=== PATIENT | female | born 1940 | race Caucasian/White ===

== ENCOUNTER 2017-10-25 12:09 | Emergency (ER) | payer MEDICARE, OTHER ==
[~2017-10-25] VITALS: Ht 142.2 cm; Wt 64.4 kg
[~2017-10-25 12:09] MED LIST: ASCO500 PO; ASPI81CH PO; ATOR20 PO; Augmentin 875-1 EACH PO; CALMAGZIN PO; CHOL10002 PO; Excedrin Extra1 EACH PO; FERSU300 PO; FLUC150A PO; GLUC500 PO; GLUCHON PO; HYDACE5 PO; HYDCHL12.5 PO; Hydrochloroth12.5 MG PO; Isosorbide Mono30 MG PO; KETO15TC TOP; LANS30EC PO; LISHYD1012 PO; METF500 PO; METF500C PO; METO25ER PO; MULVITMIND PO; Multiple Vitam1 EAC1 PO; NAPR220 PO; ONDA4 PO; QUININE SULFAT324 MG PO; SULTRIDS PO; Super B Comple150 MG PO; TURMERIC500 M1 PO
[2017-10-25] MEDS ORDERED: HYDACE25S PR (12:49)
== END 2017-10-25 13:05 | disposition home or self-care (01) ==
LOC: ER 12:09
DX: K59.00 Constipation, unspecified (principal); K64.4 Residual hemorrhoidal skin tags; Z88.8 Allergy status to other drugs, medicaments and biological substances; Z79.899 Other long term (current) drug therapy; Z79.84 Long term (current) use of oral hypoglycemic drugs; Z79.82 Long term (current) use of aspirin; Z79.2 Long term (current) use of antibiotics; E11.9 Type 2 diabetes mellitus without complications; I10 Essential (primary) hypertension
CPT/HCPCS: 99283

== ENCOUNTER 2017-11-05 13:56 | Emergency (ER) | payer MEDICARE, OTHER ==
[~2017-11-05] VITALS: Ht 142.2 cm; Wt 61.7 kg
[~2017-11-05 13:56] MED LIST changes: +HYDACE25S PR
[2017-11-05 14:32] LABS: BASOPHILS ABSOLUTE AUTO 0.04 K/mm3 (0.00-0.23); BASOPHILS PERCENT AUTO 1 % (0-2); EOSINOPHILS ABSOLUTE AUTO 0.08 K/mm3 (0.00-0.68); EOSINOPHILS PERCENT AUTO 1 % (0-6); Hematocrit 43.2 % (33.0-51.0); Hemoglobin 13.5 g/dL (11.5-16.0); IMMATURE GRAN ABSOLUTE AUTO 0.08 K/mm3 (0.00-0.10); IMMATURE GRAN PERCENT AUTO 1 % (0-1); LYMPHOCYTES PERCENT AUTO 15 % (21-46); MONOCYTES ABSOLUTE AUTO 0.63 K/mm3 (0.16-1.47); MONOCYTES PERCENT AUTO 8 % (4-13); Mean Corpuscular HGB 29.6 pg (26.0-34.0); Mean Corpuscular HGB Conc 31.3 g/dL (31.5-36.5); Mean Corpuscular Volume 95 fL (80-100); Mean Platelet Volume 9.4 fL (9.1-12.4); NEUTROPHILS ABSOLUTE AUTO 6.26 K/mm3 (1.96-9.15); NEUTROPHILS PERCENT AUTO 75 % (41-73); Platelet Count 304 K/mm3 (150-400); RDW Coefficient Variation 15.9 % (11.7-14.2); RDW Standard Deviation 56.4 fL (35.1-46.3); Red Blood Cell Count 4.56 M/mm3 (3.80-5.20); White Blood Cell Count 8.29 K/mm3 (4.00-11.30)
[2017-11-05 14:51] LABS: Alanine Aminotransfer (ALT/SGP 14 U/L (12-78); Albumin, Blood 2.7 g/dL (3.4-5.0); Albumin/Globulin Ratio 0.6 (0.8-1.8); Alk Phos 72 U/L (50-136); Anion Gap 10 mmol/L (6-16); Aspartate Aminotrans (AST/SGOT 13 U/L (12-37); Bilirubin, Total 0.2 mg/dL (0.1-1.0); Blood Urea Nitrogen 16 mg/dL (8-24); Bun/Creatinine Ratio 18.9 (12.0-20.0); CO2, Blood 24 mmol/L (21-32); Calcium, Blood 8.7 mg/dL (8.5-10.1); Chloride, Blood 110 mmol/L (98-108); Creatinine, Blood 0.85 mg/dL (0.40-1.00); Globulin, Blood 4.3 g/dL (2.2-4.0); Glomerular Filtration Rate >60 (60-); Glucose, Blood 123 mg/dL (70-99); Potassium, Blood 3.9 mmol/L (3.5-5.5); Sodium, Blood 144 mmol/L (136-145)
[2017-11-05] MEDS ORDERED: HYDCHL12.5 PO (14:52)
[2017-11-05] MEDS ORDERED: CHRO200 PO (14:53)
[2017-11-05] MEDS ORDERED: Super B Comple150 MG PO (14:53)
[2017-11-05] MEDS ORDERED: Ferrous Sulfat325 MG PO (14:54)
[2017-11-05] MEDS ORDERED: Flagyl500 MG PO (16:14)
== END 2017-11-05 16:57 | disposition home or self-care (01) ==
LOC: ER 13:56
PROVIDERS: Nurse Practitioner Family
DX: K52.9 Noninfective gastroenteritis and colitis, unspecified (principal); I10 Essential (primary) hypertension; E11.9 Type 2 diabetes mellitus without complications; K21.9 Gastro-esophageal reflux disease without esophagitis
CPT/HCPCS: 36415; 74176; 80053; 81000; 85025; 99284

== ENCOUNTER 2017-11-19 19:13 | Emergency (ER) | payer MEDICARE, OTHER ==
[~2017-11-19] VITALS: Ht 142.2 cm; Wt 64.9 kg
[~2017-11-19 19:13] MED LIST changes: +CHRO200 PO; +Ferrous Sulfat325 MG PO; +Flagyl500 MG PO
[2017-11-19] MEDS ORDERED: FURO20 PO (20:47)
[2017-11-19 20:49] LABS: BASOPHILS ABSOLUTE AUTO 0.03 K/mm3 (0.00-0.23); BASOPHILS PERCENT AUTO 0 % (0-2); EOSINOPHILS ABSOLUTE AUTO 0.18 K/mm3 (0.00-0.68); EOSINOPHILS PERCENT AUTO 2 % (0-6); Hematocrit 42.8 % (33.0-51.0); Hemoglobin 13.8 g/dL (11.5-16.0); IMMATURE GRAN ABSOLUTE AUTO 0.04 K/mm3 (0.00-0.10); IMMATURE GRAN PERCENT AUTO 1 % (0-1); LYMPHOCYTES ABSOLUTE AUTO 1.51 K/mm3 (0.84-5.20); LYMPHOCYTES PERCENT AUTO 20 % (21-46); MONOCYTES ABSOLUTE AUTO 0.62 K/mm3 (0.16-1.47); MONOCYTES PERCENT AUTO 8 % (4-13); Mean Corpuscular HGB 30.1 pg (26.0-34.0); Mean Corpuscular HGB Conc 32.2 g/dL (31.5-36.5); Mean Corpuscular Volume 93 fL (80-100); Mean Platelet Volume 9.6 fL (9.1-12.4); NEUTROPHILS ABSOLUTE AUTO 5.03 K/mm3 (1.96-9.15); NEUTROPHILS PERCENT AUTO 68 % (41-73); Platelet Count 269 K/mm3 (150-400); RDW Coefficient Variation 16.3 % (11.7-14.2); RDW Standard Deviation 55.7 fL (35.1-46.3); Red Blood Cell Count 4.59 M/mm3 (3.80-5.20); White Blood Cell Count 7.41 K/mm3 (4.00-11.30)
[2017-11-19 21:11] LABS: Alanine Aminotransfer (ALT/SGP 14 U/L (12-78); Albumin, Blood 2.9 g/dL (3.4-5.0); Albumin/Globulin Ratio 0.8 (0.8-1.8); Alk Phos 53 U/L (50-136); Anion Gap 9 mmol/L (6-16); Aspartate Aminotrans (AST/SGOT 21 U/L (12-37); Bilirubin, Total 0.3 mg/dL (0.1-1.0); Blood Urea Nitrogen 15 mg/dL (8-24); Bun/Creatinine Ratio 15.4 (12.0-20.0); CO2, Blood 24 mmol/L (21-32); Calcium, Blood 8.5 mg/dL (8.5-10.1); Chloride, Blood 106 mmol/L (98-108); Creatinine, Blood 0.97 mg/dL (0.40-1.00); Globulin, Blood 3.8 g/dL (2.2-4.0); Glomerular Filtration Rate 59 (60-); Glucose, Blood 152 mg/dL (70-99); Magnesium, Blood 1.3 mg/dL (1.6-2.4); Potassium, Blood 3.8 mmol/L (3.5-5.5); Sodium, Blood 139 mmol/L (136-145); Total Protein, Blood 6.7 g/dL (6.4-8.2); Troponin I <0.015 ng/mL (0.000-0.040)
== END 2017-11-19 22:10 | disposition home or self-care (01) ==
LOC: ER 19:13
PROVIDERS: Emergency Medicine
DX: E86.0 Dehydration (principal); R60.0 Localized edema; R53.1 Weakness; E11.9 Type 2 diabetes mellitus without complications; Z95.5 Presence of coronary angioplasty implant and graft; Z90.49 Acquired absence of other specified parts of digestive tract; Z88.1 Allergy status to other antibiotic agents; Z88.8 Allergy status to other drugs, medicaments and biological substances; Z88.7 Allergy status to serum and vaccine; Z79.84 Long term (current) use of oral hypoglycemic drugs; Z79.899 Other long term (current) drug therapy
CPT/HCPCS: 36415; 71046; 80053; 81000; 83735; 84443; 84484; 85025; 93005; 93010; 99284

== ENCOUNTER 2017-12-13 05:45 | Inpatient (IN) | payer MEDICARE, OTHER ==
[~2017-12-13] VITALS: Ht 142.2 cm; Wt 66.9 kg
[~2017-12-13 05:45] MED LIST changes: +FURO20 PO
[2017-12-13] MEDS ORDERED: Anucort-Hc25 MG PR (06:18)
[2017-12-13] MEDS ORDERED: DOCU100 PO (06:19)
[2017-12-13] MEDS ORDERED: ISOMON20 PO (06:20)
[2017-12-13] MEDS ORDERED: Nitrostat0.4 MG SL (06:22)
[2017-12-13] MEDS ORDERED: MAGOXI400 PO (06:23)
[2017-12-13 06:44] LABS: BASOPHILS ABSOLUTE AUTO 0.04 K/mm3 (0.00-0.23); BASOPHILS PERCENT AUTO 1 % (0-2); EOSINOPHILS ABSOLUTE AUTO 0.18 K/mm3 (0.00-0.68); EOSINOPHILS PERCENT AUTO 2 % (0-6); Hematocrit 35.4 % (33.0-51.0); Hemoglobin 11.1 g/dL (11.5-16.0); IMMATURE GRAN PERCENT AUTO 1 % (0-1); LYMPHOCYTES ABSOLUTE AUTO 1.03 K/mm3 (0.84-5.20); LYMPHOCYTES PERCENT AUTO 13 % (21-46); MONOCYTES ABSOLUTE AUTO 0.49 K/mm3 (0.16-1.47); MONOCYTES PERCENT AUTO 6 % (4-13); Mean Corpuscular HGB 30.3 pg (26.0-34.0); Mean Corpuscular HGB Conc 31.4 g/dL (31.5-36.5); Mean Corpuscular Volume 97 fL (80-100); Mean Platelet Volume 9.5 fL (9.1-12.4); NEUTROPHILS ABSOLUTE AUTO 6.15 K/mm3 (1.96-9.15); NEUTROPHILS PERCENT AUTO 77 % (41-73); Platelet Count 256 K/mm3 (150-400); RDW Coefficient Variation 15.5 % (11.7-14.2); Red Blood Cell Count 3.66 M/mm3 (3.80-5.20); White Blood Cell Count 7.99 K/mm3 (4.00-11.30)
[2017-12-13 07:03] LABS: Albumin, Blood 2.3 g/dL (3.4-5.0); Albumin/Globulin Ratio 0.7 (0.8-1.8); Bilirubin, Total 0.3 mg/dL (0.1-1.0); Bun/Creatinine Ratio 20.1 (12.0-20.0); Globulin, Blood 3.4 g/dL (2.2-4.0); Total Protein, Blood 5.7 g/dL (6.4-8.2)
[2017-12-13 07:16] LABS: International Normalized Ratio 1.09; Prothrombin Time Results 11.4 Sec (9.7-11.5)
[2017-12-13] MEDS ORDERED: METO25ER PO (13:15)
[2017-12-13] MEDS ORDERED: CHOL10002 PO (13:15)
[2017-12-14 04:57] LABS: BASOPHILS ABSOLUTE AUTO 0.05 K/mm3 (0.00-0.23); BASOPHILS PERCENT AUTO 1 % (0-2); EOSINOPHILS ABSOLUTE AUTO 0.24 K/mm3 (0.00-0.68); EOSINOPHILS PERCENT AUTO 4 % (0-6); Hemoglobin 8.6 g/dL (11.5-16.0); IMMATURE GRAN ABSOLUTE AUTO 0.06 K/mm3 (0.00-0.10); IMMATURE GRAN PERCENT AUTO 1 % (0-1); LYMPHOCYTES ABSOLUTE AUTO 1.24 K/mm3 (0.84-5.20); LYMPHOCYTES PERCENT AUTO 21 % (21-46); MONOCYTES ABSOLUTE AUTO 0.49 K/mm3 (0.16-1.47); MONOCYTES PERCENT AUTO 8 % (4-13); Mean Corpuscular HGB 30.6 pg (26.0-34.0); Mean Corpuscular HGB Conc 31.9 g/dL (31.5-36.5); Mean Corpuscular Volume 96 fL (80-100); NEUTROPHILS ABSOLUTE AUTO 3.76 K/mm3 (1.96-9.15); NEUTROPHILS PERCENT AUTO 64 % (41-73); Platelet Count 205 K/mm3 (150-400); RDW Coefficient Variation 15.5 % (11.7-14.2); RDW Standard Deviation 55.1 fL (35.1-46.3); Red Blood Cell Count 2.81 M/mm3 (3.80-5.20); White Blood Cell Count 5.84 K/mm3 (4.00-11.30)
[2017-12-14 05:18] LABS: Albumin, Blood 1.9 g/dL (3.4-5.0); Anion Gap 7 mmol/L (6-16); Blood Urea Nitrogen 12 mg/dL (8-24); Bun/Creatinine Ratio 16.2 (12.0-20.0); CO2, Blood 24 mmol/L (21-32); Calcium, Blood 7.4 mg/dL (8.5-10.1); Chloride, Blood 113 mmol/L (98-108); Creatinine, Blood 0.74 mg/dL (0.40-1.00); Glomerular Filtration Rate >60 (60-); Glucose, Blood 75 mg/dL (70-99); Phosphorus, Blood 2.7 mg/dL (2.5-4.9); Potassium, Blood 4.2 mmol/L (3.5-5.5); Sodium, Blood 144 mmol/L (136-145)
[2017-12-16 04:18] LABS: BASOPHILS ABSOLUTE AUTO 0.03 K/mm3 (0.00-0.23); BASOPHILS PERCENT AUTO 1 % (0-2); EOSINOPHILS ABSOLUTE AUTO 0.38 K/mm3 (0.00-0.68); EOSINOPHILS PERCENT AUTO 7 % (0-6); Hematocrit 27.5 % (33.0-51.0); Hemoglobin 8.8 g/dL (11.5-16.0); IMMATURE GRAN ABSOLUTE AUTO 0.06 K/mm3 (0.00-0.10); IMMATURE GRAN PERCENT AUTO 1 % (0-1); LYMPHOCYTES ABSOLUTE AUTO 1.31 K/mm3 (0.84-5.20); LYMPHOCYTES PERCENT AUTO 25 % (21-46); MONOCYTES ABSOLUTE AUTO 0.56 K/mm3 (0.16-1.47); MONOCYTES PERCENT AUTO 11 % (4-13); Mean Corpuscular HGB 30.6 pg (26.0-34.0); Mean Corpuscular Volume 96 fL (80-100); Mean Platelet Volume 9.8 fL (9.1-12.4); NEUTROPHILS ABSOLUTE AUTO 2.99 K/mm3 (1.96-9.15); NEUTROPHILS PERCENT AUTO 56 % (41-73); Platelet Count 224 K/mm3 (150-400); RDW Coefficient Variation 15.9 % (11.7-14.2); RDW Standard Deviation 54.5 fL (35.1-46.3); Red Blood Cell Count 2.88 M/mm3 (3.80-5.20); White Blood Cell Count 5.33 K/mm3 (4.00-11.30)
[2017-12-18] MEDS ORDERED: CEFD300 PO (16:43)
[2017-12-18] MEDS ORDERED: METR500 PO (16:44)
== END 2017-12-18 18:22 | disposition home or self-care (01) | DRG 378 ==
LOC: ER 05:45 → SURS 09:04
PROVIDERS: Emergency Medicine; Family Medicine; Internal Medicine
DX: K57.21 Diverticulitis of large intestine with perforation and abscess with bleeding (principal); D62 Acute posthemorrhagic anemia; E11.9 Type 2 diabetes mellitus without complications; I10 Essential (primary) hypertension; I25.10 Atherosclerotic heart disease of native coronary artery without angina pectoris; E78.5 Hyperlipidemia, unspecified; K21.9 Gastro-esophageal reflux disease without esophagitis; K22.70 Barrett's esophagus without dysplasia; I12.9 Hypertensive chronic kidney disease with stage 1 through stage 4 chronic kidney disease, or unspecified chronic kidney disease; E11.22 Type 2 diabetes mellitus with diabetic chronic kidney disease; N18.3 Chronic kidney disease, stage 3 (moderate); M47.892 Other spondylosis, cervical region
CPT/HCPCS: 36415; 74177; 80053; 80069; 82947; 83690; 85025; 85610; 96361; 96365; 96366; 99285; C9113; J0295; J0696; J3480; J7120; Q9967

== ENCOUNTER 2018-02-02 11:51 | Emergency (ER) | payer MEDICARE, OTHER ==
[~2018-02-02] VITALS: Ht 142.2 cm; Wt 56.2 kg
[~2018-02-02 11:51] MED LIST changes: +Anucort-Hc25 MG PR; +CEFD300 PO; +DOCU100 PO; +ISOMON20 PO; +MAGOXI400 PO; +METR500 PO; +Nitrostat0.4 MG SL
[2018-02-02 13:04] LABS: Alanine Aminotransfer (ALT/SGP 32 U/L (12-78); Albumin, Blood 2.9 g/dL (3.4-5.0); Albumin/Globulin Ratio 0.7 (0.8-1.8); Alk Phos 78 U/L (50-136); Anion Gap 9 mmol/L (6-16); Aspartate Aminotrans (AST/SGOT 19 U/L (12-37); Bilirubin, Total 0.4 mg/dL (0.1-1.0); Blood Urea Nitrogen 26 mg/dL (8-24); Bun/Creatinine Ratio 37.1 (12.0-20.0); CO2, Blood 24 mmol/L (21-32); Calcium, Blood 9.3 mg/dL (8.5-10.1); Chloride, Blood 102 mmol/L (98-108); Globulin, Blood 4.1 g/dL (2.2-4.0); Glomerular Filtration Rate >60 (60-); Glucose, Blood 124 mg/dL (70-99); Potassium, Blood 4.2 mmol/L (3.5-5.5); Sodium, Blood 135 mmol/L (136-145)
[2018-02-02 13:31] LABS: BASOPHILS ABSOLUTE AUTO 0.01 K/mm3 (0.00-0.23); BASOPHILS PERCENT AUTO 0 % (0-2); EOSINOPHILS ABSOLUTE AUTO 0.01 K/mm3 (0.00-0.68); EOSINOPHILS PERCENT AUTO 0 % (0-6); Hematocrit 33.2 % (33.0-51.0); Hemoglobin 10.4 g/dL (11.5-16.0); IMMATURE GRAN ABSOLUTE AUTO 0.15 K/mm3 (0.00-0.10); IMMATURE GRAN PERCENT AUTO 1 % (0-1); LYMPHOCYTES ABSOLUTE AUTO 0.87 K/mm3 (0.84-5.20); LYMPHOCYTES PERCENT AUTO 8 % (21-46); MONOCYTES ABSOLUTE AUTO 0.75 K/mm3 (0.16-1.47); MONOCYTES PERCENT AUTO 7 % (4-13); Mean Corpuscular HGB 26.9 pg (26.0-34.0); Mean Corpuscular HGB Conc 31.3 g/dL (31.5-36.5); Mean Corpuscular Volume 86 fL (80-100); Mean Platelet Volume 10.6 fL (9.1-12.4); NEUTROPHILS ABSOLUTE AUTO 9.32 K/mm3 (1.96-9.15); NEUTROPHILS PERCENT AUTO 84 % (41-73); Platelet Count 349 K/mm3 (150-400); RDW Coefficient Variation 14.6 % (11.7-14.2); RDW Standard Deviation 46.2 fL (35.1-46.3); Red Blood Cell Count 3.86 M/mm3 (3.80-5.20); White Blood Cell Count 11.11 K/mm3 (4.00-11.30)
== END 2018-02-02 17:01 | disposition home or self-care (01) ==
LOC: ER 11:51
PROVIDERS: Emergency Medicine
DX: K57.30 Diverticulosis of large intestine without perforation or abscess without bleeding (principal); I25.10 Atherosclerotic heart disease of native coronary artery without angina pectoris; I12.0 Hypertensive chronic kidney disease with stage 5 chronic kidney disease or end stage renal disease; N18.3 Chronic kidney disease, stage 3 (moderate); K21.9 Gastro-esophageal reflux disease without esophagitis; Z88.8 Allergy status to other drugs, medicaments and biological substances; Z88.7 Allergy status to serum and vaccine; Z79.899 Other long term (current) drug therapy; Z79.84 Long term (current) use of oral hypoglycemic drugs
CPT/HCPCS: 36415; 74177; 80053; 83690; 85025; 99284; J7120; Q9967

== ENCOUNTER 2018-02-04 19:46 | Emergency (ER) | payer MEDICARE, OTHER ==
[~2018-02-04] VITALS: Ht 142.2 cm; Wt 56.7 kg
[2018-02-04] MEDS ORDERED: Colace100 MG PO (23:04)
== END 2018-02-04 23:29 | disposition home or self-care (01) ==
LOC: ER 19:46
DX: K59.00 Constipation, unspecified (principal); Z88.8 Allergy status to other drugs, medicaments and biological substances; Z79.899 Other long term (current) drug therapy; Z79.84 Long term (current) use of oral hypoglycemic drugs; E11.9 Type 2 diabetes mellitus without complications
CPT/HCPCS: 74018; 99283

== ENCOUNTER 2018-02-18 15:50 | Emergency (ER) | payer MEDICARE, OTHER ==
[~2018-02-18] VITALS: Ht 142.2 cm; Wt 56.7 kg
[~2018-02-18 15:50] MED LIST changes: +Colace100 MG PO
[2018-02-18 16:34] LABS: BASOPHILS ABSOLUTE AUTO 0.02 K/mm3 (0.00-0.23); BASOPHILS PERCENT AUTO 0 % (0-2); EOSINOPHILS ABSOLUTE AUTO 0.09 K/mm3 (0.00-0.68); EOSINOPHILS PERCENT AUTO 1 % (0-6); Hemoglobin 10.5 g/dL (11.5-16.0); IMMATURE GRAN ABSOLUTE AUTO 0.04 K/mm3 (0.00-0.10); IMMATURE GRAN PERCENT AUTO 1 % (0-1); LYMPHOCYTES ABSOLUTE AUTO 1.47 K/mm3 (0.84-5.20); LYMPHOCYTES PERCENT AUTO 17 % (21-46); MONOCYTES PERCENT AUTO 8 % (4-13); Mean Corpuscular HGB 26.6 pg (26.0-34.0); Mean Corpuscular HGB Conc 30.9 g/dL (31.5-36.5); Mean Corpuscular Volume 86 fL (80-100); Mean Platelet Volume 9.4 fL (9.1-12.4); NEUTROPHILS ABSOLUTE AUTO 6.43 K/mm3 (1.96-9.15); NEUTROPHILS PERCENT AUTO 74 % (41-73); Platelet Count 402 K/mm3 (150-400); RDW Coefficient Variation 14.9 % (11.7-14.2); RDW Standard Deviation 46.8 fL (35.1-46.3); Red Blood Cell Count 3.95 M/mm3 (3.80-5.20); White Blood Cell Count 8.75 K/mm3 (4.00-11.30)
[2018-02-18 16:54] LABS: Alanine Aminotransfer (ALT/SGP 14 U/L (12-78); Albumin/Globulin Ratio 0.7 (0.8-1.8); Alk Phos 107 U/L (50-136); Anion Gap 10 mmol/L (6-16); Aspartate Aminotrans (AST/SGOT 13 U/L (12-37); Bilirubin, Total 0.2 mg/dL (0.1-1.0); Blood Urea Nitrogen 24 mg/dL (8-24); Bun/Creatinine Ratio 26.2 (12.0-20.0); CO2, Blood 26 mmol/L (21-32); Calcium, Blood 9.3 mg/dL (8.5-10.1); Chloride, Blood 99 mmol/L (98-108); Creatinine, Blood 0.92 mg/dL (0.40-1.00); Globulin, Blood 4.6 g/dL (2.2-4.0); Glomerular Filtration Rate >60 (60-); Glucose, Blood 204 mg/dL (70-99); Potassium, Blood 3.2 mmol/L (3.5-5.5); Sodium, Blood 135 mmol/L (136-145); Total Protein, Blood 7.6 g/dL (6.4-8.2)
== END 2018-02-18 22:52 | disposition home or self-care (01) ==
LOC: ER 15:50
PROVIDERS: Emergency Medicine
DX: I95.9 Hypotension, unspecified (principal); R10.10 Upper abdominal pain, unspecified; E11.9 Type 2 diabetes mellitus without complications; Z88.7 Allergy status to serum and vaccine; Z88.8 Allergy status to other drugs, medicaments and biological substances; Z79.899 Other long term (current) drug therapy; Z79.84 Long term (current) use of oral hypoglycemic drugs; Z87.19 Personal history of other diseases of the digestive system
CPT/HCPCS: 36415; 80053; 83690; 85025; 93005; 93010; 99283

== ENCOUNTER 2018-11-11 15:29 | Inpatient (IN) | payer MEDICARE, OTHER ==
[~2018-11-11] VITALS: Ht 139.7 cm; Wt 61.6 kg
[~2018-11-11 15:29] MED LIST changes: -BISA5EC PO; -CRANBERRY PLUS1 EACH PO; -GLIM2 PO; -GLUCOSAMINE CH1 EACH PO; -LO-DOSE ASPIRIN81 MG PO; -Magnesium Oxid500 MG PO
[2018-11-11 18:37] LABS: Percent Saturation 3.6 % (15.0-50.0)
[2018-11-11] MEDS ORDERED: GLIM2 PO (18:47)
--- NOTE | 2018-11-11 19:22 | NUR ---
Initial Visit: Palliative Care Consult for AD/POLST. Pt is A&O and denies pain at this time. She reports 2/7 anxiety due to anticipation of waiting for a room assignment. She denies dyspnea at rest but experiences significant SOB with ambulation. She reports walking approximately 15 feet and becoming dyspneic. Pt's daughter Sandie and Pt's Stanton at bedside. Sandie reports Pt experiences intermittent depression. Pt agrees and states this is due to her memory issues and inability to participate in many activities. Engaged in therapeutic conversation about goals of care. Pt reports that she lives at home with her . Daughter lives next door, and other family members live close by. Pt is of Mormonism johnnie. Offered Jump Iron Machine Presser visit and Pt is agreeable. 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 Discussed AD/POLST and Pt reports having an advanced directive at home. She reports that she will have a family member bring a copy in. Pt reports her wishes for life sustaining measures are CPR, limited treatment, and no artificial nutrition by tube. Pt and family report only concern at this time is the need for caregivers in the home. They would like to find out if Pt qualifies for assistance with caregivers. No other concerns reported at this time. Plan: Will place spiritual care consult for daily visits. Will place social service consult for assistance and education on obtaining caregivers. Will obtain copy of advanced directive when family brings in. Will remain available.
[2018-11-11 19:45] LABS: International Normalized Ratio 0.97; Prothrombin Time Results 10.3 Sec (9.7-11.5)
[2018-11-11 21:45] LABS: Source, Urine Clean Catch
[2018-11-11 22:01] LABS: Bilirubin, Urine Neg (Neg); Blood, Urine 4+ (Neg); Glucose Qualitative, Urine Neg (Neg); Ketones, Urine Neg (Neg); Leukocyte Esterase, Urine 3+ (Neg); Nitrite, Urine Neg (Neg); Protein, Urine 2+ (Neg); Urobilinogen, Urine NORM (Normal)
[2018-11-11 22:32] LABS: Appearance, Urine Hazy (Clear); Color, Urine Yellow (P-Yellow); White Blood Cells, Urine TNTC /hpf (0-5)
[2018-11-11 22:33] LABS: Bacteria Many /hpf; Squamous Epithelial Cells Few /hpf (Few)
[2018-11-11 23:20] LABS: Adenovirus Not Detected (NOT DETECT); Coronavirus 229E Not Detected (NOT DETECT); Coronavirus HKU1 Not Detected (NOT DETECT); Coronavirus NL63 Not Detected (NOT DETECT); Coronavirus OC43 Not Detected (NOT DETECT); Human Metapneumovirus Not Detected (NOT DETECT); Human Rhinovirus/Enterovirus Not Detected (NOT DETECT); Influenza A Not Detected (NOT DETECT); Influenza A/2009-H1 Not Detected (NOT DETECT); Influenza A/H1 Not Detected (NOT DETECT); Influenza A/H3 Not Detected (NOT DETECT)
[2018-11-11 23:21] LABS: Bordetella pertussis Not Detected (NOT DETECT); Chlamydophila pneumoniae Not Detected (NOT DETECT); Influenza B Not Detected (NOT DETECT); Mycoplasma pneumoniae Not Detected (NOT DETECT); Parainfluenza Virus 1 Not Detected (NOT DETECT); Parainfluenza Virus 2 Not Detected (NOT DETECT); Parainfluenza Virus 3 Not Detected (NOT DETECT); Parainfluenza Virus 4 Not Detected (NOT DETECT); Respiratory Syncytial Virus Not Detected (NOT DETECT)
[2018-11-12 02:33] LABS: BASOPHILS ABSOLUTE AUTO 0.02 K/mm3 (0.00-0.23); BASOPHILS PERCENT AUTO 0 % (0-2); EOSINOPHILS PERCENT AUTO 0 % (0-6); Hematocrit 26.4 % (33.0-51.0); Hemoglobin 7.6 g/dL (11.5-16.0); IMMATURE GRAN ABSOLUTE AUTO 0.08 K/mm3 (0.00-0.10); IMMATURE GRAN PERCENT AUTO 1 % (0-1); LYMPHOCYTES ABSOLUTE AUTO 1.71 K/mm3 (0.84-5.20); LYMPHOCYTES PERCENT AUTO 14 % (21-46); MONOCYTES ABSOLUTE AUTO 0.77 K/mm3 (0.16-1.47); MONOCYTES PERCENT AUTO 6 % (4-13); Mean Corpuscular HGB 21.8 pg (26.0-34.0); Mean Corpuscular HGB Conc 28.8 g/dL (31.5-36.5); Mean Corpuscular Volume 76 fL (80-100); Mean Platelet Volume 9.7 fL (9.1-12.4); NEUTROPHILS ABSOLUTE AUTO 9.85 K/mm3 (1.96-9.15); NEUTROPHILS PERCENT AUTO 79 % (41-73); Platelet Count 319 K/mm3 (150-400); RDW Coefficient Variation 16.7 % (11.7-14.2); RDW Standard Deviation 45.2 fL (35.1-46.3); Red Blood Cell Count 3.49 M/mm3 (3.80-5.20); White Blood Cell Count 12.43 K/mm3 (4.00-11.30)
[2018-11-12 02:49] LABS: Anion Gap 9 mmol/L (6-16); Blood Urea Nitrogen 25 mg/dL (8-24); Bun/Creatinine Ratio 26.7 (12.0-20.0); CO2, Blood 22 mmol/L (21-32); Calcium, Blood 8.4 mg/dL (8.5-10.1); Chloride, Blood 110 mmol/L (98-108); Creatinine, Blood 0.94 mg/dL (0.40-1.00); Glomerular Filtration Rate >60 (60-); Glucose, Blood 96 mg/dL (70-99); Potassium, Blood 4.8 mmol/L (3.5-5.5); Sodium, Blood 141 mmol/L (136-145)
--- NOTE | 2018-11-12 04:12 | NUR ---
SHIFT SUMMARY RECEIVED REPORT FROM NAT SCHMIDT IN ED. ARRIVED TO MEDICAL FLOOR VIA WHEELCHAIR. MINIMAL ASSIST INTO BED. DAUGHTER ACCOMPAINED TO ROOM. ORIENTED TO ROOM AND CALL LIGHT. A/O, ABLE TO MAKE NEEDS KNOWN. COOPERATIVE WITH CARE. CALLS AND ANSWERS QUESTIONS APPROPRIATELY. DENIES ANY PAIN/DISCOMFORT INCLUDING CHEST PAIN. RESULTS NEGATIVE FOR RESPIRATORY PANEL. UA OBTAINED AND SENT FOR ANALYSIS. TELEMETRY PLACED RUNNING NSR WITH 1ST DEGREE IN 80'S PER PCU PAD TUFTER. SBA TO BATHROOM. URINE APPEARS CLOUDY YELLOW WITH SEDIMENTATION. DID NOT APPEAR TO REST MUCH THIS SHIFT; STATES THAT SHE HAS BEEN KNOWN TO HAVE SLEEPLESS NIGHTS, NEW PLACE AND DIFFERENT BED. APPEARS HYPERTENSIVE; HOWEVER, ON TREND WITH PREVIOUS PRESSURES. PULSE SLIGHTLY ELEVATED. ALL OTHER VS WNL. NO ACUTE CHANGES OVERNIGHT. BED IN LOWEST POSITION. CALL LIGHT AND BELONGINGS WITHIN REACH. WCTM. REPORT TO GEORGIE JOHNS.
--- NOTE | 2018-11-12 10:46 | NUR ---
Patient was lying in bed and alert when I entered patient's room. I introduced myself and patient stated that she was hoping I would stop by. Patient openly shared about her love for God, love for family and love for animals. Patient talked about her current medical issues and her desire to "be around" long enough to get her things in order for her family but is ready to go home to be with the Lord. Patient is very kind and engaging. I provided companionship, pastoral vocational guidance counselor and prayer. Patient responded well and displayed evidence of restored johnnie. Patient expressed gratitude for the visit.
[2018-11-12] MEDS ORDERED: CRANBERRY PLUS1 EACH PO (14:21)
[2018-11-12] MEDS ORDERED: GLUCOSAMINE CH1 EACH PO (14:22)
[2018-11-12] MEDS ORDERED: BISA5EC PO (14:22)
[2018-11-12] MEDS ORDERED: Magnesium Oxid500 MG PO (14:22)
[2018-11-12] MEDS ORDERED: LO-DOSE ASPIRIN81 MG PO (14:23)
--- NOTE | 2018-11-12 15:25 | NUR ---
ECHOCARDIOGRAM COMPLETE
--- NOTE | 2018-11-12 18:02 | NUR ---
SHIFT SUMMARY PATIENT PLEASANT. INDEPENDENT IN THE ROOM. HAD A DOSE OF LASIX TODAY. PATIENT HAS ONE UNIT OF PRBCS TRANSFUSING. NO ACUTE SIGNS OF REACTION. PATIENTS LUNGS WERE CLEAR AND DIM. SHE DID NOT LIKE THE DOSE OF LASIX DUE TO THE CONCERN FOR THE INCREASED NEED TO URINATE.
--- NOTE | 2018-11-13 06:30 | NUR ---
SHIFT SUMMARY PT SLEPT WELL T/O NIGHT. VSS. AOX4. DENIES PAIN, N/V, OR SOB. PER TELE MANAGER BEVERAGE PT IS NSR W/1ST DEGREE HEART BLOCK & HR 81. UNIT OF BLOOD FINISHED LAST NIGHT AROUND 2029, NO SOB OR CHANGES W/VITALS AFTER RECIEVING BLOOD. PT UP INDEPENDANTLY TO RESTROOM. CALL LIGHT IN REACH & I WILL CONT. TO MONITOR PT.
[2018-11-13 12:39] LABS: BASOPHILS ABSOLUTE AUTO 0.02 K/mm3 (0.00-0.23); BASOPHILS PERCENT AUTO 0 % (0-2); EOSINOPHILS ABSOLUTE AUTO 0.05 K/mm3 (0.00-0.68); EOSINOPHILS PERCENT AUTO 1 % (0-6); Hematocrit 32.1 % (33.0-51.0); Hemoglobin 9.5 g/dL (11.5-16.0); IMMATURE GRAN ABSOLUTE AUTO 0.07 K/mm3 (0.00-0.10); IMMATURE GRAN PERCENT AUTO 1 % (0-1); LYMPHOCYTES ABSOLUTE AUTO 1.73 K/mm3 (0.84-5.20); LYMPHOCYTES PERCENT AUTO 18 % (21-46); MONOCYTES ABSOLUTE AUTO 1.06 K/mm3 (0.16-1.47); MONOCYTES PERCENT AUTO 11 % (4-13); Mean Corpuscular HGB 23.1 pg (26.0-34.0); Mean Corpuscular HGB Conc 29.6 g/dL (31.5-36.5); Mean Corpuscular Volume 78 fL (80-100); Mean Platelet Volume 9.9 fL (9.1-12.4); NEUTROPHILS ABSOLUTE AUTO 6.71 K/mm3 (1.96-9.15); NEUTROPHILS PERCENT AUTO 70 % (41-73); NRBC ABSOLUTE 0.03 K/mm3 (0.00-0.02); NRBC Auto 0.3 /100 WBC (0.0-0.2); Platelet Count 336 K/mm3 (150-400); RDW Coefficient Variation 17.1 % (11.7-14.2); RDW Standard Deviation 47.8 fL (35.1-46.3); Red Blood Cell Count 4.12 M/mm3 (3.80-5.20); White Blood Cell Count 9.64 K/mm3 (4.00-11.30)
[2018-11-13] MEDS ORDERED: Isosorbide Mono30 MG PO (14:15)
[2018-11-13] MEDS ORDERED: CEPH500 PO (14:15)
--- NOTE | 2018-11-13 14:49 | NUR ---
DISCHARGE SUMMARY PATIENT INSTRUCTIONS GIVEN TO THE PATIENT INCLUDING PATIENT EDUCATION. PATIENT EDUCATED ON ALL NEW MEDICATIONS. INSTRUCTED TO FOLLOW UP WITH PRIMARY CARE. NO ACUTE CONCERNS. PATIENT IV REMOVED. WHEELED OUT BY SKYDIVING INSTRUCTOR.
== END 2018-11-13 14:58 | disposition home or self-care (01) | DRG 689 ==
LOC: ER 15:29 → MEDS 17:59 → ER 19:42 → MEDS 20:09 → ENPENDDIS 11-13 14:51 → MEDS 11-13 14:58
PROVIDERS: Internal Medicine; Nurse Practitioner Acute Care; ADMIT Internal Medicine
PROC: 30233N1 Transfusion of Nonautologous Red Blood Cells into Peripheral Vein, Percutaneous Approach (ICD-10-PCS; principal; 2018-11-11)
DX: N39.0 Urinary tract infection, site not specified (principal); I50.31 Acute diastolic (congestive) heart failure; I13.0 Hypertensive heart and chronic kidney disease with heart failure and stage 1 through stage 4 chronic kidney disease, or unspecified chronic kidney disease; R65.10 Systemic inflammatory response syndrome (SIRS) of non-infectious origin without acute organ dysfunction; I24.8 Other forms of acute ischemic heart disease; N17.9 Acute kidney failure, unspecified; D62 Acute posthemorrhagic anemia; B96.20 Unspecified Escherichia coli [E. coli] as the cause of diseases classified elsewhere; N18.3 Chronic kidney disease, stage 3 (moderate); E11.22 Type 2 diabetes mellitus with diabetic chronic kidney disease; D63.1 Anemia in chronic kidney disease; K57.90 Diverticulosis of intestine, part unspecified, without perforation or abscess without bleeding; E78.5 Hyperlipidemia, unspecified; K21.9 Gastro-esophageal reflux disease without esophagitis; K22.70 Barrett's esophagus without dysplasia; I25.10 Atherosclerotic heart disease of native coronary artery without angina pectoris; Z95.5 Presence of coronary angioplasty implant and graft; I44.0 Atrioventricular block, first degree
CPT/HCPCS: 36415; 36430; 80048; 81001; 82728; 82947; 83540; 83550; 83735; 84145; 84484; 85025; 85610; 85730; 86850; 86900; 86901; 86923; 87077; 87086; 87186; 87486; 87581; 87633; 87798; 93005; 93010; 93306; 99285-25; J0696; J1650; J1940; J7050; P9016

== ENCOUNTER → 2018-11-11 | Outpatient (CLI) | payer MEDICARE, OTHER ==
[~2018-11-11] MED LIST changes: +BISA5EC PO; +CRANBERRY PLUS1 EACH PO; +GLIM2 PO; +GLUCOSAMINE CH1 EACH PO; -ISOMON20 PO; +LO-DOSE ASPIRIN81 MG PO; -METF500C PO; +Magnesium Oxid500 MG PO; +Metformin HCl500 MG PO; +Super B-50 Com1 EACH PO
[2018-11-11 14:26] LABS: BASOPHILS ABSOLUTE AUTO 0.02 K/mm3 (0.00-0.23); BASOPHILS PERCENT AUTO 0 % (0-2); EOSINOPHILS PERCENT AUTO 0 % (0-6); Hematocrit 29.4 % (33.0-51.0); Hemoglobin 8.5 g/dL (11.5-16.0); IMMATURE GRAN ABSOLUTE AUTO 0.13 K/mm3 (0.00-0.10); IMMATURE GRAN PERCENT AUTO 1 % (0-1); LYMPHOCYTES PERCENT AUTO 11 % (21-46); MONOCYTES PERCENT AUTO 7 % (4-13); Mean Corpuscular HGB 21.8 pg (26.0-34.0); Mean Corpuscular HGB Conc 28.9 g/dL (31.5-36.5); Mean Corpuscular Volume 75 fL (80-100); Mean Platelet Volume 9.8 fL (9.1-12.4); NEUTROPHILS ABSOLUTE AUTO 13.75 K/mm3 (1.96-9.15); NEUTROPHILS PERCENT AUTO 81 % (41-73); Platelet Count 393 K/mm3 (150-400); RDW Standard Deviation 45.9 fL (35.1-46.3)
[2018-11-11 14:43] LABS: Bun/Creatinine Ratio 26.4 (12.0-20.0); Calcium, Blood 8.6 mg/dL (8.5-10.1); Creatinine, Blood 1.25 mg/dL (0.40-1.00); Thyroid Stimulating Hormone 3.021 uIU/mL (0.360-4.800); Troponin I 0.287 ng/mL (0.000-0.040)
== END | disposition home or self-care (01) ==
LOC: LAB SHORT 14:19 → LAB EV 14:19
PROVIDERS: Family Medicine
DX: R06.09 Other forms of dyspnea (principal)
CPT/HCPCS: 80048; 83880; 84443; 84484; 85025

== ENCOUNTER → 2018-11-25 | Outpatient (CLI) | payer MEDICARE, OTHER ==
[~2018-11-25] MED LIST changes: +BISA5EC PO; +CEPH500 PO; +CRANBERRY PLUS1 EACH PO; +GLIM2 PO; +GLUCOSAMINE CH1 EACH PO; +LO-DOSE ASPIRIN81 MG PO; +Magnesium Oxid500 MG PO; +SACC250C PO
[2018-11-25 18:52] LABS: Appearance, Urine Turbid (Clear); Bilirubin, Urine Neg (Neg); Blood, Urine 4+ (Neg); Color, Urine Yellow (P-Yellow); Glucose Qualitative, Urine Neg (Neg); Ketones, Urine 1+ (Neg); Leukocyte Esterase, Urine 3+ (Neg); Nitrite, Urine Neg (Neg); Protein, Urine 3+ (Neg); Urobilinogen, Urine NORM (Normal); pH, Urine 6.5 (5.0-8.0)
[2018-11-25 19:21] LABS: Bacteria Many /hpf; Red Blood Cells, Urine 0-2 /hpf (0-2); Squamous Epithelial Cells Not Seen /hpf (Few); White Blood Cells, Urine TNTC /hpf (0-5)
== END | disposition home or self-care (01) ==
LOC: LAB SHORT 17:49 → LAB 17:49
PROVIDERS: Nurse Practitioner Family
DX: N39.0 Urinary tract infection, site not specified (principal)
CPT/HCPCS: 81001; 87077; 87086; 87186

== ENCOUNTER → 2018-11-25 | Outpatient (CLI) | payer MEDICARE, OTHER ==
[2018-11-25 20:15] LABS: Adenovirus F 40/41 Not Detected (NOT DETECT); Astrovirus Not Detected (NOT DETECT); Campylobacter Sp Not Detected (NOT DETECT); Cryptosporidium Not Detected (NOT DETECT); Cyclospora Cayetanensis Not Detected (NOT DETECT); E. Coli O157 Not Detected (NOT DETECT); Entamoeba Histolytica Not Detected (NOT DETECT); Enteroaggregative E. coli-EAEC Not Detected (NOT DETECT); Enteropathogenic E. coli-EPEC Not Detected (NOT DETECT); Enterotoxigenic E. coli-ETEC Not Detected (NOT DETECT); Giardia Lamblia Not Detected (NOT DETECT); Norovirus GI/GII Not Detected (NOT DETECT); Plesiomonas Shigelloides Not Detected (NOT DETECT); Rotavirus A Not Detected (NOT DETECT); Salmonella Sp Not Detected (NOT DETECT); Sapovirus Not Detected (NOT DETECT); Shiga Toxin-prod E. coli-STEC Not Detected (NOT DETECT); Shigella/Enteroin E. coli-EIEC Not Detected (NOT DETECT); Vibrio Cholerae Not Detected (NOT DETECT); Vibrio Sp Not Detected (NOT DETECT); Yersinia Enterocolitica Not Detected (NOT DETECT)
== END | disposition home or self-care (01) ==
LOC: LAB SHORT 11:08 → LAB 11:08
PROVIDERS: Nurse Practitioner Family
DX: A41.9 Sepsis, unspecified organism (principal); N39.0 Urinary tract infection, site not specified; A07.8 Other specified protozoal intestinal diseases; R10.817 Generalized abdominal tenderness; R68.81 Early satiety
CPT/HCPCS: 87507

== ENCOUNTER 2018-11-28 13:12 | Inpatient (IN) | payer MEDICARE, OTHER ==
[~2018-11-28] VITALS: Ht 139.7 cm; Wt 64.2 kg
[~2018-11-28 13:12] MED LIST changes: -SACC250C PO
[2018-11-28 13:58] LABS: Source, Urine Clean Catch
[2018-11-28 14:06] LABS: Appearance, Urine Turbid (Clear); Bilirubin, Urine Neg (Neg); Blood, Urine 4+ (Neg); Color, Urine Yellow (P-Yellow); Glucose Qualitative, Urine Neg (Neg); Ketones, Urine Neg (Neg); Leukocyte Esterase, Urine 3+ (Neg); Nitrite, Urine Neg (Neg); Protein, Urine 3+ (Neg); Specific Gravity, Urine 1.025 (1.003-1.022); Urobilinogen, Urine NORM (Normal)
[2018-11-28 14:10] LABS: BASOPHILS ABSOLUTE AUTO 0.06 K/mm3 (0.00-0.23); BASOPHILS PERCENT AUTO 1 % (0-2); EOSINOPHILS ABSOLUTE AUTO 0.39 K/mm3 (0.00-0.68); EOSINOPHILS PERCENT AUTO 6 % (0-6); Hematocrit 32.6 % (33.0-51.0); Hemoglobin 9.3 g/dL (11.5-16.0); IMMATURE GRAN ABSOLUTE AUTO 0.03 K/mm3 (0.00-0.10); IMMATURE GRAN PERCENT AUTO 1 % (0-1); LYMPHOCYTES ABSOLUTE AUTO 1.39 K/mm3 (0.84-5.20); LYMPHOCYTES PERCENT AUTO 21 % (21-46); MONOCYTES ABSOLUTE AUTO 0.53 K/mm3 (0.16-1.47); MONOCYTES PERCENT AUTO 8 % (4-13); Mean Corpuscular HGB 23.2 pg (26.0-34.0); Mean Corpuscular HGB Conc 28.5 g/dL (31.5-36.5); Mean Corpuscular Volume 81 fL (80-100); Mean Platelet Volume 9.3 fL (9.1-12.4); NEUTROPHILS ABSOLUTE AUTO 4.15 K/mm3 (1.96-9.15); NEUTROPHILS PERCENT AUTO 63 % (41-73); Platelet Count 386 K/mm3 (150-400); RDW Coefficient Variation 19.1 % (11.7-14.2); RDW Standard Deviation 56.2 fL (35.1-46.3); Red Blood Cell Count 4.01 M/mm3 (3.80-5.20); White Blood Cell Count 6.55 K/mm3 (4.00-11.30)
[2018-11-28 14:16] LABS: White Blood Cells, Urine 50-100 /hpf (0-5)
[2018-11-28 14:17] LABS: Bacteria Few /hpf; Squamous Epithelial Cells Few /hpf (Few)
[2018-11-28 14:18] LABS: Alanine Aminotransfer (ALT/SGP 17 U/L (12-78); Albumin/Globulin Ratio 0.8 (0.8-1.8); Alk Phos 89 U/L (50-136); Anion Gap 6 mmol/L (6-16); Aspartate Aminotrans (AST/SGOT 14 U/L (12-37); Bilirubin, Total 0.3 mg/dL (0.1-1.0); Blood Urea Nitrogen 26 mg/dL (8-24); Bun/Creatinine Ratio 28.3 (12.0-20.0); CO2, Blood 26 mmol/L (21-32); Calcium, Blood 10.4 mg/dL (8.5-10.1); Chloride, Blood 109 mmol/L (98-108); Creatinine, Blood 0.92 mg/dL (0.40-1.00); Globulin, Blood 3.8 g/dL (2.2-4.0); Glomerular Filtration Rate >60 (60-); Glucose, Blood 88 mg/dL (70-99); Sodium, Blood 141 mmol/L (136-145); Total Protein, Blood 6.8 g/dL (6.4-8.2)
[2018-11-28] MEDS ORDERED: GLIM2 PO (18:50)
--- NOTE | 2018-11-28 19:19 | NUR ---
SHIFT SUMMARY PT A&OX4, VSS, DENIES PAIN, DENIES N&V AT THIS TIME. AMB INDEPENDENT TO BRP. FAMILY AT BEDSIDE. WCTM & TX PER EMAR UNTIL REPORT GIVEN TO ONCOMING NOC RN.
[2018-11-29 06:08] LABS: BASOPHILS ABSOLUTE AUTO 0.06 K/mm3 (0.00-0.23); BASOPHILS PERCENT AUTO 1 % (0-2); EOSINOPHILS ABSOLUTE AUTO 0.63 K/mm3 (0.00-0.68); EOSINOPHILS PERCENT AUTO 11 % (0-6); Hemoglobin 8.3 g/dL (11.5-16.0); IMMATURE GRAN ABSOLUTE AUTO 0.03 K/mm3 (0.00-0.10); IMMATURE GRAN PERCENT AUTO 1 % (0-1); LYMPHOCYTES ABSOLUTE AUTO 1.33 K/mm3 (0.84-5.20); LYMPHOCYTES PERCENT AUTO 23 % (21-46); MONOCYTES ABSOLUTE AUTO 0.64 K/mm3 (0.16-1.47); MONOCYTES PERCENT AUTO 11 % (4-13); Mean Corpuscular HGB 23.4 pg (26.0-34.0); Mean Corpuscular HGB Conc 28.6 g/dL (31.5-36.5); Mean Corpuscular Volume 82 fL (80-100); Mean Platelet Volume 9.4 fL (9.1-12.4); NEUTROPHILS ABSOLUTE AUTO 3.17 K/mm3 (1.96-9.15); NEUTROPHILS PERCENT AUTO 54 % (41-73); Platelet Count 328 K/mm3 (150-400); RDW Coefficient Variation 19.2 % (11.7-14.2); RDW Standard Deviation 57.1 fL (35.1-46.3); Red Blood Cell Count 3.54 M/mm3 (3.80-5.20); White Blood Cell Count 5.86 K/mm3 (4.00-11.30)
[2018-11-29 06:35] LABS: Magnesium, Blood 1.6 mg/dL (1.6-2.4)
[2018-11-29 06:41] LABS: Alanine Aminotransfer (ALT/SGP 9 U/L (12-78); Albumin, Blood 2.5 g/dL (3.4-5.0); Albumin/Globulin Ratio 0.8 (0.8-1.8); Alk Phos 67 U/L (50-136); Anion Gap 8 mmol/L (6-16); Aspartate Aminotrans (AST/SGOT 14 U/L (12-37); Bilirubin, Total 0.2 mg/dL (0.1-1.0); Blood Urea Nitrogen 20 mg/dL (8-24); Bun/Creatinine Ratio 21.3 (12.0-20.0); CO2, Blood 25 mmol/L (21-32); Calcium, Blood 8.5 mg/dL (8.5-10.1); Chloride, Blood 107 mmol/L (98-108); Creatinine, Blood 0.94 mg/dL (0.40-1.00); Globulin, Blood 3.3 g/dL (2.2-4.0); Glomerular Filtration Rate >60 (60-); Glucose, Blood 94 mg/dL (70-99); Sodium, Blood 140 mmol/L (136-145); Total Protein, Blood 5.8 g/dL (6.4-8.2)
--- NOTE | 2018-11-29 07:26 | NUR ---
SHIFT SUMMARY PT A&O X4 T/O SHIFT. PT DENIED NAUSESA T/O SHIFT. PT DECLINED PAIN MEDICATION T/O SHIFT. EDUCATION ON DVT RISKS AND SCD'S; PT STS UNDERSTANDING AND DECLINED SCD'S FOR LATER PART OF SHIFT. SBA TO TOILET. IV GTT PER EMAR. VSS; NO ACUTE CHANGES. ABD SOFT; FEW BT. SIDE RAILS X3 FOR SAFETY. CALL LIGHT IN REACH;PT DEMONSTRATES USE. REPORT GIVEN TO DAY SHIFT RN.
--- NOTE | 2018-11-29 13:28 | NUR ---
Spiritual care visit conducted. Patient was sitting up in bed and alert when I entered the room. , Ralph and friend, Marlys are bedside. Patient shared about her frustration of a quick readmittance to the hospital. Patient emphasized that she is struggling with not having enough patience. I explored areas of gratitude, resources and coping skills, the things that inspire, sources of meaning and dignity. I highlighted those places where patient can draw strength and peace and corrine. I provided pastoral student financial services counselor and prayer, Patient showed signs of an elevated mood.
--- NOTE | 2018-11-29 17:49 | NUR ---
SUMMARY NO ACUTE CHANGES T/O SHIFT. MEDICATED PT ONCE DURING SHIFT PER ORDERS FOR BACK PAIN. TOLERATED CLEAR LIQUID DIET. ADVANCING TO FULL LIQUIDS FOR DINNER. REPORTS ABDOMINAL PAIN ONLY W/ABDOMINAL PALPATION. AMBULATED IN HALLS W CANE AND SBA. DR LYN IN THIS AFTERNOON TO SEE PT. FAMILY AT BEDSIDE.
[2018-11-30 05:12] LABS: BASOPHILS ABSOLUTE AUTO 0.03 K/mm3 (0.00-0.23); BASOPHILS PERCENT AUTO 1 % (0-2); EOSINOPHILS ABSOLUTE AUTO 0.84 K/mm3 (0.00-0.68); EOSINOPHILS PERCENT AUTO 15 % (0-6); Hematocrit 28.5 % (33.0-51.0); Hemoglobin 8.2 g/dL (11.5-16.0); IMMATURE GRAN ABSOLUTE AUTO 0.04 K/mm3 (0.00-0.10); IMMATURE GRAN PERCENT AUTO 1 % (0-1); LYMPHOCYTES PERCENT AUTO 25 % (21-46); MONOCYTES ABSOLUTE AUTO 0.65 K/mm3 (0.16-1.47); MONOCYTES PERCENT AUTO 12 % (4-13); Mean Corpuscular HGB 23.3 pg (26.0-34.0); Mean Corpuscular HGB Conc 28.8 g/dL (31.5-36.5); Mean Corpuscular Volume 81 fL (80-100); Mean Platelet Volume 9.4 fL (9.1-12.4); NEUTROPHILS ABSOLUTE AUTO 2.71 K/mm3 (1.96-9.15); NEUTROPHILS PERCENT AUTO 48 % (41-73); Platelet Count 334 K/mm3 (150-400); RDW Coefficient Variation 19.3 % (11.7-14.2); RDW Standard Deviation 56.3 fL (35.1-46.3); Red Blood Cell Count 3.52 M/mm3 (3.80-5.20); White Blood Cell Count 5.67 K/mm3 (4.00-11.30)
--- NOTE | 2018-11-30 05:56 | NUR ---
SUMMARY PT CONT TO TOLERATE FULL LIQ DIET.URINARY INCONTINENCE/URGENCY WAKING PT TONIGHT.
[2018-11-30 06:04] LABS: Anion Gap 9 mmol/L (6-16); Blood Urea Nitrogen 20 mg/dL (8-24); Bun/Creatinine Ratio 24.4 (12.0-20.0); CO2, Blood 23 mmol/L (21-32); Calcium, Blood 8.2 mg/dL (8.5-10.1); Chloride, Blood 111 mmol/L (98-108); Creatinine, Blood 0.82 mg/dL (0.40-1.00); Glomerular Filtration Rate >60 (60-); Glucose, Blood 137 mg/dL (70-99); Potassium, Blood 3.6 mmol/L (3.5-5.5); Sodium, Blood 143 mmol/L (136-145)
--- NOTE | 2018-11-30 09:37 | NUR ---
PT REPORTED NOT FEELING WELL STATED NOT HAVING PAIN, NAUSEA OR SOB BUT FELT LIKE IF SHE STOOD UP SHE "WOULD FALL OVER." RESTING W/EYES CLOSED AT THIS TIME. BREATHING E/U.
--- NOTE | 2018-11-30 09:51 | NUR ---
PT REPORTS FEELING BETTER NOW AFTER RESTING. AMBULATED TO RESTROOM AND BACK W/O DIFFICULTY.
[2018-11-30] MEDS ORDERED: SACC250C PO (13:22)
[2018-11-30] MEDS ORDERED: CEFD300 PO (13:23)
[2018-11-30] MEDS ORDERED: METR500 PO (13:23)
--- NOTE | 2018-11-30 13:31 | NUR ---
CALLED PRESCRIPTIONS TO [facility] PER ORDERS.
--- NOTE | 2018-11-30 13:44 | NUR ---
discharged REVIEWED DC PAPERWORK W/PT. VERBALIZED UNDERSTANDING. DC'D IV, CATHETER INTACT. CALLED PRESCRIPTIONS INTO [facility]. CALLED FOR ESCORT. SPOUSE AT BEDSIDE.
== END 2018-11-30 13:47 | disposition home or self-care (01) | DRG 378 ==
LOC: ER 13:12 → SURS 16:59
PROVIDERS: Family Medicine; Physician Assistant; ADMIT Hospitalist
DX: K57.01 Diverticulitis of small intestine with perforation and abscess with bleeding (principal); I50.32 Chronic diastolic (congestive) heart failure; N39.0 Urinary tract infection, site not specified; I11.0 Hypertensive heart disease with heart failure; K21.9 Gastro-esophageal reflux disease without esophagitis; E78.5 Hyperlipidemia, unspecified; K22.70 Barrett's esophagus without dysplasia; I25.10 Atherosclerotic heart disease of native coronary artery without angina pectoris; E11.59 Type 2 diabetes mellitus with other circulatory complications
CPT/HCPCS: 36415; 74177; 80048; 80053; 81001; 82947; 83735; 85025; 87077; 87086; 87186; 96365-59; 96375; 97161; 97530; 99285-25; J0696; J1650; J3010; J7131; Q9967

== ENCOUNTER → 2019-01-15 | Outpatient (CLI) | payer MEDICARE, OTHER ==
[~2019-01-15] MED LIST changes: +Norco 5-325 Ta1 EACH PO; +SACC250C PO
[2019-01-15 13:03] LABS: BASOPHILS ABSOLUTE AUTO 0.04 K/mm3 (0.00-0.23); BASOPHILS PERCENT AUTO 1 % (0-2); EOSINOPHILS ABSOLUTE AUTO 0.36 K/mm3 (0.00-0.68); EOSINOPHILS PERCENT AUTO 4 % (0-6); Hematocrit 29.6 % (33.0-51.0); Hemoglobin 8.4 g/dL (11.5-16.0); IMMATURE GRAN ABSOLUTE AUTO 0.02 K/mm3 (0.00-0.10); IMMATURE GRAN PERCENT AUTO 0 % (0-1); LYMPHOCYTES ABSOLUTE AUTO 1.68 K/mm3 (0.84-5.20); LYMPHOCYTES PERCENT AUTO 21 % (21-46); MONOCYTES ABSOLUTE AUTO 0.79 K/mm3 (0.16-1.47); MONOCYTES PERCENT AUTO 10 % (4-13); Mean Corpuscular HGB 21.8 pg (26.0-34.0); Mean Corpuscular HGB Conc 28.4 g/dL (31.5-36.5); Mean Corpuscular Volume 77 fL (80-100); Mean Platelet Volume 10.2 fL (9.1-12.4); NEUTROPHILS ABSOLUTE AUTO 5.31 K/mm3 (1.96-9.15); NEUTROPHILS PERCENT AUTO 65 % (41-73); Platelet Count 408 K/mm3 (150-400); RDW Coefficient Variation 19.9 % (11.7-14.2); Red Blood Cell Count 3.86 M/mm3 (3.80-5.20)
[2019-01-15 13:18] LABS: Alanine Aminotransfer (ALT/SGP 18 U/L (12-78); Albumin, Blood 3.5 g/dL (3.4-5.0); Albumin/Globulin Ratio 0.9 (0.8-1.8); Alk Phos 91 U/L (40-126); Anion Gap 12 mmol/L (6-16); Aspartate Aminotrans (AST/SGOT 21 U/L (12-37); Bilirubin, Total 0.2 mg/dL (0.1-1.0); Blood Urea Nitrogen 23 mg/dL (8-24); Bun/Creatinine Ratio 20.7 (12.0-20.0); CO2, Blood 23 mmol/L (21-32); CPK Creatine Kinase 52 U/L (26-192); Calcium, Blood 9.2 mg/dL (8.5-10.1); Chloride, Blood 104 mmol/L (98-108); Creatinine, Blood 1.11 mg/dL (0.40-1.00); Globulin, Blood 4.1 g/dL (2.2-4.0); Glomerular Filtration Rate 47 (60-); Glucose, Blood 90 mg/dL (70-99); Potassium, Blood 3.8 mmol/L (3.5-5.5); Sodium, Blood 139 mmol/L (136-145); Total Protein, Blood 7.6 g/dL (6.4-8.2); Troponin I <0.017 ng/mL (0.000-0.040)
[2019-01-15 16:02] LABS: Percent Saturation 4.4 % (15.0-50.0)
== END | disposition home or self-care (01) ==
LOC: LAB EV 12:57 → LAB SHORT 12:57
PROVIDERS: General Practice
DX: I20.8 Other forms of angina pectoris (principal); D64.9 Anemia, unspecified
CPT/HCPCS: 80053; 82550; 82728; 83540; 83550; 84484; 85025

== ENCOUNTER 2019-01-16 11:45 | Emergency (ER) | payer MEDICARE, OTHER ==
[~2019-01-16] VITALS: Ht 170.2 cm; Wt 60.3 kg
[~2019-01-16 11:45] MED LIST changes: -Norco 5-325 Ta1 EACH PO
[2019-01-16] MEDS ORDERED: Norco 5-325 Ta1 EACH PO (13:12)
== END 2019-01-16 13:49 | disposition home or self-care (01) ==
LOC: ER 11:45
DX: M75.32 Calcific tendinitis of left shoulder (principal); Z88.8 Allergy status to other drugs, medicaments and biological substances; Z79.899 Other long term (current) drug therapy
CPT/HCPCS: 99283; A9270-GY

== ENCOUNTER 2019-01-19 23:51 | Observation (INO) | payer MEDICARE, OTHER ==
[~2019-01-19] VITALS: Ht 137.2 cm; Wt 62.0 kg
[~2019-01-19 23:51] MED LIST changes: +Norco 5-325 Ta1 EACH PO
[2019-01-20 00:37] LABS: BASOPHILS ABSOLUTE AUTO 0.04 K/mm3 (0.00-0.23); BASOPHILS PERCENT AUTO 0 % (0-2); EOSINOPHILS ABSOLUTE AUTO 0.09 K/mm3 (0.00-0.68); EOSINOPHILS PERCENT AUTO 1 % (0-6); Hematocrit 27.9 % (33.0-51.0); Hemoglobin 7.9 g/dL (11.5-16.0); IMMATURE GRAN ABSOLUTE AUTO 0.05 K/mm3 (0.00-0.10); IMMATURE GRAN PERCENT AUTO 0 % (0-1); LYMPHOCYTES ABSOLUTE AUTO 0.93 K/mm3 (0.84-5.20); LYMPHOCYTES PERCENT AUTO 8 % (21-46); MONOCYTES ABSOLUTE AUTO 0.99 K/mm3 (0.16-1.47); MONOCYTES PERCENT AUTO 9 % (4-13); Mean Corpuscular HGB 22.1 pg (26.0-34.0); Mean Corpuscular HGB Conc 28.3 g/dL (31.5-36.5); Mean Corpuscular Volume 78 fL (80-100); Mean Platelet Volume 9.7 fL (9.1-12.4); NEUTROPHILS ABSOLUTE AUTO 9.12 K/mm3 (1.96-9.15); NEUTROPHILS PERCENT AUTO 81 % (41-73); Platelet Count 336 K/mm3 (150-400); RDW Coefficient Variation 19.2 % (11.7-14.2); RDW Standard Deviation 54.7 fL (35.1-46.3); Red Blood Cell Count 3.57 M/mm3 (3.80-5.20); White Blood Cell Count 11.22 K/mm3 (4.00-11.30)
[2019-01-20 00:57] LABS: Alanine Aminotransfer (ALT/SGP 16 U/L (12-78); Albumin, Blood 3.4 g/dL (3.4-5.0); Albumin/Globulin Ratio 0.9 (0.8-1.8); Alk Phos 99 U/L (50-136); Anion Gap 7 mmol/L (6-16); Aspartate Aminotrans (AST/SGOT 12 U/L (12-37); Bilirubin, Total 0.2 mg/dL (0.1-1.0); Blood Urea Nitrogen 25 mg/dL (8-24); Bun/Creatinine Ratio 29.2 (12.0-20.0); CO2, Blood 24 mmol/L (21-32); Calcium, Blood 8.5 mg/dL (8.5-10.1); Chloride, Blood 107 mmol/L (98-108); Creatinine, Blood 0.86 mg/dL (0.40-1.00); Globulin, Blood 3.9 g/dL (2.2-4.0); Glomerular Filtration Rate >60 (60-); Glucose, Blood 123 mg/dL (70-99); Potassium, Blood 4.5 mmol/L (3.5-5.5); Sodium, Blood 138 mmol/L (136-145); Total Protein, Blood 7.3 g/dL (6.4-8.2); Troponin I <0.015 ng/mL (0.000-0.040)
--- NOTE | 2019-01-20 05:59 | NUR ---
TRANSFER REPORT FROM Annalise JOHNS in ER on 78 year old PT with CAD and cardiac stent being admitted with chest pain and anemia. Chest pain was tx by PT at home with 2 nitro that resolved. PT has hx anemia and has transfuse 2 units PRBC order, 1st unit finishing up and PT tolearating per RN report. 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 Reported SOB on room ait. Await admission
--- NOTE | 2019-01-20 07:45 | NUR ---
pt co severe lt upper extremity pain sharp shooting. denies chest pain. nedicated with 2 norco 5/325 mg with helpful effect. finished 1st unit prbc and 2nd unit transfusing,. Spouse at bedside supportive. continue with admission ,..
[2019-01-20 11:31] LABS: Hematocrit 35.9 % (33.0-51.0)
[2019-01-20] MEDS ORDERED: OMEPRAZOLE20 MG PO (16:09)
[2019-01-20] MEDS ORDERED: NUTRISOURCE FI1 EACH PO (16:10)
[2019-01-20] MEDS ORDERED: Ferrous Sulfat325 M2 PO (16:10)
[2019-01-20] MEDS ORDERED: GAVILAX17 GM PO (16:10)
[2019-01-20] MEDS ORDERED: Norco 5-325 Ta1 EACH PO (16:12)
--- NOTE | 2019-01-20 16:31 | NUR ---
1630 PATIENT TO DISCHARGE. NURSE WENT OVER DISCHARGE PAPERS WITH PATIENT, NEW MEDS DISCUSSED. ALL MEDS FAXED INTO PHARMACY OF CHOICE. PATIENT AND FAMILY PACKED UP BELONGINGS. PATIENT ENCOURAGED TO FOLLOW UP WITH PCP. PATIENT TAKEN DOWN TO CAR IN BY AIDE.
== END 2019-01-20 16:32 | disposition home or self-care (01) ==
LOC: ER 23:51 → MEDS 23:52
PROVIDERS: Emergency Medicine; Hospitalist; ADMIT Hospitalist
DX: R07.89 Other chest pain (principal); R06.02 Shortness of breath; M25.512 Pain in left shoulder; I11.0 Hypertensive heart disease with heart failure; I50.32 Chronic diastolic (congestive) heart failure; E11.9 Type 2 diabetes mellitus without complications; I25.10 Atherosclerotic heart disease of native coronary artery without angina pectoris; D50.9 Iron deficiency anemia, unspecified; K21.9 Gastro-esophageal reflux disease without esophagitis; E78.5 Hyperlipidemia, unspecified; Z86.73 Personal history of transient ischemic attack (TIA), and cerebral infarction without residual deficits; Z88.8 Allergy status to other drugs, medicaments and biological substances; Z79.899 Other long term (current) drug therapy; Z79.84 Long term (current) use of oral hypoglycemic drugs
CPT/HCPCS: 36415; 36430; 71046; 80053; 84484; 85014; 85018; 85025; 86850; 86900; 86901; 86923; 93005; 93010; 96374; 99285-25; A9270-GY; J1650; J3010; J7050; P9016

== ENCOUNTER 2019-02-27 15:09 | Emergency (ER) | payer MEDICARE, OTHER ==
[~2019-02-27] VITALS: Ht 137.2 cm; Wt 59.0 kg
[~2019-02-27 15:09] MED LIST changes: +Ferrous Sulfat325 M2 PO; +GAVILAX17 GM PO; +NUTRISOURCE FI1 EACH PO; +OMEPRAZOLE20 MG PO
[2019-02-27 15:54] LABS: BASOPHILS ABSOLUTE AUTO 0.02 K/mm3 (0.00-0.23); BASOPHILS PERCENT AUTO 0 % (0-2); EOSINOPHILS ABSOLUTE AUTO 0.12 K/mm3 (0.00-0.68); EOSINOPHILS PERCENT AUTO 2 % (0-6); Hematocrit 41.5 % (33.0-51.0); Hemoglobin 12.5 g/dL (11.5-16.0); IMMATURE GRAN ABSOLUTE AUTO 0.03 K/mm3 (0.00-0.10); IMMATURE GRAN PERCENT AUTO 0 % (0-1); LYMPHOCYTES ABSOLUTE AUTO 1.35 K/mm3 (0.84-5.20); LYMPHOCYTES PERCENT AUTO 17 % (21-46); MONOCYTES ABSOLUTE AUTO 0.74 K/mm3 (0.16-1.47); MONOCYTES PERCENT AUTO 10 % (4-13); Mean Corpuscular HGB 26.3 pg (26.0-34.0); Mean Corpuscular HGB Conc 30.1 g/dL (31.5-36.5); Mean Corpuscular Volume 87 fL (80-100); Mean Platelet Volume 9.8 fL (9.1-12.4); NEUTROPHILS ABSOLUTE AUTO 5.54 K/mm3 (1.96-9.15); NEUTROPHILS PERCENT AUTO 71 % (41-73); Platelet Count 279 K/mm3 (150-400); RDW Coefficient Variation 24.1 % (11.7-14.2); RDW Standard Deviation 76.2 fL (35.1-46.3); Red Blood Cell Count 4.76 M/mm3 (3.80-5.20)
[2019-02-27 16:01] LABS: Source, Urine Clean Catch
[2019-02-27 16:04] LABS: Bilirubin, Urine Neg (Neg); Blood, Urine 4+ (Neg); Glucose Qualitative, Urine Neg (Neg); Ketones, Urine Neg (Neg); Leukocyte Esterase, Urine 3+ (Neg); Nitrite, Urine Neg (Neg); Protein, Urine 2+ (Neg); Urobilinogen, Urine NORM (Normal)
[2019-02-27] MEDS ORDERED: ELIQUIS2.5 MG PO (16:12)
[2019-02-27 16:13] LABS: Appearance, Urine Cloudy (Clear); Color, Urine Yellow (P-Yellow)
[2019-02-27 16:15] LABS: Bacteria Many /hpf; Squamous Epithelial Cells Few /hpf (Few); White Blood Cells, Urine TNTC /hpf (0-5)
[2019-02-27 16:16] LABS: Yeast/Fungi Urine Few /hpf
[2019-02-27 16:27] LABS: Alanine Aminotransfer (ALT/SGP 27 U/L (12-78); Albumin, Blood 3.2 g/dL (3.4-5.0); Albumin/Globulin Ratio 0.7 (0.8-1.8); Alk Phos 97 U/L (50-136); Anion Gap 5 mmol/L (6-16); Aspartate Aminotrans (AST/SGOT 33 U/L (12-37); Bilirubin, Total 0.3 mg/dL (0.1-1.0); Blood Urea Nitrogen 28 mg/dL (8-24); Bun/Creatinine Ratio 33.4 (12.0-20.0); CO2, Blood 28 mmol/L (21-32); Calcium, Blood 9.5 mg/dL (8.5-10.1); Chloride, Blood 105 mmol/L (98-108); Creatinine, Blood 0.84 mg/dL (0.40-1.00); Globulin, Blood 4.5 g/dL (2.2-4.0); Glomerular Filtration Rate >60 (60-); Glucose, Blood 127 mg/dL (70-99); Potassium, Blood 4.4 mmol/L (3.5-5.5); Sodium, Blood 138 mmol/L (136-145); Total Protein, Blood 7.7 g/dL (6.4-8.2)
[2019-02-27] MEDS ORDERED: CEPH500 PO (17:24)
== END 2019-02-27 18:35 | disposition home or self-care (01) ==
LOC: ER 15:09
PROVIDERS: Physician Assistant
DX: N39.0 Urinary tract infection, site not specified (principal); E86.0 Dehydration; Z88.8 Allergy status to other drugs, medicaments and biological substances; Z79.899 Other long term (current) drug therapy; E11.9 Type 2 diabetes mellitus without complications
CPT/HCPCS: 36415; 80053; 81001; 85025; 87077; 87086; 87186; 93005; 93010; 96365; 99284-25; J0696; J7030

== ENCOUNTER 2019-03-23 21:20 | Inpatient (IN) | payer MEDICARE, OTHER ==
[~2019-03-23] VITALS: Ht 137.2 cm; Wt 59.0 kg
[~2019-03-23 21:20] MED LIST changes: +ELIQUIS2.5 MG PO
[2019-03-23 21:59] LABS: BASOPHILS ABSOLUTE AUTO 0.04 K/mm3 (0.00-0.23); BASOPHILS PERCENT AUTO 1 % (0-2); EOSINOPHILS ABSOLUTE AUTO 0.08 K/mm3 (0.00-0.68); EOSINOPHILS PERCENT AUTO 1 % (0-6); Hematocrit 40.5 % (33.0-51.0); Hemoglobin 12.5 g/dL (11.5-16.0); IMMATURE GRAN ABSOLUTE AUTO 0.05 K/mm3 (0.00-0.10); IMMATURE GRAN PERCENT AUTO 1 % (0-1); LYMPHOCYTES ABSOLUTE AUTO 1.45 K/mm3 (0.84-5.20); LYMPHOCYTES PERCENT AUTO 18 % (21-46); MONOCYTES ABSOLUTE AUTO 0.65 K/mm3 (0.16-1.47); MONOCYTES PERCENT AUTO 8 % (4-13); Mean Corpuscular HGB 26.9 pg (26.0-34.0); Mean Corpuscular HGB Conc 30.9 g/dL (31.5-36.5); Mean Corpuscular Volume 87 fL (80-100); Mean Platelet Volume 9.3 fL (9.1-12.4); NEUTROPHILS ABSOLUTE AUTO 5.96 K/mm3 (1.96-9.15); NEUTROPHILS PERCENT AUTO 72 % (41-73); Platelet Count 349 K/mm3 (150-400); RDW Coefficient Variation 23.4 % (11.7-14.2); RDW Standard Deviation 72.4 fL (35.1-46.3); Red Blood Cell Count 4.64 M/mm3 (3.80-5.20); White Blood Cell Count 8.23 K/mm3 (4.00-11.30)
[2019-03-23 22:18] LABS: Alanine Aminotransfer (ALT/SGP 16 U/L (12-78); Albumin, Blood 3.1 g/dL (3.4-5.0); Albumin/Globulin Ratio 0.6 (0.8-1.8); Alk Phos 92 U/L (50-136); Anion Gap 7 mmol/L (6-16); Aspartate Aminotrans (AST/SGOT 19 U/L (12-37); Bilirubin, Total 0.3 mg/dL (0.1-1.0); Blood Urea Nitrogen 28 mg/dL (8-24); Bun/Creatinine Ratio 33.3 (12.0-20.0); CO2, Blood 30 mmol/L (21-32); Calcium, Blood 9.4 mg/dL (8.5-10.1); Chloride, Blood 102 mmol/L (98-108); Creatinine, Blood 0.84 mg/dL (0.40-1.00); Globulin, Blood 4.8 g/dL (2.2-4.0); Glomerular Filtration Rate >60 (60-); Glucose, Blood 120 mg/dL (70-99); Potassium, Blood 4.2 mmol/L (3.5-5.5); Sodium, Blood 139 mmol/L (136-145); Total Protein, Blood 7.9 g/dL (6.4-8.2)
[2019-03-23 23:58] LABS: Source, Urine Clean Catch
[2019-03-24 00:04] LABS: Appearance, Urine Cloudy (Clear); Bilirubin, Urine Neg (Neg); Blood, Urine 5+ (Neg); Glucose Qualitative, Urine Neg (Neg); Ketones, Urine 2+ (Neg); Leukocyte Esterase, Urine 3+ (Neg); Nitrite, Urine Neg (Neg); Protein, Urine 1+ (Neg); Urobilinogen, Urine NORM (Normal)
[2019-03-24 00:13] LABS: Color, Urine Yellow (P-Yellow)
[2019-03-24 00:20] LABS: Bacteria Many /hpf; Red Blood Cells, Urine 0-2 /hpf (0-2); Squamous Epithelial Cells Not Seen /hpf (Few)
[2019-03-24 05:43] LABS: Hematocrit 35.6 % (33.0-51.0); Mean Corpuscular HGB 27.1 pg (26.0-34.0); Mean Corpuscular HGB Conc 30.9 g/dL (31.5-36.5); Mean Corpuscular Volume 88 fL (80-100); Mean Platelet Volume 9.5 fL (9.1-12.4); Platelet Count 287 K/mm3 (150-400); RDW Coefficient Variation 23.7 % (11.7-14.2); RDW Standard Deviation 74.4 fL (35.1-46.3); Red Blood Cell Count 4.06 M/mm3 (3.80-5.20); White Blood Cell Count 15.97 K/mm3 (4.00-11.30)
[2019-03-24 06:04] LABS: Albumin, Blood 2.5 g/dL (3.4-5.0); Albumin/Globulin Ratio 0.6 (0.8-1.8); Bilirubin, Total 0.7 mg/dL (0.1-1.0); Bun/Creatinine Ratio 24.3 (12.0-20.0); Calcium, Blood 8.5 mg/dL (8.5-10.1); Creatinine, Blood 0.99 mg/dL (0.40-1.00); Globulin, Blood 4.2 g/dL (2.2-4.0); Potassium, Blood 3.9 mmol/L (3.5-5.5); Total Protein, Blood 6.7 g/dL (6.4-8.2)
--- NOTE | 2019-03-24 07:15 | NUR ---
SHIFT SUMMARY PT WAS A NEW ADMIT DURING THE NIGHT, ARRIVING ON THE FLOOR AT 0505. SHE WAS ADMITTED FOR DIVERTICULITIS. PT IS A&O X 3, AND A 1-2PA IN THE ROOM. PT DENIED ANY COMPLAINTS OF PAIN, NAUSEA OR SOB SINCE ADMISSION. BP WAS LOW IN THE 90S SYSTOLICALLY, THOUGH PER THE PT THAT IS IN HER NORMAL RANGE. HER HEART RATE WAS ALSO ELEVATED IN THE 100-110S. ALL OTHER VITALS STABLE. NO OTHER ACUTE CHANGES NOTED. REPORT GIVEN TO ONCOMING RN.
--- NOTE | 2019-03-24 13:25 | NUR ---
THE SETUP TECHNICIAN SAYS PAT'S STOOL IS LESS LOOSE NOW BUT STILL BLACK AND FOUL SMELLING. HAS ROUNDED. IVF'S CONTINUE. CL DIET HAS STARTED. NO NAUSEA. AT BEDSIDE AND NOW ANOTHER COUPLE HAS ARRIVED.
[2019-03-24] MEDS ORDERED: CEPH500 PO (15:15)
[2019-03-24] MEDS ORDERED: GLIM2 PO (15:15)
[2019-03-24] MEDS ORDERED: ASCO500 PO (15:16)
[2019-03-24] MEDS ORDERED: Nitroglycerin0.4 MG SL (15:18)
[2019-03-24] MEDS ORDERED: Vitamin D2000 UNIT PO (15:19)
--- NOTE | 2019-03-24 18:26 | NUR ---
TELE NSR WITH A FIRST DEGREE BLOCK. SHE HAS HAD PAIN TODAY IN HER L HIP AND R SHOULDER. THE DISCOMFORT SHE HAS IN HER LUQ IS INSIGNIFICANT IN COMPARISON. KPAD TO L HIP. NORCO GIVEN X1. CL DIET STARTED. NO C/O ABD CRAMPS OR NAUSEA. SHE HAS HAD LOOSE TO SLIGHTLY FORMED BLACK FOUL STOOLS. SHE SAYS IT LOOKS THE SAME AT HOME BECAUSE OF HER DAILY IRON PILLS. HER IVF'S CONTINUE. NO SIGNIFICANT FEVER TODAY. SHE NEEDS 1 [place] [facility] [place] MOST OF THE DAY BUT MISSED THE DOCTOR. HE HAS GONE HOME FOR THE NIGHT.
[2019-03-25 05:27] LABS: BASOPHILS ABSOLUTE AUTO 0.05 K/mm3 (0.00-0.23); BASOPHILS PERCENT AUTO 1 % (0-2); EOSINOPHILS ABSOLUTE AUTO 0.05 K/mm3 (0.00-0.68); EOSINOPHILS PERCENT AUTO 1 % (0-6); Hematocrit 33.8 % (33.0-51.0); Hemoglobin 10.3 g/dL (11.5-16.0); IMMATURE GRAN ABSOLUTE AUTO 0.02 K/mm3 (0.00-0.10); IMMATURE GRAN PERCENT AUTO 0 % (0-1); LYMPHOCYTES ABSOLUTE AUTO 1.04 K/mm3 (0.84-5.20); LYMPHOCYTES PERCENT AUTO 13 % (21-46); MONOCYTES ABSOLUTE AUTO 0.64 K/mm3 (0.16-1.47); MONOCYTES PERCENT AUTO 8 % (4-13); Mean Corpuscular HGB 27.1 pg (26.0-34.0); Mean Corpuscular HGB Conc 30.5 g/dL (31.5-36.5); Mean Corpuscular Volume 89 fL (80-100); Mean Platelet Volume 9.6 fL (9.1-12.4); NEUTROPHILS ABSOLUTE AUTO 5.96 K/mm3 (1.96-9.15); NEUTROPHILS PERCENT AUTO 77 % (41-73); Platelet Count 239 K/mm3 (150-400); RDW Coefficient Variation 24.3 % (11.7-14.2); RDW Standard Deviation 76.3 fL (35.1-46.3); White Blood Cell Count 7.76 K/mm3 (4.00-11.30)
[2019-03-25 05:52] LABS: Albumin, Blood 2.2 g/dL (3.4-5.0); Albumin/Globulin Ratio 0.6 (0.8-1.8); Bilirubin, Total 0.4 mg/dL (0.1-1.0); Bun/Creatinine Ratio 23.3 (12.0-20.0); Calcium, Blood 7.9 mg/dL (8.5-10.1); Creatinine, Blood 1.03 mg/dL (0.40-1.00); Total Protein, Blood 6.2 g/dL (6.4-8.2)
--- NOTE | 2019-03-25 06:36 | NUR ---
SHIFT SUMMARY PT IS AN 79 Y/O FEMALE, ADMITTED FOR ACUTE DIVERTICULITIS. SHE IS A&O X 3, THOUGH SLIGHTLY MCGRATH, AND A 1PA UP TO THE [facility] [place]. SHE WAS MEDICATED FOR HIP AND SHOULDER PAIN, THOUGH SHE DENIED ANY ABD PAIN OR NAUSEA. PT WAS ON CONTINUOUS FLUIDS, NS @ 75 ML/HR. PT'S AM BP WAS LOW AT 96/61, ALL OTHER VITALS STABLE. NO OTHER ACUTE CHANGES IN PT CONDITION NOTED. WILL CONTINUE TO MONITOR AND TREAT PER EMAR UNTIL HAND OFF TO DAY SHIFT.
--- NOTE | 2019-03-25 11:27 | NUR ---
PT STATES SHE FEELS CONSTIPATED COLACE AVAILABLE PRN-CONSTIPATION IN EMAR. ADMINISTERED COLACE AT THIS TIME. MIRALAX GIVEN THIS MORNING, BUT PT STATES MIRALAX HAS NEVER REALLY BEEN EFFECTIVE FOR HER. WILL CONTINUE TO MONITOR.
--- NOTE | 2019-03-25 16:17 | NUR ---
Patient is lying in bed and alert with , Ralph, bedside. Patient immediately tells me that she is frustrated by having to return to the hospital for the same issue and hopes that the doctors will do something different this visit. I conduct a life review, provide companionship, pastoral general counselor and prayer. Patient and Ralph respond well and show signs of reduced frustration. They both voice appreciation for the visit and the prayer.
--- NOTE | 2019-03-25 17:20 | NUR ---
SHIFT SUMMARY 79 YR OLD FEMALE ADMITTED FOR ACUTE DIVERTICULITIS. PT STATES INCREASED ABDOMINAL PRESSURE. DR INFORMED AND ARRIVED TO ASSESS. DR SAMPSON CALLED TODAY FOR CONSULT. PT HAS NOT REQUIRED INSULIN COVERAGE TODAY. PT IS ON A CLEAR LIQUID DIET BUT HAS CONSUMED VERY LITTLE DUE TO HER DISCOMFORT.
--- NOTE | 2019-03-26 05:03 | NUR ---
NOC SHIFT SUMMARY 79 YEAR OLD FEMALE ADMITTED FOR ACUTE DIVERTICULITIS. PLEASANT AND COOPERATIVE WITH CARE. TREATED ONCE THIS SHIFT FOR SHOULDER AND BACK PAIN SHE ATTRIBUTES TO HAVING "LAYED IN BED TOO LONG". NO OTHER COMPLAINTS. VSS. APPEARS TO BE SLEEPING AND IN NO ACUTE DISTRESS AT THIS TIME. TELE IS SR WITH 1ST DEGREE BLOCK IN THE 80'S ON LAST TELE CHECK. WILL CONTINUE TO MONITOR.
[2019-03-26 05:14] LABS: BASOPHILS ABSOLUTE AUTO 0.03 K/mm3 (0.00-0.23); BASOPHILS PERCENT AUTO 1 % (0-2); EOSINOPHILS ABSOLUTE AUTO 0.08 K/mm3 (0.00-0.68); EOSINOPHILS PERCENT AUTO 2 % (0-6); Hematocrit 30.6 % (33.0-51.0); Hemoglobin 9.4 g/dL (11.5-16.0); IMMATURE GRAN ABSOLUTE AUTO 0.04 K/mm3 (0.00-0.10); IMMATURE GRAN PERCENT AUTO 1 % (0-1); LYMPHOCYTES ABSOLUTE AUTO 1.11 K/mm3 (0.84-5.20); LYMPHOCYTES PERCENT AUTO 20 % (21-46); MONOCYTES ABSOLUTE AUTO 0.69 K/mm3 (0.16-1.47); MONOCYTES PERCENT AUTO 13 % (4-13); Mean Corpuscular HGB 26.7 pg (26.0-34.0); Mean Corpuscular HGB Conc 30.7 g/dL (31.5-36.5); Mean Corpuscular Volume 87 fL (80-100); Mean Platelet Volume 10.3 fL (9.1-12.4); NEUTROPHILS ABSOLUTE AUTO 3.56 K/mm3 (1.96-9.15); NEUTROPHILS PERCENT AUTO 65 % (41-73); Platelet Count 216 K/mm3 (150-400); RDW Standard Deviation 73.7 fL (35.1-46.3); Red Blood Cell Count 3.52 M/mm3 (3.80-5.20); White Blood Cell Count 5.51 K/mm3 (4.00-11.30)
[2019-03-26 05:47] LABS: Alanine Aminotransfer (ALT/SGP 19 U/L (12-78); Albumin/Globulin Ratio 0.6 (0.8-1.8); Alk Phos 77 U/L (50-136); Anion Gap 7 mmol/L (6-16); Aspartate Aminotrans (AST/SGOT 49 U/L (12-37); Bilirubin, Total 0.6 mg/dL (0.1-1.0); Blood Urea Nitrogen 19 mg/dL (8-24); Bun/Creatinine Ratio 20.3 (12.0-20.0); CO2, Blood 23 mmol/L (21-32); Calcium, Blood 7.9 mg/dL (8.5-10.1); Chloride, Blood 108 mmol/L (98-108); Creatinine, Blood 0.94 mg/dL (0.40-1.00); Globulin, Blood 3.6 g/dL (2.2-4.0); Glomerular Filtration Rate >60 (60-); Glucose, Blood 109 mg/dL (70-99); Potassium, Blood 3.4 mmol/L (3.5-5.5); Sodium, Blood 138 mmol/L (136-145); Total Protein, Blood 5.6 g/dL (6.4-8.2)
--- NOTE | 2019-03-26 15:48 | NUR ---
SHIFT SUMMARY PT TOLERATING FULL LIQUID DIET WELL. NO COMPLAINTS OF DISCOMFORT. PT DID HAVE A LOOSE BOWEL MOVEMENT TODAY. CONTINUING TO PROVIDE IV ANTIBIOTICS ORDERED. PT ENCOURAGED TO AMBULATE. SHE DOES HAVE CHRONIC PAIN IN LEFT HIP AND RT SHOULDER.
[2019-03-27 06:06] LABS: BASOPHILS ABSOLUTE AUTO 0.02 K/mm3 (0.00-0.23); BASOPHILS PERCENT AUTO 0 % (0-2); EOSINOPHILS ABSOLUTE AUTO 0.12 K/mm3 (0.00-0.68); EOSINOPHILS PERCENT AUTO 3 % (0-6); Hematocrit 32.6 % (33.0-51.0); IMMATURE GRAN ABSOLUTE AUTO 0.04 K/mm3 (0.00-0.10); IMMATURE GRAN PERCENT AUTO 1 % (0-1); LYMPHOCYTES ABSOLUTE AUTO 1.23 K/mm3 (0.84-5.20); LYMPHOCYTES PERCENT AUTO 26 % (21-46); MONOCYTES ABSOLUTE AUTO 0.52 K/mm3 (0.16-1.47); MONOCYTES PERCENT AUTO 11 % (4-13); Mean Corpuscular HGB 27.4 pg (26.0-34.0); Mean Corpuscular HGB Conc 30.7 g/dL (31.5-36.5); Mean Corpuscular Volume 89 fL (80-100); Mean Platelet Volume 10.4 fL (9.1-12.4); NEUTROPHILS ABSOLUTE AUTO 2.89 K/mm3 (1.96-9.15); NEUTROPHILS PERCENT AUTO 60 % (41-73); Platelet Count 236 K/mm3 (150-400); RDW Coefficient Variation 23.8 % (11.7-14.2); RDW Standard Deviation 75.2 fL (35.1-46.3); Red Blood Cell Count 3.65 M/mm3 (3.80-5.20); White Blood Cell Count 4.82 K/mm3 (4.00-11.30)
[2019-03-27 06:36] LABS: Alanine Aminotransfer (ALT/SGP 16 U/L (12-78); Albumin, Blood 2.2 g/dL (3.4-5.0); Albumin/Globulin Ratio 0.6 (0.8-1.8); Alk Phos 83 U/L (50-136); Anion Gap 9 mmol/L (6-16); Aspartate Aminotrans (AST/SGOT 25 U/L (12-37); Bilirubin, Total 0.4 mg/dL (0.1-1.0); Blood Urea Nitrogen 15 mg/dL (8-24); Bun/Creatinine Ratio 17.6 (12.0-20.0); CO2, Blood 23 mmol/L (21-32); Calcium, Blood 8.3 mg/dL (8.5-10.1); Chloride, Blood 108 mmol/L (98-108); Creatinine, Blood 0.85 mg/dL (0.40-1.00); Globulin, Blood 3.9 g/dL (2.2-4.0); Glomerular Filtration Rate >60 (60-); Glucose, Blood 100 mg/dL (70-99); Phosphorus, Blood 2.6 mg/dL (2.5-4.9); Potassium, Blood 3.7 mmol/L (3.5-5.5); Sodium, Blood 140 mmol/L (136-145); Total Protein, Blood 6.1 g/dL (6.4-8.2)
--- NOTE | 2019-03-27 17:59 | NUR ---
SHIFT SUMMARY NO ACUTE CONCERNS WITH THE PATIENT. SHE HAS MOVED AROUND INDEPENDENTLY WITH THE WALKER AND ONE FAMILY MEMBER. SHE IS ALERT AND ORIENTED. DENIES PAIN OR DISCOMFORT TODAY. SHE DOES HAVE A LACK OF AN APPETITE RELATED TO HER DIET BUT SHE UNDERSTANDS THE REASONING BEHIND THIS DIET CURRENTLY.
[2019-03-28 05:26] LABS: BASOPHILS ABSOLUTE AUTO 0.04 K/mm3 (0.00-0.23); BASOPHILS PERCENT AUTO 1 % (0-2); EOSINOPHILS ABSOLUTE AUTO 0.16 K/mm3 (0.00-0.68); EOSINOPHILS PERCENT AUTO 3 % (0-6); Hemoglobin 9.6 g/dL (11.5-16.0); IMMATURE GRAN ABSOLUTE AUTO 0.05 K/mm3 (0.00-0.10); IMMATURE GRAN PERCENT AUTO 1 % (0-1); LYMPHOCYTES ABSOLUTE AUTO 1.27 K/mm3 (0.84-5.20); LYMPHOCYTES PERCENT AUTO 27 % (21-46); MONOCYTES ABSOLUTE AUTO 0.54 K/mm3 (0.16-1.47); MONOCYTES PERCENT AUTO 12 % (4-13); Mean Corpuscular HGB 27.1 pg (26.0-34.0); Mean Corpuscular Volume 90 fL (80-100); Mean Platelet Volume 10.2 fL (9.1-12.4); NEUTROPHILS ABSOLUTE AUTO 2.63 K/mm3 (1.96-9.15); NEUTROPHILS PERCENT AUTO 56 % (41-73); Platelet Count 269 K/mm3 (150-400); RDW Coefficient Variation 23.8 % (11.7-14.2); RDW Standard Deviation 75.7 fL (35.1-46.3); Red Blood Cell Count 3.54 M/mm3 (3.80-5.20); White Blood Cell Count 4.69 K/mm3 (4.00-11.30)
[2019-03-28 05:44] LABS: Albumin, Blood 2.1 g/dL (3.4-5.0); Anion Gap 9 mmol/L (6-16); Blood Urea Nitrogen 10 mg/dL (8-24); Bun/Creatinine Ratio 10.5 (12.0-20.0); CO2, Blood 24 mmol/L (21-32); Calcium, Blood 8.6 mg/dL (8.5-10.1); Chloride, Blood 109 mmol/L (98-108); Creatinine, Blood 0.95 mg/dL (0.40-1.00); Glomerular Filtration Rate 60 (60-); Glucose, Blood 104 mg/dL (70-99); Phosphorus, Blood 3.1 mg/dL (2.5-4.9); Potassium, Blood 3.6 mmol/L (3.5-5.5); Sodium, Blood 142 mmol/L (136-145)
--- NOTE | 2019-03-28 07:42 | NUR ---
NOC SHIFT SUMMARY PT IS PLEASANT AND COOPERATIVE WITH CARE. VSS. PAIN TREATED PER EMAR. SHE DID SLEEP MOST OF NIGHT. NO ACUTE CHANGES NOTED THIS SHIFT. REPORT TO ONCOMING RN.
--- NOTE | 2019-03-28 16:38 | NUR ---
SUMMARY PT IS A/O X4, PLEASANT AFFECT. UP TO CAHIR & AMBULATE IN CARRILLO SBA. GAIT STEADY. DX DIVERTICULITIS w PERF. SHE WAS ON [place] DIET THIS AM, DR FERGUSON IN TO [place], PT STATE SHE WOULD LIKE TO ADV DIET, NOABD PAIN. SOFT FOOD ORDERED FOR LUNCH SHE TOOK CAUTIOUSLY, SM AMTS. ENSURE PROVIDED/REQUEST. THIS AFTERNOON SHE STATE ABDOMINAL PAIN INCREASE SOMEWHAT, PRN NORCO GIVEN FOR CONTROL/RELIEF. VSS. IV ANTIBX CONTINUE.
--- NOTE | 2019-03-28 20:18 | NUR ---
Assumed care of patient. Pataient sitting up in chair. Ejtient AO4, reports minimal abd pain at this time. #20 LW SL c/d/i; Patient calls appropriatly and can make her needs known. call hdz within reach.
[2019-03-29 05:31] LABS: BASOPHILS ABSOLUTE AUTO 0.05 K/mm3 (0.00-0.23); BASOPHILS PERCENT AUTO 1 % (0-2); EOSINOPHILS ABSOLUTE AUTO 0.18 K/mm3 (0.00-0.68); EOSINOPHILS PERCENT AUTO 4 % (0-6); Hematocrit 31.3 % (33.0-51.0); Hemoglobin 9.6 g/dL (11.5-16.0); IMMATURE GRAN ABSOLUTE AUTO 0.09 K/mm3 (0.00-0.10); IMMATURE GRAN PERCENT AUTO 2 % (0-1); LYMPHOCYTES ABSOLUTE AUTO 1.49 K/mm3 (0.84-5.20); LYMPHOCYTES PERCENT AUTO 31 % (21-46); MONOCYTES ABSOLUTE AUTO 0.58 K/mm3 (0.16-1.47); MONOCYTES PERCENT AUTO 12 % (4-13); Mean Corpuscular HGB 27.1 pg (26.0-34.0); Mean Corpuscular HGB Conc 30.7 g/dL (31.5-36.5); Mean Corpuscular Volume 88 fL (80-100); NEUTROPHILS ABSOLUTE AUTO 2.48 K/mm3 (1.96-9.15); NEUTROPHILS PERCENT AUTO 51 % (41-73); Platelet Count 261 K/mm3 (150-400); RDW Standard Deviation 75.6 fL (35.1-46.3); Red Blood Cell Count 3.54 M/mm3 (3.80-5.20); White Blood Cell Count 4.87 K/mm3 (4.00-11.30)
--- NOTE | 2019-03-29 11:45 | NUR ---
Patient is lying in bed and alert with Ralph, bedside. Patient immediately shares about her frustrations about not knowing her plan of care, the constant retation of doctors and not know the results of her bloodwork in a timely manner. I listen empathically, normalize patient's experience and tell patient that I will follow up with her nurse to maybe get some answers. I then speak with patient's RN, Sg who tells me that patient has been given the information about her concerns, the prior day, but says that he will gladly speak with patient again and explain plan of care, the doctors scheduling situation and give current blood work numbers. RN Sg went into patient's room before I left the hallway. I will continue to remain available to patient and family.
--- NOTE | 2019-03-29 19:46 | NUR ---
SUMMARY PT IS A/O X4, GENERALLY PLEASANT HOWEVER THIS AM WHILE PASTORAL CARE IN ROOM SHE STATE DISATISFACTION R/T NOT HAVING THE SAME DR EACH DAY & UNCERTAINTY OF PLAN. DR WORTHINGTON NOTIFIED, PROMPTLYLY WENT TO SEE PT/ TO ADDRESS CONCERNS, REASSURE & REVIEW PLAN FOR IV ANTIBX & OUTPT SURG. AFTER PT/ STATE SATISFACTION/APPRECIATION. IV ANTIBX CONTINUE FOR NOW. SHE HAS BEEN TOLERATING DIET CAUTIOUSLY. STATE "GASY", DR PETER BENAVIDES THIS AFTERNOON. SHE HAS BEEN HAVING SOFT BM'S. R SHOULDER & L HIP CAUSE HER PAIN/DISCOMFORT, SHE STATE ADEQUATE RELIEF FROM HYDROCODONE, STATE HER DAUGHTER WILL COME IN TONITE TO MASSAGE HER SHOULDER. SHE IS UP SBA. VSS, AFEBRILE.
--- NOTE | 2019-03-30 04:30 | NUR ---
SHIFT SUMMARY PT HAD A BM THIS SHIFT, BUT REPORTS BLOATING DESPITE THIS. SHE DENIES ABD PAIN THIS SHIFT. CHRONIC PAIN IN RIGHT SHOULDER AND LEFT HIP RELIVED WITH HYDROCODONE. SHE AMBULATES WELL WIH 1 PA USING THE FWW. IV ABX PER ORDERS. PT A/OX4, PLESANT WITH CARE. ASSESSMENT UNCHANGED. VITALS STABLE. WILL CONTINUE TO MONITOR AND REPORT TO ONCOMING RN.
[2019-03-30 04:59] LABS: BASOPHILS ABSOLUTE AUTO 0.03 K/mm3 (0.00-0.23); BASOPHILS PERCENT AUTO 1 % (0-2); EOSINOPHILS ABSOLUTE AUTO 0.13 K/mm3 (0.00-0.68); EOSINOPHILS PERCENT AUTO 2 % (0-6); Hematocrit 32.3 % (33.0-51.0); Hemoglobin 9.7 g/dL (11.5-16.0); IMMATURE GRAN ABSOLUTE AUTO 0.16 K/mm3 (0.00-0.10); IMMATURE GRAN PERCENT AUTO 3 % (0-1); LYMPHOCYTES ABSOLUTE AUTO 1.36 K/mm3 (0.84-5.20); LYMPHOCYTES PERCENT AUTO 22 % (21-46); MONOCYTES ABSOLUTE AUTO 0.57 K/mm3 (0.16-1.47); MONOCYTES PERCENT AUTO 9 % (4-13); Mean Corpuscular HGB 27.6 pg (26.0-34.0); NEUTROPHILS ABSOLUTE AUTO 3.97 K/mm3 (1.96-9.15); NEUTROPHILS PERCENT AUTO 64 % (41-73); Platelet Count 281 K/mm3 (150-400); RDW Coefficient Variation 24.1 % (11.7-14.2); RDW Standard Deviation 78.2 fL (35.1-46.3); Red Blood Cell Count 3.52 M/mm3 (3.80-5.20); White Blood Cell Count 6.22 K/mm3 (4.00-11.30)
[2019-03-30 05:07] LABS: Mean Corpuscular Volume 92 fL (80-100)
[2019-03-30 05:17] LABS: Albumin, Blood 2.1 g/dL (3.4-5.0); Anion Gap 6 mmol/L (6-16); Blood Urea Nitrogen 10 mg/dL (8-24); Bun/Creatinine Ratio 9.8 (12.0-20.0); CO2, Blood 25 mmol/L (21-32); Calcium, Blood 8.2 mg/dL (8.5-10.1); Chloride, Blood 111 mmol/L (98-108); Creatinine, Blood 1.02 mg/dL (0.40-1.00); Glomerular Filtration Rate 55 (60-); Glucose, Blood 102 mg/dL (70-99); Phosphorus, Blood 3.6 mg/dL (2.5-4.9); Potassium, Blood 3.8 mmol/L (3.5-5.5); Sodium, Blood 142 mmol/L (136-145)
--- NOTE | 2019-03-30 18:19 | NUR ---
SHIFT SUMMARY OX3. STANDBY ASSIST TO BATHROOM. EATING AND DRINKING WELL. MEDICATED FOR "UPSET STOMACH" AND ABDOMINAL PAIN PER MAR. PLEASANT, CALM. TO FOLLOW UP WITH GI OUTPATIENT FOR COMPLICATIONS OF DIVERTICULITIS.
--- NOTE | 2019-03-31 06:25 | NUR ---
SHIFT SUMMARY PT A/O SBA TO BA. C/O PAIN X1 AND MEDICATED PER EMAR. SHE WAS ABLE TO SLEEP T/O NIGHT. CALL LIGHT IN REACH.
[2019-03-31] MEDS ORDERED: METR500 PO (10:21)
--- NOTE | 2019-03-31 11:50 | NUR ---
DISCHARGE NOTE PT DISCHARGED VIA W/C POV WITH SPOUSE TO HOME. INES FRAZIER SPOKE WITH PT AT LENGTH AT TIME OF DISCHARGE. PT AND SPOUSE VERBALIZED UNDERSTANDING OF ALL DISCHARGE INSTRUCTIONS AND IMPORTANCE OF TAKING ALL MEDIATIONS PRESCRIBED. MEDICATIONS FAXED TO PT'S PHARMACY OF CHOICE. ALL BELONGINGS SENT HOME WITH PATIENT.
== END 2019-03-31 11:50 | disposition home or self-care (01) | DRG 872 ==
LOC: ER 21:20 → MEDS 03-24 04:57 → ENPENDDIS 03-31 08:48 → MEDS 03-31 11:50
PROVIDERS: Emergency Medicine; Family Medicine; Internal Medicine Gastroenterology; Student in an Organized Health Care Education/Training Program; ADMIT Internal Medicine
DX: A41.9 Sepsis, unspecified organism (principal); K57.20 Diverticulitis of large intestine with perforation and abscess without bleeding; N32.1 Vesicointestinal fistula; I82.509 Chronic embolism and thrombosis of unspecified deep veins of unspecified lower extremity; K21.9 Gastro-esophageal reflux disease without esophagitis; K22.70 Barrett's esophagus without dysplasia; E78.5 Hyperlipidemia, unspecified; E11.9 Type 2 diabetes mellitus without complications; I48.0 Paroxysmal atrial fibrillation; D64.9 Anemia, unspecified; E86.0 Dehydration; I95.9 Hypotension, unspecified
CPT/HCPCS: 36415; 74177; 80053; 80069; 81001; 82947; 83605; 83690; 83880; 84100; 84145; 85025; 85027; 87077; 87086; 87186; 93005; 93010; 96361-59; 96365-59; 96375-59; 99285-25; A9270; A9270-GY; J0696; J1650; J2543; J2765; J7030; P9612; Q9967

== ENCOUNTER 2019-05-14 09:00 | Emergency (ER) | payer MEDICARE ==
[~2019-05-14] VITALS: Ht 149.9 cm; Wt 55.8 kg
[~2019-05-14 09:00] MED LIST changes: +Nitroglycerin0.4 MG SL; +Vitamin D2000 UNIT PO
[2019-05-14 10:38] LABS: BASOPHILS ABSOLUTE AUTO 0.02 K/mm3 (0.00-0.23); BASOPHILS PERCENT AUTO 0 % (0-2); EOSINOPHILS ABSOLUTE AUTO 0.08 K/mm3 (0.00-0.68); EOSINOPHILS PERCENT AUTO 1 % (0-6); Hematocrit 42.4 % (33.0-51.0); Hemoglobin 13.3 g/dL (11.5-16.0); IMMATURE GRAN ABSOLUTE AUTO 0.01 K/mm3 (0.00-0.10); IMMATURE GRAN PERCENT AUTO 0 % (0-1); LYMPHOCYTES ABSOLUTE AUTO 0.94 K/mm3 (0.84-5.20); LYMPHOCYTES PERCENT AUTO 13 % (21-46); MONOCYTES ABSOLUTE AUTO 1.08 K/mm3 (0.16-1.47); MONOCYTES PERCENT AUTO 15 % (4-13); Mean Corpuscular HGB 29.9 pg (26.0-34.0); Mean Corpuscular HGB Conc 31.4 g/dL (31.5-36.5); Mean Corpuscular Volume 95 fL (80-100); Mean Platelet Volume 9.5 fL (9.1-12.4); NEUTROPHILS ABSOLUTE AUTO 5.16 K/mm3 (1.96-9.15); NEUTROPHILS PERCENT AUTO 71 % (41-73); Platelet Count 361 K/mm3 (150-400); RDW Standard Deviation 56.7 fL (35.1-46.3); Red Blood Cell Count 4.45 M/mm3 (3.80-5.20); White Blood Cell Count 7.29 K/mm3 (4.00-11.30)
[2019-05-14 10:50] LABS: Alanine Aminotransfer (ALT/SGP 14 U/L (12-78); Albumin, Blood 2.4 g/dL (3.4-5.0); Albumin/Globulin Ratio 0.5 (0.8-1.8); Alk Phos 98 U/L (50-136); Anion Gap 6 mmol/L (6-16); Aspartate Aminotrans (AST/SGOT 19 U/L (12-37); Bilirubin, Total 0.5 mg/dL (0.1-1.0); Blood Urea Nitrogen 23 mg/dL (8-24); Bun/Creatinine Ratio 27.7 (12.0-20.0); CO2, Blood 25 mmol/L (21-32); Chloride, Blood 107 mmol/L (98-108); Creatinine, Blood 0.83 mg/dL (0.40-1.00); Globulin, Blood 4.8 g/dL (2.2-4.0); Glomerular Filtration Rate >60 (60-); Glucose, Blood 111 mg/dL (70-99); Potassium, Blood 3.8 mmol/L (3.5-5.5); Sodium, Blood 138 mmol/L (136-145); Total Protein, Blood 7.2 g/dL (6.4-8.2)
[2019-05-14 12:10] LABS: Source, Urine Clean Catch
[2019-05-14 12:15] LABS: Appearance, Urine Hazy (Clear); Bilirubin, Urine Neg (Neg); Blood, Urine 5+ (Neg); Color, Urine Yellow (P-Yellow); Glucose Qualitative, Urine Neg (Neg); Ketones, Urine 1+ (Neg); Leukocyte Esterase, Urine 3+ (Neg); Nitrite, Urine Neg (Neg); Protein, Urine Neg (Neg); Urobilinogen, Urine NORM (Normal); pH, Urine 6.5 (5.0-8.0)
[2019-05-14 12:26] LABS: Bacteria Mod /hpf; Squamous Epithelial Cells Mod /hpf (Few)
[2019-05-14] MEDS ORDERED: Keflex500 MG PO (12:39)
[2019-05-15] MEDS ORDERED: Excedrin Extra1 EACH PO (02:40)
[2019-05-15] MEDS ORDERED: METF500 (02:52)
== END 2019-05-14 13:07 | disposition home or self-care (01) ==
LOC: ER 09:00
PROVIDERS: Emergency Medicine
DX: N32.1 Vesicointestinal fistula (principal); N39.0 Urinary tract infection, site not specified; E11.9 Type 2 diabetes mellitus without complications; K57.32 Diverticulitis of large intestine without perforation or abscess without bleeding; Z88.8 Allergy status to other drugs, medicaments and biological substances; Z88.7 Allergy status to serum and vaccine; Z79.899 Other long term (current) drug therapy; Z79.01 Long term (current) use of anticoagulants
CPT/HCPCS: 74176; 80053; 81001; 83690; 85025; 87077; 87086; 87186; 93005; 93010; 99284-25

== ENCOUNTER 2019-05-14 20:08 | Inpatient (IN) | payer MEDICARE ==
[~2019-05-14] VITALS: Ht 157.5 cm; Wt 55.5 kg
[~2019-05-14 20:08] MED LIST changes: +Keflex500 MG PO
[2019-05-14 22:52] LABS: Hematocrit 38.4 % (33.0-51.0); Hemoglobin 12.1 g/dL (11.5-16.0); Mean Corpuscular HGB 30.1 pg (26.0-34.0); Mean Corpuscular HGB Conc 31.5 g/dL (31.5-36.5); Mean Corpuscular Volume 96 fL (80-100); Mean Platelet Volume 9.3 fL (9.1-12.4); Platelet Count 301 K/mm3 (150-400); RDW Coefficient Variation 15.8 % (11.7-14.2); RDW Standard Deviation 55.4 fL (35.1-46.3); Red Blood Cell Count 4.02 M/mm3 (3.80-5.20); White Blood Cell Count 9.25 K/mm3 (4.00-11.30)
[2019-05-14 23:11] LABS: BAND PERCENT MAN 30 % (0-8); BASOPHILS PERCENT MAN 0 % (0-2); EOSINOPHILS PERCENT MAN 0 % (0-6); LYMPHOCYTES ABSOLUTE MAN 0.18 K/mm3 (0.84-5.20); LYMPHOCYTES PERCENT MAN 2 % (21-46); MONOCYTES ABSOLUTE MAN 0.27 K/mm3 (0.16-1.47); MONOCYTES PERCENT MAN 3 % (4-13); NEUTROPHILS ABSOLUTE MAN 8.78 K/mm3 (1.96-9.15); SEG NEUTROPHILS PERCENT MAN 65 % (41-73); TOTAL CELLS COUNTED 100
[2019-05-14 23:12] LABS: Albumin, Blood 2.2 g/dL (3.4-5.0); Albumin/Globulin Ratio 0.5 (0.8-1.8); Bilirubin, Total 0.4 mg/dL (0.1-1.0); Bun/Creatinine Ratio 29.3 (12.0-20.0); Calcium, Blood 8.7 mg/dL (8.5-10.1); Creatinine, Blood 0.99 mg/dL (0.40-1.00); Globulin, Blood 4.1 g/dL (2.2-4.0); Magnesium, Blood 2.1 mg/dL (1.6-2.4); Potassium, Blood 3.6 mmol/L (3.5-5.5); Total Protein, Blood 6.3 g/dL (6.4-8.2)
[2019-05-14 23:13] LABS: Troponin I 0.675 ng/mL (0.000-0.040)
--- NOTE | 2019-05-15 02:22 | NUR ---
0215 PT ARRIVED TO ROOM VIA STRETCHER WITH ALL PERSONAL BELONGINGS.
[2019-05-15] MEDS ORDERED: Excedrin Extra1 EACH PO (02:40)
[2019-05-15 02:45] LABS: Hematocrit 34.1 % (33.0-51.0); Hemoglobin 10.6 g/dL (11.5-16.0); Mean Corpuscular HGB 30.1 pg (26.0-34.0); Mean Corpuscular HGB Conc 31.1 g/dL (31.5-36.5); Mean Corpuscular Volume 97 fL (80-100); Mean Platelet Volume 9.5 fL (9.1-12.4); Platelet Count 266 K/mm3 (150-400); RDW Coefficient Variation 15.9 % (11.7-14.2); RDW Standard Deviation 56.1 fL (35.1-46.3); Red Blood Cell Count 3.52 M/mm3 (3.80-5.20); White Blood Cell Count 7.57 K/mm3 (4.00-11.30)
[2019-05-15] MEDS ORDERED: METF500 (02:52)
[2019-05-15 03:00] LABS: Anion Gap 7 mmol/L (6-16); Blood Urea Nitrogen 25 mg/dL (8-24); CO2, Blood 23 mmol/L (21-32); Calcium, Blood 7.8 mg/dL (8.5-10.1); Chloride, Blood 115 mmol/L (98-108); Creatinine, Blood 0.93 mg/dL (0.40-1.00); Glomerular Filtration Rate >60 (60-); Glucose, Blood 83 mg/dL (70-99); Potassium, Blood 3.5 mmol/L (3.5-5.5); Sodium, Blood 145 mmol/L (136-145)
[2019-05-15 03:11] LABS: BAND PERCENT MAN 34 % (0-8); BASOPHILS PERCENT MAN 0 % (0-2); EOSINOPHILS PERCENT MAN 0 % (0-6); LYMPHOCYTES ABSOLUTE MAN 0.07 K/mm3 (0.84-5.20); LYMPHOCYTES PERCENT MAN 1 % (21-46); MONOCYTES ABSOLUTE MAN 0.22 K/mm3 (0.16-1.47); MONOCYTES PERCENT MAN 3 % (4-13); NEUTROPHILS ABSOLUTE MAN 7.26 K/mm3 (1.96-9.15); SEG NEUTROPHILS PERCENT MAN 62 % (41-73); TOTAL CELLS COUNTED 100
--- NOTE | 2019-05-15 03:29 | NUR ---
0330 PT TROPONIN 1.1, DENIES CHEST PAIN, NAUSEA OR SOB, DR LANG NOTIFIED WITH MD TO INPUT ORDERS TO START HEPARIN GTT AND LABS.
--- NOTE | 2019-05-15 03:48 | NUR ---
THIS NURSE CALLED INSEMINATOR AND SURGICAL ANSWERING SERVICES AND SPOKE WITH GLENYS FOR AM CONSULTATIONS TODAY.
--- NOTE | 2019-05-15 04:17 | NUR ---
THIS NURSE STARTED IV LEFT WRIST, 20 GUAGE X 1 ATTEMPT AND LABS WERE DRAWN FROM IV SITE BY THIS NURSE FOR FLORAL DEPARTMENT SPECIALIST--EDWARD.
[2019-05-15 04:56] LABS: International Normalized Ratio 1.14; Prothrombin Time Results 11.9 Sec (9.7-11.5)
--- NOTE | 2019-05-15 06:26 | NUR ---
SHIFT SUMMARY: 79 Y/O FEMALE RESTED COMFORTABLY, PTS TROPONIN 1.1 THIS AM WITH PATIENT STARTED ON HEPARIN GTT AT 14.3ML/HR VIA LEFT WRIST, NO S/S BLEEDING NOTED, NEXT PTT LAB DRAW SCHEDULED FOR 1100 (PTT THIS AM WAS 31.5), TELEMETRY REFLECTS NSR WITH HEART RATE 76, PT NPO, SCHEDULED FOR ECHO THIS AM; MEDS ARE CURRENTLY INCOMPLETE AND WILL PASSED ONTO DAY SHIFT RN TO COMPLETE PT SLIGHTLY FORGETFUL AND POOR HISTORIAN, VOIDING PER BEDPAN, BED ALARM APPLIED, BED LOW POSITION, CALL LIGHT AT SIDE.
[2019-05-15 12:50] LABS: Anion Gap 7 mmol/L (6-16); Blood Urea Nitrogen 24 mg/dL (8-24); Bun/Creatinine Ratio 26.1 (12.0-20.0); CO2, Blood 25 mmol/L (21-32); Chloride, Blood 112 mmol/L (98-108); Creatinine, Blood 0.92 mg/dL (0.40-1.00); Glomerular Filtration Rate >60 (60-); Glucose, Blood 54 mg/dL (70-99); Potassium, Blood 3.7 mmol/L (3.5-5.5); Sodium, Blood 144 mmol/L (136-145)
--- NOTE | 2019-05-15 12:50 | NUR ---
PT HAD A CRITICAL LOW BG LEVEL AT 46. DR. DOZIER INFORMED OF LEVEL, HE ADVISED TO CONTINUE WITH D5 1/2 NS 20K, AND TO ORDER A BASIC METABOLIC PANEL TO COMPARE RESULTS. PT ALSO HAD A CRITICAL HIGH APTT >139. PHARMACY INFORMED AND ADVISED D/C OF HEPRIN DRIP FOR 1 HOUR AND RESTARTING AT 10 UNITS/ HR. CRITICAL HIGH TROPONIN LEVEL OF 1.51. CALLED DR. SHER ABOUT THESE RESULTS. HE DISCONTINUED THE HEPRIN DRIP AND SWITCHED TO LEVONOX. HE ALSO INQUIRED ABOUT THE SURGICAL CONSULT HE BELIEVES THAT THE GI ISSUES ARE THE ROOT CAUSE OF HER PROBLEMS. I CALLED DR. RUTLEDGE TO MAKE SURE THAT HE HAD RECIEVED THE CONSULT AND TO FIND OUT IF HE WAS GOING TO BE AVALIABLE TO COME TODAY AND LEFT A MESSAGE WITH HIS ANSWERING SERVICE.
[2019-05-15 14:18] LABS: Free Thyroxine 1.17 ng/dL (0.70-1.60)
[2019-05-15 14:20] LABS: Glucose, Blood 51 mg/dL (70-99)
--- NOTE | 2019-05-15 17:47 | NUR ---
PT WAS ON NPO STATUS THIS MORNING AND STATED SHE WANTED TO EAT. PT'S GLUCOSE LEVELS WERE VERY LOW THIS SHIFT AND DR. DOZIER PRECRIBED D5 FLUIDS. PT HAD CONSULT WITH AD TAKER DR. SHER, AND CONSULT WITH SURGEON DR. RUTLEDGE, PT WAS TAKEN OFF NPO STATUS AND TOLERATED MEALS WELL. PT WILL GO BACK ON NPO STATUS AFTER MIDNIGHT FOR POSSIBLE SX TOMORROW DEPENDING ON LAB RESULTS. PT'S TRIPONIN REMAINED ELEVATED DURING THIS SHIFT. PT MADE FREQUENT TRIPS TO THE RESTROOM AND EXPRESSED FEELING LIKE SHE NEEDED TO HAVE A BM BUT COULDNT.
--- NOTE | 2019-05-16 04:24 | NUR ---
Shift summary. Blood sugars started out in the fourties and we couldnt seem to get it higher even with food. MD notified. Order for 1/2 amp d50 recieved and iv fluids uped to 150. Blood sugars were taken q 2 hours during the night. The last three werein the 80's. Pt up to BR x 3 during the night with one assist . pt did well. Pt on telemetry. - SR 1st degree block. No ST elevation noted. No chest pain reported. Pt c/o constipation- given a brown cow. No results yet.
--- NOTE | 2019-05-16 09:20 | NUR ---
TALKED TO DR.M. PEARCE. NO SURGERY TILL TROPONIN NORMAL. OK TO GIVE LOVENOX IF HOSPITALIST ORDERS.
--- NOTE | 2019-05-16 09:29 | NUR ---
TALKED TO NO TROPONIN ORDERED. LAST TROP YESTERDAY AT 11AM AND TRENDING UP. NEEDS LOVENOX. HEPARIN D'C YESTERDAY UNSURE WHY. WILL CHECK CHART AND GET BACK TO ME.
--- NOTE | 2019-05-16 13:07 | NUR ---
CALLED CELL PHONE AND LEFT MESSAGE TO CALL BACK AT [phone] ABOUT RM [phone]. WILL ASK ABOUT LOVENOX TROPONIN IS TRENDING DOWN.
--- NOTE | 2019-05-16 17:53 | NUR ---
ALERT. ORIENTED. INDEPENDENT IN ROOM. PER SURGERY POSSIBLY ON THURSDAY IF TROP BACK TO NORMAL RANGE. PER HE IS FOLLOWING TROP LEVELS AND WILL ORDER DRAW FOR TOMORROW. IV PATENT W/D5 1/2NS RUNNING AT 150ML/HR. BLOOD SUGARS HAVE NORMALIZED SO BACK TO AC/HS. TELE ON SR W/FIRST DEGREE AT 83. DENIES PAIN. UNLABORED RESPIRATIONS. BED IN LOW POSITION. ABLE TO MAKE NEEDS KNOWN. WCTM.
--- NOTE | 2019-05-16 18:19 | NUR ---
Spiritual Care inital note: Per admit trigger, I met with Rosita to offer prayer and spiritual support. She tells me she is mostly irritated to be going through "all this." She is anxious for surgery and tells me she is tired of pain/illness. Spouse was at bedside and said little but was pleasant. Rosita appears weak and states she is very tired. Visit kept short. I provided prayer and assurance of God's love and attention. She thanked me for visit. I will remain available.
--- NOTE | 2019-05-17 05:35 | NUR ---
SHIFT SUMMARY: 79 Y/O FEMALE RESTED COMFORTABLY ALL SHIFT, DENIES PAIN OR NAUSEA, UP FREQUENTLY TO VOID CLEAR YELLOW FLUID, GAIT SLOW AND SLIGHTLY UNSTEADY VIA WALKER WITH ONE STANDBY ASSIST (HOLDS ONTO OBJECTS AND PELLETIER AND REQUIRED REMINDER TO UTILIZE WALKER, BED ALARM APPLIED), ALERT AND ORIENTED X 2, TELEMETRY REFLECTS NSR, FIRST DEGREE BLOCK WITH HEART RATE 80, BED LOW POSITION, CALL LIGHT AT SIDE.
[2019-05-17 08:08] LABS: C-PEPTIDE, SERUM 5.2 ng/mL (1.1-4.4)
--- NOTE | 2019-05-17 18:54 | NUR ---
ALERT. ORIENTED. ONE PERSON STANDBY ASSIST TO BATHROOM. AWARE WILL HAVE SURGERY ON THURSDAY. MEDICATED FOR HEADACHE W/GOOD RESULTS. DENIES ANY OTHER PAIN. PLEASANT. COOPERATIVE. UNLABORED RESPIRATIONS. BED IN LOW PASITION. ABLE TO MAKE NEEDS KNOWN. WCTM.
--- NOTE | 2019-05-18 04:58 | NUR ---
SHIFT SUMMARY: 79 Y/O FEMALE RESTED COMFORTABLY ALL SHIFT, DENIES PAIN OR NAUSEA, IV PATENT LEFT UPPER ARM POWER GLIDE, ABLE PIVOT, STAND, TRANSFER AND AMBULATE TO BATHROOM X 1 STANDBY ASSIST WITH GAIT SLOW AND SLIGHTLY UNSTEADY, HAPPY AND COOPERATIVE, BED LOW POSITION, CALL LIGHT AT SIDE.
--- NOTE | 2019-05-18 21:09 | NUR ---
OOB WITH STAND BY ASSIST TO BSC DURING BOWEL PREP. VERY HESITANT TO USE FWW. DOES CALL APPROPRIATELY FOR ASSISTANCE.
--- NOTE | 2019-05-19 04:37 | NUR ---
TOLERATED 2ND HALF OF BOWEL PREP WITHOUT DIFFICULTY. BY 0100, PATIENTS LAST STOOL WAS PACHECO TO CLEAR WITH SMALL BITS OF SOLID MATERIAL AND MIXED WITH URINE. MEDICATED ONCE WITH TYLENOL FOR HEADACHE PAIN WITH COMPLETE RELIEF AFTER ONE HALF HOUR. ABDOMEN TENDER TO GENTLE PALPATION IN CENTER SURROUNDING UMBILICUS. CALMOZINE CREAM TO RECTAL AREA FOR COMPLAINT OF HEMMOROID PAIN WITH CONSTANT WIPING. PATIENT IS ACCEPTING OF NEED FOR PROCEDURE AND HAS BEEN NPO SINCE MIDNIGHT.
[2019-05-19 05:10] LABS: BASOPHILS ABSOLUTE AUTO 0.03 K/mm3 (0.00-0.23); BASOPHILS PERCENT AUTO 1 % (0-2); EOSINOPHILS ABSOLUTE AUTO 0.16 K/mm3 (0.00-0.68); EOSINOPHILS PERCENT AUTO 5 % (0-6); Hematocrit 34.5 % (33.0-51.0); Hemoglobin 10.9 g/dL (11.5-16.0); IMMATURE GRAN ABSOLUTE AUTO 0.07 K/mm3 (0.00-0.10); IMMATURE GRAN PERCENT AUTO 2 % (0-1); LYMPHOCYTES ABSOLUTE AUTO 1.42 K/mm3 (0.84-5.20); LYMPHOCYTES PERCENT AUTO 41 % (21-46); MONOCYTES ABSOLUTE AUTO 0.49 K/mm3 (0.16-1.47); MONOCYTES PERCENT AUTO 14 % (4-13); Mean Corpuscular HGB 29.2 pg (26.0-34.0); Mean Corpuscular HGB Conc 31.6 g/dL (31.5-36.5); Mean Platelet Volume 9.1 fL (9.1-12.4); NEUTROPHILS ABSOLUTE AUTO 1.28 K/mm3 (1.96-9.15); NEUTROPHILS PERCENT AUTO 37 % (41-73); Platelet Count 266 K/mm3 (150-400); RDW Coefficient Variation 15.6 % (11.7-14.2); RDW Standard Deviation 52.7 fL (35.1-46.3); Red Blood Cell Count 3.73 M/mm3 (3.80-5.20); White Blood Cell Count 3.45 K/mm3 (4.00-11.30)
[2019-05-19 05:14] LABS: Mean Corpuscular Volume 93 fL (80-100)
[2019-05-19 05:35] LABS: Anion Gap 6 mmol/L (6-16); Blood Urea Nitrogen 3 mg/dL (8-24); Bun/Creatinine Ratio 3.7 (12.0-20.0); CO2, Blood 23 mmol/L (21-32); Calcium, Blood 8.1 mg/dL (8.5-10.1); Chloride, Blood 113 mmol/L (98-108); Glomerular Filtration Rate >60 (60-); Glucose, Blood 137 mg/dL (70-99); Potassium, Blood 4.2 mmol/L (3.5-5.5); Sodium, Blood 142 mmol/L (136-145)
[2019-05-19 11:21] LABS: Source, Urine Clean Catch
[2019-05-19 11:50] LABS: Bilirubin, Urine Neg (Neg); Blood, Urine 5+ (Neg); Glucose Qualitative, Urine Neg (Neg); Ketones, Urine Neg (Neg); Leukocyte Esterase, Urine 3+ (Neg); Nitrite, Urine Neg (Neg); Protein, Urine Neg (Neg); Urobilinogen, Urine NORM (Normal)
--- NOTE | 2019-05-19 12:15 | NUR ---
History, Chart, Medications and Allergies reviewed before start of procedure. Patient confirms NPO status and agrees with scheduled surgery. Pre-Op teaching done. Pt verbalizes understanding. Lungs clear T/O to Auscultation.
--- NOTE | 2019-05-19 12:16 | NUR ---
SHE DENIED PAIN OR NAUSEA ALL MORNING. SHE FEELS TIRED AND WEAK. SHE HAS VERY POOR SHORT TERM MEMORY. SHE HAS VOIDED AND PASSED SMALL AMT OF YELLOW SEDIMENT PROBABLY FROM RECTUM. SHE WALKS WITH SBA AND A WALKER IN THE ROOM. HER FAMILY WAS WITH HER. SHE TOLD SHE HASN'Y HAD A GOOD BM AND IS NOT CLEARED OUT. IT WAS REPORTED TO ME THAT SHE HAD BEEN UP TO THE COMMODE SEVERAL TIMES DURING THE NIGHT AND TOLERATED THE BOWEL PREP WELL. THE CHARTING SHOWS 13 BM'S. THE PATIENT DOESN'T REMEMBER THAT. SHE IS VERY PLEASANT BUT AN UNRELIABLE HISTORIAN. IVF'S INFUSED ALL MORNING, DISCONNECTED SO SHE COULD GO DOWNSTAIRS. SHE HAS A [place] POWERGLIDE. TELE NSR.CBG STABLE. ONE NOT DONE BEFORE SHE LEFT. TO O.R. VIA TARIQ AT [address] FOR [address] BY [address] SAMPSON.
[2019-05-19 12:20] LABS: Appearance, Urine Cloudy (Clear); Color, Urine Yellow (P-Yellow)
[2019-05-19 12:25] LABS: Red Blood Cells, Urine TNTC /hpf (0-2); Squamous Epithelial Cells Few /hpf (Few); White Blood Cells, Urine TNTC /hpf (0-5)
[2019-05-19 12:26] LABS: Bacteria Mod /hpf; Yeast/Fungi Urine Many /hpf
--- NOTE | 2019-05-19 12:36 | NUR ---
REPORT GIVEN TO TREE JOHNS.
--- NOTE | 2019-05-19 12:36 | NUR ---
THIS RN RECIEVED REPORT FROM MEDICAL FLOOR RN ALEKSANDRA PT OUT OF ROOM FOR PROCEDURE.
--- NOTE | 2019-05-19 13:02 | NUR ---
DISCUSSED IV ACCES WITH DR. PERRY IBRAHIM REPORTS WILL START ADDITIONAL IV IN OR IF NEEDED.
--- NOTE | 2019-05-19 13:52 | NUR ---
05/19/19 1352 Venus Oconnor PT ON SCHEDULED ANTIBIOTICS
--- NOTE | 2019-05-19 16:00 | NUR ---
PT HERE FROM PACU. PT MOVED TO BED WITH MULT ASSIST. PT DENIES PAIN AT THIS TIME. PT LS CLEAR. PT HAS STERI-STRIPS TO ABD. OSTOMY IN PLACE. PT SPEECH CLEAR. SLEEPY BUT AWAKENS EASILY. FAMILY PRESENT. NO SORES NOTED TO BOTTOM.
--- NOTE | 2019-05-20 05:00 | NUR ---
SHIFT SUMMARY: PT POD #1 FOR LAP COLECTOMY. OSTOMY DRAINING YELLOW/GREEN LIQ. SANGUINOUS DRG NOTED AROUND STOMA. BOWEL TONES PRESENT IN ALL QUADRANTS. JOHNATHON CLEAR LIQ DIET. OOB TO BATHROOM WITH ONE ASSIST. INCONTINENT ONCE WITH ATTENDS ON. PAIN BEING MANAGED WITH NORCO PER EMAR.
--- NOTE | 2019-05-20 08:42 | NUR ---
PT UP TO CHAIR WITH MULT ASSIST. PT VSS. DENIES DIZZINESS.
--- NOTE | 2019-05-20 11:03 | NUR ---
DR FULLER RECENTLY HERE TO SEE PT.
--- NOTE | 2019-05-20 11:46 | NUR ---
DR SAMPSON RECENTLY HERE TO SEE PT, FAMILY PRESENT.
--- NOTE | 2019-05-20 16:16 | NUR ---
DR MARADIAGA REPORTED TO PLACE TELE BACK IN PLACE. TELE WAS NOTIFIED.
--- NOTE | 2019-05-20 16:17 | NUR ---
SHIFT SUMMARY PT WAS SLIGHTLY NAUSEOUS EARLIER THIS AM. PT REPORTS DOING BETTER NOW AND WOULD LIKE TO ADVANCE HER DIET. PT BEEN UP IN CHAIR. PT VOIDING. JUDITH PEDERSON TO SEE PT TODAY. PT WISHING TO HAVE TOMATO SOUP FOR DINNER. FAMILY IN ROOM MOST OF DAY. PT BEEN ASSISTED WITH ADL'S PRN.
--- NOTE | 2019-05-20 16:35 | NUR ---
REPORT GIVEN TO OTHER RN Kayla WHO IS PLACING TELE IN PLACE AND WILL BE ASSUMING CARE OF PT AT THIS TIME.
--- NOTE | 2019-05-20 17:05 | NUR ---
tele replaced per andriy sr 70 pt visiting with spouse
--- NOTE | 2019-05-20 17:50 | NUR ---
pt eating dinner spouse is going home for the night
--- NOTE | 2019-05-21 06:31 | NUR ---
Patient alert and oriented. Vital signs stable. Up to bedside commode with one assist. Ostomy producing brown liquid and gas. patient voiding. IVF infusing. Complaints of pain to abdomen, medicated as ordered.
--- NOTE | 2019-05-21 10:56 | NUR ---
DR. MCCALL IN TO SEE PT AT 1050, PLAN TO ADVANCE DIET TO FULL LIQUIDS.
--- NOTE | 2019-05-21 17:02 | NUR ---
SHIFT SUMMARY A&O, VSS, SPO2 99% RA. TELE IN PLACE, SR 1ST DEGREE BLOCK WITH CLEARANCE CUTTER @ 68 BPM- PER OFFICE WORKER. 1 ASSIST W/AMBULATION IN HALLWAY AND BATHROOM. UP IN CHAIR FOR DINNER. OSTOMY PRODUCING BROWN LIQUID WITH MEATY COLORED STOMA. PAIN CONTROLLED WITH REPOSITIONING AND 1 PAIN PILL. TOLERATING REGULAR, SOFT DIET. SPOUSE AT BEDSIDE T/O SHIFT.
[2019-05-22 04:33] LABS: Alanine Aminotransfer (ALT/SGP 9 U/L (12-78); Albumin, Blood 1.6 g/dL (3.4-5.0); Albumin/Globulin Ratio 0.5 (0.8-1.8); Alk Phos 58 U/L (50-136); Anion Gap 5 mmol/L (6-16); Aspartate Aminotrans (AST/SGOT 17 U/L (12-37); Bilirubin, Total 0.2 mg/dL (0.1-1.0); Blood Urea Nitrogen 7 mg/dL (8-24); Bun/Creatinine Ratio 7.5 (12.0-20.0); CO2, Blood 26 mmol/L (21-32); Chloride, Blood 113 mmol/L (98-108); Creatinine, Blood 0.94 mg/dL (0.40-1.00); Globulin, Blood 3.2 g/dL (2.2-4.0); Glomerular Filtration Rate >60 (60-); Glucose, Blood 87 mg/dL (70-99); Potassium, Blood 3.7 mmol/L (3.5-5.5); Sodium, Blood 144 mmol/L (136-145); Total Protein, Blood 4.8 g/dL (6.4-8.2)
--- NOTE | 2019-05-22 06:29 | NUR ---
SUMMARY PT WITH KEENA VIVEROS VIA OSTOMY. SMALL AMNTS. DENIES NAUSEA. TOLERATING PO. REPORTS THIS AM PAIN LEVEL 4. MED PO FOR PAIN.
--- NOTE | 2019-05-22 10:10 | NUR ---
SPOKE WITH DR. FULLER TO CLARIFY ORDERS. FLUIDS DC'D, TELE DC'D AND AC CBG CHECKS DC'D. WILL CONTINUE TO MONITOR. PATIENT STATES SHE DOES NOT CHECK CBG'S AT HOME. PATIENT TOLERATING PO WELL, DRINKING FLUIDS.
[2019-05-22] MEDS ORDERED: METO50ER PO (16:01)
[2019-05-22] MEDS ORDERED: AMLO10 PO (16:04)
--- NOTE | 2019-05-22 17:38 | NUR ---
DISCHARGE PATIENT DISCHARGED TO HOME VIA WHEELCHAIR. LEFT WITH IN VEHICLE. DISCHARGE INSTRUCTIONS AND OSTOMY CARE GONE OVER WITH PATIENT AND . PERSCRIPTIONS SENT WITH PATIENT. ASKED QUESTIONS AND WERE ABLE TO DO DEMONSTRATIONS BACK, ASKED MANY QUESTIONS. EXPRESSED AN INTEREST IN LEARNING. PATIENT LEFT WITH OSTOMY SUPPLIES. AND OSTOMY SUPPLIES ORDERED, HOME HEALTH CALLED FOR PATIENT. PATIENT SHOWED INTEREST IN LEARNING AND ACTIVELY PARTICIPATED IN LEARNING. OSTOMY WAS PINK AND BEEFY, PATIENT HAD BROWN OUTPUT AND ACTIVE BOWEL SOUNDS. PATIENT ONLY COMPLAINED OF PAIN WHEN GETTING OUT OF BED. MANAGED WITH TWO TYLENOL. PATIENT AMBULATED WELL WITH FRONT WHEEL WALKER.
[2019-05-23 12:07] LABS: FREE INSULIN 3.1 uU/mL (.); TOTAL INSULIN 3.4 uU/mL (.)
== END 2019-05-22 17:06 | disposition home or self-care (01) | DRG 853 ==
LOC: ER 20:08 → MEDS 23:45 → ER 05-15 02:13 → MEDS 05-15 02:15 → SURS 05-19 12:00
PROVIDERS: Emergency Medicine; Internal Medicine; Internal Medicine Endocrinology, Diabetes & Metabolism; Surgery; ADMIT Hospitalist
PROC: 0D1M4Z4 Bypass Descending Colon to Cutaneous, Percutaneous Endoscopic Approach (ICD-10-PCS; principal; 2019-05-19 11:45)
DX: A41.9 Sepsis, unspecified organism (principal); I21.A1 Myocardial infarction type 2; I50.32 Chronic diastolic (congestive) heart failure; N32.1 Vesicointestinal fistula; K57.32 Diverticulitis of large intestine without perforation or abscess without bleeding; K21.9 Gastro-esophageal reflux disease without esophagitis; R65.20 Severe sepsis without septic shock; K22.70 Barrett's esophagus without dysplasia; M17.11 Unilateral primary osteoarthritis, right knee; I25.10 Atherosclerotic heart disease of native coronary artery without angina pectoris; E78.5 Hyperlipidemia, unspecified; G56.00 Carpal tunnel syndrome, unspecified upper limb; I67.9 Cerebrovascular disease, unspecified; M50.30 Other cervical disc degeneration, unspecified cervical region; I48.0 Paroxysmal atrial fibrillation; Z98.61 Coronary angioplasty status; E11.649 Type 2 diabetes mellitus with hypoglycemia without coma; Z88.8 Allergy status to other drugs, medicaments and biological substances; Z79.84 Long term (current) use of oral hypoglycemic drugs
CPT/HCPCS: 36415; 74176; 80048; 80053; 81001; 82024; 82533; 82947; 83525; 83527; 83605; 83690; 83735; 84439; 84443; 84484; 84681; 85025; 85610; 85730; 87040; 87077; 87086; 87186; 93005; 93010; 93306; 96365; 96367; 96375; 97116; 97161; 99284-25; 99285-25; A9270; A9270-GY; C1751; J1100; J1644; J1650; J2270; J2370; J2405; J2543; J2704; J2710; J3010; J7030; J7120; J7799

== ENCOUNTER 2019-05-27 18:09 | Inpatient (IN) | payer MEDICARE ==
[~2019-05-27] VITALS: Ht 157.5 cm; Wt 54.3 kg
[~2019-05-27 18:09] MED LIST changes: +AMLO10 PO; +METF500; +METO50ER PO
[2019-05-27 18:28] LABS: BASOPHILS ABSOLUTE AUTO 0.05 K/mm3 (0.00-0.23); BASOPHILS PERCENT AUTO 0 % (0-2); EOSINOPHILS ABSOLUTE AUTO 0.17 K/mm3 (0.00-0.68); EOSINOPHILS PERCENT AUTO 1 % (0-6); Hematocrit 40.1 % (33.0-51.0); Hemoglobin 12.3 g/dL (11.5-16.0); IMMATURE GRAN ABSOLUTE AUTO 0.19 K/mm3 (0.00-0.10); IMMATURE GRAN PERCENT AUTO 1 % (0-1); LYMPHOCYTES ABSOLUTE AUTO 1.46 K/mm3 (0.84-5.20); LYMPHOCYTES PERCENT AUTO 11 % (21-46); MONOCYTES ABSOLUTE AUTO 0.75 K/mm3 (0.16-1.47); MONOCYTES PERCENT AUTO 6 % (4-13); Mean Corpuscular HGB 30.6 pg (26.0-34.0); Mean Corpuscular HGB Conc 30.7 g/dL (31.5-36.5); Mean Platelet Volume 9.6 fL (9.1-12.4); NEUTROPHILS ABSOLUTE AUTO 10.72 K/mm3 (1.96-9.15); NEUTROPHILS PERCENT AUTO 80 % (41-73); Platelet Count 427 K/mm3 (150-400); RDW Coefficient Variation 17.4 % (11.7-14.2); RDW Standard Deviation 63.3 fL (35.1-46.3); Red Blood Cell Count 4.02 M/mm3 (3.80-5.20); White Blood Cell Count 13.34 K/mm3 (4.00-11.30)
[2019-05-27 18:29] LABS: Mean Corpuscular Volume 100 fL (80-100)
[2019-05-27] MEDS ORDERED: ELIQUIS2.5 MG PO (18:38)
[2019-05-27 18:48] LABS: International Normalized Ratio 0.97; Prothrombin Time Results 10.3 Sec (9.7-11.5)
[2019-05-27 18:56] LABS: Ethanol (Alcohol), Blood, Med <3 mg/dL
[2019-05-27 18:58] LABS: Alanine Aminotransfer (ALT/SGP 14 U/L (12-78); Albumin, Blood 2.5 g/dL (3.4-5.0); Albumin/Globulin Ratio 0.6 (0.8-1.8); Alk Phos 95 U/L (50-136); Anion Gap 6 mmol/L (6-16); Aspartate Aminotrans (AST/SGOT 21 U/L (12-37); Bilirubin, Total 0.1 mg/dL (0.1-1.0); Blood Urea Nitrogen 18 mg/dL (8-24); Bun/Creatinine Ratio 19.4 (12.0-20.0); CO2, Blood 27 mmol/L (21-32); Calcium, Blood 8.3 mg/dL (8.5-10.1); Chloride, Blood 108 mmol/L (98-108); Creatinine, Blood 0.93 mg/dL (0.40-1.00); Globulin, Blood 4.4 g/dL (2.2-4.0); Glomerular Filtration Rate >60 (60-); Glucose, Blood 45 mg/dL (70-99); Potassium, Blood 3.4 mmol/L (3.5-5.5); Sodium, Blood 141 mmol/L (136-145); Total Protein, Blood 6.9 g/dL (6.4-8.2)
[2019-05-27] MEDS ORDERED: AMLO10 PO (19:06)
[2019-05-27] MEDS ORDERED: Isosorbide Mono30 MG PO (19:07)
[2019-05-27] MEDS ORDERED: OMEP20ER PO (19:07)
[2019-05-27] MEDS ORDERED: GLIM2 PO (19:07)
[2019-05-27 20:47] LABS: Source, Urine Clean Catch
[2019-05-27 20:58] LABS: Bilirubin, Urine Neg (Neg); Blood, Urine 1+ (Neg); Glucose Qualitative, Urine Neg (Neg); Ketones, Urine Neg (Neg); Leukocyte Esterase, Urine 3+ (Neg); Nitrite, Urine Neg (Neg); Protein, Urine Neg (Neg); Specific Gravity, Urine 1.005 (1.003-1.022); Urobilinogen, Urine NORM (Normal)
[2019-05-27 21:08] LABS: Appearance, Urine Clear (Clear); Color, Urine Pale Yellow (P-Yellow)
[2019-05-27 21:09] LABS: Red Blood Cells, Urine 0-2 /hpf (0-2); Squamous Epithelial Cells Not Seen /hpf (Few)
[2019-05-27 21:10] LABS: Bacteria Many /hpf
[2019-05-27 21:12] LABS: U Amphetamine Screen Not Detected; U Barbituate Screen Not Detected; U Benzodiazapine Screen Not Detected; U Buprenorphine Screen Not Detected; U Cannabinoids Screen Not Detected; U Cocaine Screen Not Detected; U Methadone Screen Not Detected; U Methamphetamine Screen Not Detected; U Opiates Screen Not Detected; U Oxycodone Screen Not Detected; U Phencyclidine Screen Not Detected; U Propoxyphene Screen Not Detected
--- NOTE | 2019-05-27 23:30 | NUR ---
PT ARRIVES TO ICU 3 VIA GURNEY FROM ER FOR DX OF HYPOGLYCEMIA, CBG PRIOR TO TRANSFER IS IMPROVED TO 175, WILL MONITOR. PT IS ALERT AND ORIENTED X 3, SPEAKING IN FULL SENTANCES, C/O 3/10 GENERALIZED ACHING PAIN HOWEVER DECLINES INTERVENTIONS OTHER THAN ALLOWNG A PILLOW PLACED TO ALLEVIATE DISCOMFORT TO COCCYX WHICH PT STATES THAT SHE FELL ON A COUPLE OF DAYS AGO. SHE STATES THAT SHE HAS NOT TAKEN HER HOME MEDICATIONS INCLUDING HER ELOQUIS AND METFORMIN SINCE THURSDAY. SHE DENIES N/V, DENIES SOB/DYSPNEA, DENIES NUMBNESS/TINGLING. NOTED ON D5 @ 150 ML/HR TO LEFT AC 18 GAUGE IV, SITE WNL, DRESSING CDI.
--- NOTE | 2019-05-28 00:43 | NUR ---
PT DENIES SYMPTOMS OF HYPOGLYCEMIA, ALERT AND ORIENTED AT THIS TIME, NO SLURRING OR DIFFICULTY SWALLOWING, ENSURE PROVIDED, WILL REASSESS CBG.
--- NOTE | 2019-05-28 00:50 | NUR ---
SPOKE WITH DR MARTÍNEZ, HOSPITALIST TANK FILLER, REGARDING PT'S CONTINUED HYPOGLYCEMIA, D5 AT 150 ML/HR, D50 2.5 AMPS TOTAL SINCE ARRIVAL TO ER. DISCUSSED THAT PT HAS NOT TAKEN HOME METFORMIN SINCE THURSDAY AND THAT SHE HAS HAD A REPORTED 25 LB WEIGHT LOSS OVER THE LAST MONTH TO MONTH AND A HALF. ORDERS OBTAINED FOR D10 @ 75 ML/HR WILL CONT TO MONITOR.
--- NOTE | 2019-05-28 04:18 | NUR ---
PT REQUESTS LABS BE DRAWN LATER THIS AM
--- NOTE | 2019-05-28 06:11 | NUR ---
PT CONTINUES HYPOGLYCEMIC, CONTINUES TO REMAIN ALERT AND ORIENTED AND DENIES SYMPTOMS OF HYPOGLYCEMIA. DISCUSSED WITH DR MARTÍNEZ, D10 INCREASED TO 100 ML/HR PER ORDERS AT THIS TIME.
--- NOTE | 2019-05-28 06:12 | NUR ---
PT RESTS QUIETLY AFTER ADMISSION THIS SHIFT. REMAINS HYPOGLYCEMIC WITH BLOOD GLUCOSE LEVELS 54-62 THIS AM, D51/2 NS AT 150 ML/HR CHANGED TO D10 AND INCREASED TO 100 ML/HR, PT CONTINUES TO TOLERATE PO INTAKE AND HAS HAD HALF SANDWICHES, ORANGE JUICE, AND ENSURE WITHOUT NOTED INCREASE IN BLOOD GLUCOSE LEVELS. SHE DOES ALSO COMPLAIN OF SORENESS TO HER "TAILBONE" AFTER GROUND LEVEL FALL AT HOME THURSDAY NIGHT, PAIN IS CONTROLLED WITH POSITIONING PER PT. NEW OSTOMY ON 05/19/19, PRODUCING DARK BROWN LOOSE STOOL, INCISIONS WITHOUT REDNESS, SWELLING, OR DRAINAGE.
--- NOTE | 2019-05-28 07:00 | NUR ---
REPORT FROM ANNA JOHNS. ASSUMED PT CARE. PT RESTING IN POSITION OF COMFORT.
--- NOTE | 2019-05-28 07:10 | NUR ---
LAB TO ROOM FOR DRAW.
[2019-05-28 07:30] LABS: BASOPHILS ABSOLUTE AUTO 0.06 K/mm3 (0.00-0.23); BASOPHILS PERCENT AUTO 1 % (0-2); EOSINOPHILS ABSOLUTE AUTO 0.27 K/mm3 (0.00-0.68); EOSINOPHILS PERCENT AUTO 3 % (0-6); Hematocrit 33.8 % (33.0-51.0); Hemoglobin 10.8 g/dL (11.5-16.0); IMMATURE GRAN ABSOLUTE AUTO 0.13 K/mm3 (0.00-0.10); IMMATURE GRAN PERCENT AUTO 1 % (0-1); LYMPHOCYTES ABSOLUTE AUTO 1.47 K/mm3 (0.84-5.20); LYMPHOCYTES PERCENT AUTO 15 % (21-46); MONOCYTES ABSOLUTE AUTO 0.73 K/mm3 (0.16-1.47); MONOCYTES PERCENT AUTO 8 % (4-13); Mean Corpuscular HGB 30.2 pg (26.0-34.0); Mean Platelet Volume 9.6 fL (9.1-12.4); NEUTROPHILS ABSOLUTE AUTO 6.92 K/mm3 (1.96-9.15); NEUTROPHILS PERCENT AUTO 72 % (41-73); Platelet Count 352 K/mm3 (150-400); RDW Coefficient Variation 17.3 % (11.7-14.2); RDW Standard Deviation 59.5 fL (35.1-46.3); Red Blood Cell Count 3.58 M/mm3 (3.80-5.20); White Blood Cell Count 9.58 K/mm3 (4.00-11.30)
[2019-05-28 07:36] LABS: Mean Corpuscular Volume 94 fL (80-100)
[2019-05-28 07:47] LABS: Anion Gap 5 mmol/L (6-16); Blood Urea Nitrogen 18 mg/dL (8-24); Bun/Creatinine Ratio 22.2 (12.0-20.0); CO2, Blood 26 mmol/L (21-32); Calcium, Blood 8.2 mg/dL (8.5-10.1); Chloride, Blood 109 mmol/L (98-108); Creatinine, Blood 0.81 mg/dL (0.40-1.00); Glomerular Filtration Rate >60 (60-); Glucose, Blood 56 mg/dL (70-99); Sodium, Blood 140 mmol/L (136-145)
[2019-05-28 08:27] LABS: Potassium, Blood 5.6 mmol/L (3.5-5.5)
--- NOTE | 2019-05-28 08:31 | NUR ---
BREAKFAST TRAY DELIVERED. PT SITTING UP IN BED.
--- NOTE | 2019-05-28 09:05 | NUR ---
PT ASSISTED TO CHAIR TO SIT UP FOR PT. PT BED SATURATED, 250ML LOOSE BROWN STOOL FROM COLOSTOMY. LINENS CHANGED. NEW GOWN PLACED. PT UP TO CHAIR.
--- NOTE | 2019-05-28 09:26 | NUR ---
PT MEDICATED PER EMAR.
--- NOTE | 2019-05-28 09:59 | NUR ---
IV TO LEFT AC INFILTRATED. PT STATES "IT WAS BURNING" ATTEMPT X2 FOR NEW IV ACCESS.
--- NOTE | 2019-05-28 10:50 | NUR ---
ASSISTED PT BACK TO BED. WARM BLANKET PROVIDED.
--- NOTE | 2019-05-28 11:21 | NUR ---
NEW IV TO LEFT AC STARTED BY A.BISHOP JOHNS WITH U/S. IVF RESUMED.
--- NOTE | 2019-05-28 11:58 | NUR ---
DIETARY TO ROOM FOR CONSULT.
--- NOTE | 2019-05-28 12:38 | NUR ---
PT SITTING UP IN BED, EATING LUNCH.
--- NOTE | 2019-05-28 13:20 | NUR ---
PT ASSISTED BACK TO BED. DENIES NEEDS.
--- NOTE | 2019-05-28 14:19 | NUR ---
DR MAY AT BEDSIDE.
--- NOTE | 2019-05-28 16:48 | NUR ---
COLOSTOMY DEVICE CHANGED. BED LINENS CHANGED DUE TO INCONTINENCE. WARM BLANKET PROVIDED..
--- NOTE | 2019-05-28 17:17 | NUR ---
CBG 153. DINNER TRAY PROVIDED.
--- NOTE | 2019-05-28 18:54 | NUR ---
VSS. PT STATES SHES "BORED HELL AND HAVE NO IDEA WHATS GOING ON" EXPLAINED TO PT WHY SHE IS ADMITTED TO HOSP. EXPLAINED THAT STAFF ARE TRYING TO STABALIZE BLOOD SUGARS.
[2019-05-29 04:18] LABS: BASOPHILS ABSOLUTE AUTO 0.06 K/mm3 (0.00-0.23); BASOPHILS PERCENT AUTO 1 % (0-2); EOSINOPHILS ABSOLUTE AUTO 0.29 K/mm3 (0.00-0.68); EOSINOPHILS PERCENT AUTO 4 % (0-6); Hematocrit 35.4 % (33.0-51.0); IMMATURE GRAN PERCENT AUTO 1 % (0-1); LYMPHOCYTES ABSOLUTE AUTO 1.42 K/mm3 (0.84-5.20); LYMPHOCYTES PERCENT AUTO 19 % (21-46); MONOCYTES ABSOLUTE AUTO 0.72 K/mm3 (0.16-1.47); MONOCYTES PERCENT AUTO 10 % (4-13); Mean Corpuscular HGB 30.1 pg (26.0-34.0); Mean Corpuscular HGB Conc 31.1 g/dL (31.5-36.5); Mean Platelet Volume 9.5 fL (9.1-12.4); NEUTROPHILS ABSOLUTE AUTO 4.77 K/mm3 (1.96-9.15); NEUTROPHILS PERCENT AUTO 65 % (41-73); Platelet Count 348 K/mm3 (150-400); RDW Coefficient Variation 17.4 % (11.7-14.2); RDW Standard Deviation 61.1 fL (35.1-46.3); Red Blood Cell Count 3.66 M/mm3 (3.80-5.20); White Blood Cell Count 7.36 K/mm3 (4.00-11.30)
[2019-05-29 04:19] LABS: Mean Corpuscular Volume 97 fL (80-100)
[2019-05-29 04:38] LABS: Anion Gap 4 mmol/L (6-16); Blood Urea Nitrogen 13 mg/dL (8-24); Bun/Creatinine Ratio 15.4 (12.0-20.0); CO2, Blood 27 mmol/L (21-32); Calcium, Blood 8.5 mg/dL (8.5-10.1); Chloride, Blood 104 mmol/L (98-108); Creatinine, Blood 0.84 mg/dL (0.40-1.00); Glomerular Filtration Rate >60 (60-); Glucose, Blood 186 mg/dL (70-99); Phosphorus, Blood 3.3 mg/dL (2.5-4.9); Potassium, Blood 4.4 mmol/L (3.5-5.5); Sodium, Blood 135 mmol/L (136-145)
--- NOTE | 2019-05-29 06:16 | NUR ---
PT RESTS QUIETLY THROUGHOUT SHIFT, DENIES PAIN HOWEVER ALSO STATES THAT "TAILBONE IS SORE" RELATED TO FALL AT HOME ON THURSDAY NOC. UP TO VOID WITH STANDBY ASSIST AND TOLERATES WELL HOWEVER IS ALSO NOTED TO HAVE INCONTINENT VOIDS INTERMITTENTLY WELL. BLOOD GLUCOSE LEVELS HAVE IMPROVED AND ARE MAINTAINING NEAR 180 THROUGHOUT SHIFT WITH D10 INFUSING AT 100 ML/HR.
--- NOTE | 2019-05-29 07:00 | NUR ---
REPORT FROM ANNA JOHNS. ASSUMED PT CARE. PT SLEEPING. AGATHA.
--- NOTE | 2019-05-29 07:50 | NUR ---
VSS. PT ASSISTED TO SITTING UP IN BED FOR BREAKFAST. CBG 185. PT C/O PAIN TO BOTTOM 11/07. PT ABLE TO TURN SIDE TO SIDE IN BED. ASSESSMENT CHARTED. BREAKFAST PROVIDED.
--- NOTE | 2019-05-29 08:50 | NUR ---
PT MEDICATED WITH SCHEDULED MEDS PER EMAR. NEW BAG IVF STARTED. PT RECLINED PER REQUEST. POOR APPETITE THIS AM. TRAY CLEARED. PT DENIES NEED TO VOID AT THIS TIME.
--- NOTE | 2019-05-29 10:14 | NUR ---
PT RESTING. SPOKE WITH PT SPOUSE ON THE PHONE. UPDATE PROVIDED.
--- NOTE | 2019-05-29 11:45 | NUR ---
BEDBATH DONE, NEW LINENS TO BED, NEW GOWN PROVIDED, NEW MEPILEX APPLIED TO BUTTOCKS (FOR COMFORT, NO WOUND). PT UP TO CHAIR AT THIS TIME AFTER USING RESTROOM.
--- NOTE | 2019-05-29 11:58 | NUR ---
PT SITTING UP IN CHAIR. LUNCH PROVIDED. AT BEDSIDE.
--- NOTE | 2019-05-29 13:20 | NUR ---
PT STATES FEELING FULL. MINIMAL OUTPUT FROM COLOSTOMY TODAY. PRN STOOL SOFTNERS GIVEN.
--- NOTE | 2019-05-29 13:23 | NUR ---
PT VOMITING. APPROX 250ML EMESIS.
--- NOTE | 2019-05-29 13:31 | NUR ---
PT MEDICATED WITH ZOFRAN. WILL CONT TO MONITOR FOR FURTHER EMESIS.
--- NOTE | 2019-05-29 14:30 | NUR ---
DR MAY TO ROOM. PLAN TO CT ABD DUE TO CHANGE IN COLOSTOMY OUTPUT, SCANDT ABD TENDERNESS AND N/V. PLAN TO CHANGE IVF AND DIET ORDER.
--- NOTE | 2019-05-29 15:46 | NUR ---
IVF STARTED PER EMAR. AWAITING IMAGING STAFF TO COME GET PT FOR CT.
--- NOTE | 2019-05-29 16:35 | NUR ---
PT MEDICATED WITH ZOFRAN PRIOR TO STARTING HER ON DRINKING ORAL CONTRAST. EXPLAINED PLAN TO PT, PT TO ATTEMPT TO DRINK ORAL CONTRAST FOR CT SCAN AROUND 1830. PT AGREEABLE.
--- NOTE | 2019-05-29 17:25 | NUR ---
VSS, BLOOD GLUCOSE 159. 120ML BROWNISH EMESIS. IMAGING STAFF NOTIFIED OF PT NOT ABLE TO FINISH CONTRAST.
--- NOTE | 2019-05-29 17:32 | NUR ---
PT TO IMAGING.
--- NOTE | 2019-05-29 17:53 | NUR ---
PT RETURNED FROM IMAGING. VISITOR AT BEDSIDE.
--- NOTE | 2019-05-29 18:50 | NUR ---
ASSISTED PT TO TOILET AND BACK TO BED. PT SITTING BEDSIDE WITH LEGS DANGLING. CALL LIGHT IN REACH. WARM BLANKET PROVIDED.
--- NOTE | 2019-05-29 21:32 | NUR ---
PT HAS CONTINUING NAUSEA FOLLOWING ZOFRAN ADMINISTRATION, DISCUSSED OPTIONS FOR CONTROL OF NAUSEA/VOMITING WITH SMALL BOWEL OBSTRUCTION. PT DECLINES FURTHER INTERVENTION AT THIS TIME, WILL CONTINUE TO MONITOR.
--- NOTE | 2019-05-30 02:15 | NUR ---
PT AMBULATES OUT TO NURSE'S STATION AND STATES "I NEED MY SUGAR CHECKED, I'M FEELING PUNY" ASSISTED BACK TO BED, CBG AT THIS TIME IS 166. PT REQUESTS WATER PO, DISCUSSED NPO STATUS WELL EFFECT OF PO INTAKE WITH SMALL BOWEL OBSTRUCTION, SHE IS VERBALIZES UNDERSTANDING FOLLOWED BY IMMEDIATELY REQUESTING CRACKERS, REMINDED PT OF NPO STATUS AND SHE STATES "OH, YEAH!" AND LAUGHS. WILL MONITOR.
--- NOTE | 2019-05-30 06:09 | NUR ---
PT WITH FREQUENT EMESIS THIS SHIFT AND ONGOING NAUSEA. ZOFRAN 4 MG IV HAS BEEN ADMINISTERED EVERY 4 HOURS NEEDED FOR A TOTAL OF 3 DOSES THIS SHIFT WITHOUT IMPROVEMENT. DID DISCUSS PLACING CALL TO PHYSICIAN REGARDING ONGOING NAUSEA AND VOMITING WITH PATIENT WELL POSSIBILITY OF NEED FOR NG TUBE SECONDARY TO SMALL BOWEL OBSTRUCTION. PT STATES THAT SHE HAS HAD NG TUBES IN THE PAST AND THAT SHE WOULD REFUSE ONE IF ORDERED AT THIS TIME. SCANT DARK BROWN LIQUID OUTPUT FROM COLOSTOMY THIS SHIFT, NO FLATUS NOTED, BOWEL TONES CONTINUE MARKEDLY HYPOACTIVE AND NEAR ABSENT AT TIMES, ABD IS DISTENDED AND SOFT THROUGHOUT SHIFT. BLOOD GLUCOSE LEVELS HAVE IMPROVED, REMAIN MID 100S THIS SHIFT, NO SLIDING SCALE COVERAGE HAS BEEN INDICATED.
[2019-05-30 06:10] LABS: BASOPHILS ABSOLUTE AUTO 0.05 K/mm3 (0.00-0.23); BASOPHILS PERCENT AUTO 0 % (0-2); EOSINOPHILS ABSOLUTE AUTO 0.04 K/mm3 (0.00-0.68); EOSINOPHILS PERCENT AUTO 0 % (0-6); Hematocrit 37.8 % (33.0-51.0); IMMATURE GRAN ABSOLUTE AUTO 0.12 K/mm3 (0.00-0.10); IMMATURE GRAN PERCENT AUTO 1 % (0-1); LYMPHOCYTES ABSOLUTE AUTO 0.97 K/mm3 (0.84-5.20); LYMPHOCYTES PERCENT AUTO 8 % (21-46); MONOCYTES PERCENT AUTO 5 % (4-13); Mean Corpuscular HGB 29.6 pg (26.0-34.0); Mean Corpuscular HGB Conc 31.7 g/dL (31.5-36.5); Mean Platelet Volume 9.4 fL (9.1-12.4); NEUTROPHILS ABSOLUTE AUTO 11.11 K/mm3 (1.96-9.15); NEUTROPHILS PERCENT AUTO 86 % (41-73); Platelet Count 432 K/mm3 (150-400); RDW Coefficient Variation 16.7 % (11.7-14.2); RDW Standard Deviation 57.4 fL (35.1-46.3); Red Blood Cell Count 4.06 M/mm3 (3.80-5.20); White Blood Cell Count 12.89 K/mm3 (4.00-11.30)
[2019-05-30 06:12] LABS: Mean Corpuscular Volume 93 fL (80-100)
[2019-05-30 06:30] LABS: Albumin, Blood 2.4 g/dL (3.4-5.0); Anion Gap 7 mmol/L (6-16); Blood Urea Nitrogen 13 mg/dL (8-24); Bun/Creatinine Ratio 14.1 (12.0-20.0); CO2, Blood 25 mmol/L (21-32); Calcium, Blood 9.2 mg/dL (8.5-10.1); Chloride, Blood 99 mmol/L (98-108); Creatinine, Blood 0.92 mg/dL (0.40-1.00); Glomerular Filtration Rate >60 (60-); Glucose, Blood 164 mg/dL (70-99); Magnesium, Blood 1.5 mg/dL (1.6-2.4); Phosphorus, Blood 4.2 mg/dL (2.5-4.9); Potassium, Blood 4.8 mmol/L (3.5-5.5); Sodium, Blood 131 mmol/L (136-145); Troponin I <0.015 ng/mL (0.000-0.040)
--- NOTE | 2019-05-30 07:30 | NUR ---
Recieved report from Courtney JOHNS. Patient laying supine in bed and is on RA and sats upper 90%'s. She is able to communicate her needs verbally and uses call light. When in doing VS she was having visual hallucinations, grabbing at things in the air. When asking what she was grabbing at, no comments. She repositions self in bed for comfort. She states she is nauseated and has Phenergren ordered. No emesis for me. She has 18ga IV in LAC and dressing intact and site WNL's and is infusing NS with 20meq of K at 50ml/hr. She is hypertensive 190 and will medicate per OCT. RUBY
--- NOTE | 2019-05-30 09:30 | NUR ---
She is up with one assist to bathroom. She tolerated med with sips of water. Ostomy LLQ and has little dark brown liquid output, stoma pink, dressing intact. She is still figiting with her covers and when asked she not sure what she is doing. She remains on RA and deneis any breathing issues.
--- NOTE | 2019-05-30 12:15 | NUR ---
is here at bedside. CBG 179 and no coverage needed. VSS. No new significant changes.
--- NOTE | 2019-05-30 14:39 | NUR ---
went home for a little bit. Patient has been stating that she has been seeing double and tongue has gone numb. When checking she has feeling to her tongue and can read print with glasses.
--- NOTE | 2019-05-30 17:01 | NUR ---
Spiritual Care inital note: Mrs. Grant seemed pleasantly confused when I visited. The was picked at her blankets when I entered room. Her spouse was at bedside. She told me of her many health battles and smiles easily. He corrected her when she got some of her story confused. They were appreciaitve of prayer and spiritual encouragement. I will remain available.
--- NOTE | 2019-05-30 17:40 | NUR ---
Dr Rico and customer experience intern came by and ordered SBFT and will re see patient after results. Patient has remained NPo. She was up again with SBA and uses stool to get out of bed. Changed linen and she stated she did not need another pull up. VSS. She continues to rest on RA and sast mid to upper 90%'s. Called covering Dr horan did not see order of Clinimix and Dr Fulton stated, awaiting order.
--- NOTE | 2019-05-30 18:38 | NUR ---
Patient had 100ml of liquid/soft stool dark brown in color. Change Ostomy dressing and gave quick bath and changed linen. Called Dr Rico and demarcus SBFT and start Cl Liq Diet.
[2019-05-31 06:40] LABS: BASOPHILS ABSOLUTE AUTO 0.06 K/mm3 (0.00-0.23); BASOPHILS PERCENT AUTO 1 % (0-2); EOSINOPHILS ABSOLUTE AUTO 0.16 K/mm3 (0.00-0.68); EOSINOPHILS PERCENT AUTO 2 % (0-6); Hematocrit 34.1 % (33.0-51.0); Hemoglobin 11.1 g/dL (11.5-16.0); IMMATURE GRAN ABSOLUTE AUTO 0.08 K/mm3 (0.00-0.10); IMMATURE GRAN PERCENT AUTO 1 % (0-1); LYMPHOCYTES ABSOLUTE AUTO 1.12 K/mm3 (0.84-5.20); LYMPHOCYTES PERCENT AUTO 12 % (21-46); MONOCYTES ABSOLUTE AUTO 0.82 K/mm3 (0.16-1.47); MONOCYTES PERCENT AUTO 9 % (4-13); Mean Corpuscular HGB 30.5 pg (26.0-34.0); Mean Corpuscular HGB Conc 32.6 g/dL (31.5-36.5); Mean Corpuscular Volume 94 fL (80-100); Mean Platelet Volume 9.3 fL (9.1-12.4); NEUTROPHILS ABSOLUTE AUTO 7.16 K/mm3 (1.96-9.15); NEUTROPHILS PERCENT AUTO 76 % (41-73); Platelet Count 249 K/mm3 (150-400); RDW Coefficient Variation 16.7 % (11.7-14.2); RDW Standard Deviation 56.7 fL (35.1-46.3); Red Blood Cell Count 3.64 M/mm3 (3.80-5.20)
--- NOTE | 2019-05-31 06:43 | NUR ---
PT RESTS QUIETLY THROUGHOUT SHIFT, COLOSTOMY APPLIANCE CHANGED AT HS SECONDARY TO LARGE QUANTITY OF GREEN LIQUID STOOL LEAKING FROM UNDER WAX RING PORTION OF APPLIANCE, PT TOLERATED WELL, OF THIS TIME COLOSTOMY APPLIANCE REMAINS INTACT, MINIMAL AMOUNT OF LIQUID STOOL HAS BEEN NOTED FROM OSTOMY SINCE APPLIANCE CHANGE. PT CONTINUES TO DENY NAUSEA THIS AM AND STATES THAT SHE FEELS THOUGH SHE WAS ABLE TO REST WELL. CBG THIS SHIFT 90-120S. OTHERWISE NO ACUTE CHANGES.
[2019-05-31 07:05] LABS: Alanine Aminotransfer (ALT/SGP 12 U/L (12-78); Albumin/Globulin Ratio 0.6 (0.8-1.8); Alk Phos 64 U/L (50-136); Anion Gap 5 mmol/L (6-16); Aspartate Aminotrans (AST/SGOT 16 U/L (12-37); Bilirubin, Total 0.2 mg/dL (0.1-1.0); Blood Urea Nitrogen 16 mg/dL (8-24); Bun/Creatinine Ratio 17.4 (12.0-20.0); CO2, Blood 23 mmol/L (21-32); Calcium, Blood 8.3 mg/dL (8.5-10.1); Chloride, Blood 107 mmol/L (98-108); Creatinine, Blood 0.92 mg/dL (0.40-1.00); Globulin, Blood 3.6 g/dL (2.2-4.0); Glomerular Filtration Rate >60 (60-); Glucose, Blood 96 mg/dL (70-99); Magnesium, Blood 1.6 mg/dL (1.6-2.4); Potassium, Blood 4.8 mmol/L (3.5-5.5); Sodium, Blood 135 mmol/L (136-145); Total Protein, Blood 5.6 g/dL (6.4-8.2)
--- NOTE | 2019-05-31 09:40 | NUR ---
Recieved report from Courtney JOHNS. arrived and awoke patient. She is awake in bed and on RA and sats mid to upper 90%'s. She is alert and oriented and is able to communicate her needs. I do not see ant visual hallucination that she had yesterday. She has 18ga IV in LAC and dressing intact and infusing Clinimix at 75ml/hr. She has colostomy LLQ with small amount of liquid stool. Dr Fulton increased diet to mechanical soft and probable discharge tomorrow.
--- NOTE | 2019-05-31 12:37 | NUR ---
PT worked with patient and is currently up in chair. VSS. She has been tolerating meds and liquids and advance lunch to [facility] soft. has gone for a little bit. She called to reposition off butt. Denies any other needs.
--- NOTE | 2019-05-31 15:30 | NUR ---
[facility] AND IS WANTING TO GO BACK TO BED. SHE WAS A SBA BACK TO BED AFTER LINEN CHANGE. SHE WENT TO BATHROOM FIRST AND 200ML CLEAR YELLOW URINE. VSS. NO OTHER SIGNIFICANT CHANGES.
--- NOTE | 2019-05-31 18:00 | NUR ---
PATIENT ATE SOFT BITE DIETR AND TOLERATED WELL. EMPTIED 400ML OF LIQUID/PASTY STOOL FROM CHOLSTOMY. GAVE REPORT TO MED RN FOR ROOM 304 AND PATIENT WANTS TO FINISH EATING BEFORE GOING UP. LAC IV LEAKING AND PLACED NEW RFA IV.
--- NOTE | 2019-05-31 19:00 | NUR ---
Assumed care of patient Received report from PLATE TAKE OUT WORKER James. Henley/Vinicio. Pt settled and oriented to room. Pt to be on clinimix @ 75mls. Will pass on report to oncoming RN.
[2019-06-01 04:50] LABS: BASOPHILS ABSOLUTE AUTO 0.04 K/mm3 (0.00-0.23); BASOPHILS PERCENT AUTO 1 % (0-2); EOSINOPHILS ABSOLUTE AUTO 0.18 K/mm3 (0.00-0.68); EOSINOPHILS PERCENT AUTO 2 % (0-6); Hematocrit 33.2 % (33.0-51.0); Hemoglobin 10.4 g/dL (11.5-16.0); IMMATURE GRAN ABSOLUTE AUTO 0.06 K/mm3 (0.00-0.10); IMMATURE GRAN PERCENT AUTO 1 % (0-1); LYMPHOCYTES ABSOLUTE AUTO 1.24 K/mm3 (0.84-5.20); LYMPHOCYTES PERCENT AUTO 16 % (21-46); MONOCYTES ABSOLUTE AUTO 0.86 K/mm3 (0.16-1.47); MONOCYTES PERCENT AUTO 11 % (4-13); Mean Corpuscular HGB Conc 31.3 g/dL (31.5-36.5); Mean Corpuscular Volume 96 fL (80-100); Mean Platelet Volume 9.8 fL (9.1-12.4); NEUTROPHILS ABSOLUTE AUTO 5.44 K/mm3 (1.96-9.15); NEUTROPHILS PERCENT AUTO 70 % (41-73); Platelet Count 288 K/mm3 (150-400); RDW Coefficient Variation 16.9 % (11.7-14.2); RDW Standard Deviation 58.9 fL (35.1-46.3); Red Blood Cell Count 3.47 M/mm3 (3.80-5.20); White Blood Cell Count 7.82 K/mm3 (4.00-11.30)
--- NOTE | 2019-06-01 04:57 | NUR ---
SHIFT SUMMARY- PT. A&OX3. 1 ASSIST TO BATHROOM, CALLS APPROPRIATELY. COLOSTOMY TO Q. PT. PASSING LIQUID STOOL. DENIED ANY C/O PAIN/DISCOMFORT OR NA. IV FLUIDS INFUSING. CALL LIGHT WITHIN REACH AND SIDE RAILS UP X2. WILL CONT TO MONITOR.
[2019-06-01 05:13] LABS: Albumin, Blood 2.2 g/dL (3.4-5.0); Albumin/Globulin Ratio 0.6 (0.8-1.8); Bilirubin, Total 0.2 mg/dL (0.1-1.0); Bun/Creatinine Ratio 19.2 (12.0-20.0); Calcium, Blood 8.7 mg/dL (8.5-10.1); Creatinine, Blood 0.99 mg/dL (0.40-1.00); Globulin, Blood 3.8 g/dL (2.2-4.0); Potassium, Blood 4.4 mmol/L (3.5-5.5)
[2019-06-01] MEDS ORDERED: Bactrim Ds Tab1 EACH PO (14:51)
[2019-06-01] MEDS ORDERED: ACET325 PO (15:09)
--- NOTE | 2019-06-01 15:35 | NUR ---
DISCHARGED TO HOME WITH INSTRUCTIONS AND BELONGINGS. HER COLOSTOMY HAS PUT OUT LIQUID STOOL AND FLATUS TODAY. NO COMPLAINTS. VERY GLAD TO BE GOING HOME.
== END 2019-06-01 15:32 | disposition home or self-care (01) | DRG 638 ==
LOC: ER 18:09 → ICUE 18:10 → ERHOLD 18:10 → ICUE 23:14 → MEDS 05-31 18:48
PROVIDERS: Emergency Medicine; Family Medicine; Internal Medicine Gastroenterology; Nurse Practitioner Acute Care; ADMIT Internal Medicine
DX: E11.649 Type 2 diabetes mellitus with hypoglycemia without coma (principal); K56.51 Intestinal adhesions [bands], with partial obstruction; N39.0 Urinary tract infection, site not specified; I50.32 Chronic diastolic (congestive) heart failure; E87.6 Hypokalemia; B96.20 Unspecified Escherichia coli [E. coli] as the cause of diseases classified elsewhere; R82.71 Bacteriuria; G92 Toxic encephalopathy; W18.30XA Fall on same level, unspecified, initial encounter; S30.0XXA Contusion of lower back and pelvis, initial encounter; Z93.3 Colostomy status; I11.0 Hypertensive heart disease with heart failure; K21.9 Gastro-esophageal reflux disease without esophagitis; I25.10 Atherosclerotic heart disease of native coronary artery without angina pectoris; F03.90 Unspecified dementia, unspecified severity, without behavioral disturbance, psychotic disturbance, mood disturbance, and anxiety; Z95.5 Presence of coronary angioplasty implant and graft; E78.5 Hyperlipidemia, unspecified; Z86.73 Personal history of transient ischemic attack (TIA), and cerebral infarction without residual deficits; Z86.718 Personal history of other venous thrombosis and embolism; Z79.01 Long term (current) use of anticoagulants; E11.65 Type 2 diabetes mellitus with hyperglycemia; I25.2 Old myocardial infarction; E83.42 Hypomagnesemia
CPT/HCPCS: 36415; 70450; 70496; 70498; 74177; 80048; 80053; 80069; 81001; 82947; 83605; 83735; 83880; 84100; 84145; 84484; 85025; 85610; 87040; 87077; 87086; 87186; 93005; 93010; 96361; 96365; 96366; 96368; 96374-59; 96375-59; 96376-59; 97116; 97162; 97530; 99285-25; A9270; G0378; G0480; J0696; J1650; J1815; J2405; J2550; J3475; J3480; J7042; J7050; J7060; J7799; P9612; Q9967

== ENCOUNTER 2021-08-23 11:03 | Emergency (ER) | payer MEDICARE ==
[~2021-08-23] VITALS: Ht 139.7 cm; Wt 68.0 kg
[~2021-08-23 11:03] MED LIST changes: +ACET325 PO; +Bactrim Ds Tab1 EACH PO; +OMEP20ER PO
[2021-08-23 11:47] LABS: BASOPHILS ABSOLUTE AUTO 0.03 K/mm3 (0.00-0.23); BASOPHILS PERCENT AUTO 0 % (0-2); EOSINOPHILS ABSOLUTE AUTO 0.01 K/mm3 (0.00-0.68); EOSINOPHILS PERCENT AUTO 0 % (0-6); Hematocrit 39.7 % (33.0-51.0); Hemoglobin 12.8 g/dL (11.5-16.0); IMMATURE GRAN ABSOLUTE AUTO 0.06 K/mm3 (0.00-0.10); IMMATURE GRAN PERCENT AUTO 1 % (0-1); LYMPHOCYTES ABSOLUTE AUTO 1.39 K/mm3 (0.84-5.20); LYMPHOCYTES PERCENT AUTO 13 % (21-46); MONOCYTES ABSOLUTE AUTO 1.02 K/mm3 (0.16-1.47); MONOCYTES PERCENT AUTO 10 % (4-13); Mean Corpuscular HGB 31.3 pg (26.0-34.0); Mean Corpuscular HGB Conc 32.2 g/dL (31.5-36.5); Mean Corpuscular Volume 97 fL (80-100); Mean Platelet Volume 10.8 fL (9.1-12.4); NEUTROPHILS ABSOLUTE AUTO 8.12 K/mm3 (1.96-9.15); NEUTROPHILS PERCENT AUTO 76 % (41-73); Platelet Count 220 K/mm3 (150-400); RDW Standard Deviation 49.8 fL (35.1-46.3); Red Blood Cell Count 4.09 M/mm3 (3.80-5.20); White Blood Cell Count 10.63 K/mm3 (4.00-11.30)
[2021-08-23] MEDS ORDERED: Norco 5-325 Ta1 EACH PO (11:59)
[2021-08-23] MEDS ORDERED: Cranberry400 MG PO (12:01)
[2021-08-23] MEDS ORDERED: Vitamin B-Comp1 EACH PO (12:01)
[2021-08-23] MEDS ORDERED: MULVITA PO (12:01)
[2021-08-23 12:17] LABS: Albumin, Blood 3.2 g/dL (3.4-5.0); Albumin/Globulin Ratio 0.8 (0.8-1.8); Bilirubin, Total 0.8 mg/dL (0.1-1.0); Bun/Creatinine Ratio 20.6 (12.0-20.0); Creatinine, Blood 0.97 mg/dL (0.40-1.00); Globulin, Blood 3.9 g/dL (2.2-4.0); Total Protein, Blood 7.1 g/dL (6.4-8.2); Troponin I 0.021 ng/mL (0.000-0.040)
== END 2021-08-23 13:46 | disposition home or self-care (01) ==
LOC: ER 11:03
PROVIDERS: Physician Assistant
DX: I48.91 Unspecified atrial fibrillation (principal); R07.89 Other chest pain; E11.9 Type 2 diabetes mellitus without complications; I11.0 Hypertensive heart disease with heart failure; I50.9 Heart failure, unspecified; I25.10 Atherosclerotic heart disease of native coronary artery without angina pectoris; Z88.8 Allergy status to other drugs, medicaments and biological substances; Z79.899 Other long term (current) drug therapy
CPT/HCPCS: 36415; 71046; 80053; 84484; 85025; 93005; 93010

== ENCOUNTER 2021-09-03 23:50 | Inpatient (IN) | payer MEDICARE, OTHER ==
[~2021-09-03] VITALS: Ht 139.7 cm; Wt 71.3 kg
[~2021-09-03 23:50] MED LIST changes: +Cranberry400 MG PO; -Ferrous Sulfat325 M2 PO; +METO50 PO; -METO50ER PO; +MULVITA PO; +Vitamin B-Comp1 EACH PO
[2021-09-04 00:45] LABS: BASOPHILS ABSOLUTE AUTO 0.05 K/mm3 (0.00-0.23); BASOPHILS PERCENT AUTO 1 % (0-2); EOSINOPHILS ABSOLUTE AUTO 0.25 K/mm3 (0.00-0.68); EOSINOPHILS PERCENT AUTO 4 % (0-6); Hematocrit 39.8 % (33.0-51.0); Hemoglobin 12.4 g/dL (11.5-16.0); IMMATURE GRAN ABSOLUTE AUTO 0.09 K/mm3 (0.00-0.10); IMMATURE GRAN PERCENT AUTO 1 % (0-1); LYMPHOCYTES ABSOLUTE AUTO 2.22 K/mm3 (0.84-5.20); LYMPHOCYTES PERCENT AUTO 32 % (21-46); MONOCYTES ABSOLUTE AUTO 0.54 K/mm3 (0.16-1.47); MONOCYTES PERCENT AUTO 8 % (4-13); Mean Corpuscular HGB 30.6 pg (26.0-34.0); Mean Corpuscular HGB Conc 31.2 g/dL (31.5-36.5); Mean Corpuscular Volume 98 fL (80-100); Mean Platelet Volume 10.2 fL (9.1-12.4); NEUTROPHILS ABSOLUTE AUTO 3.74 K/mm3 (1.96-9.15); NEUTROPHILS PERCENT AUTO 54 % (41-73); Platelet Count 370 K/mm3 (150-400); RDW Coefficient Variation 14.6 % (11.7-14.2); RDW Standard Deviation 52.7 fL (35.1-46.3); Red Blood Cell Count 4.05 M/mm3 (3.80-5.20); White Blood Cell Count 6.89 K/mm3 (4.00-11.30)
[2021-09-04 01:12] LABS: Magnesium, Blood 1.4 mg/dL (1.6-2.4)
[2021-09-04 01:13] LABS: Anion Gap 8 mmol/L (6-16); Blood Urea Nitrogen 19 mg/dL (8-24); Bun/Creatinine Ratio 18.8 (12.0-20.0); CO2, Blood 21 mmol/L (21-32); Calcium, Blood 9.5 mg/dL (8.5-10.1); Chloride, Blood 112 mmol/L (98-108); Creatinine, Blood 1.01 mg/dL (0.40-1.00); Glomerular Filtration Rate 52 (60-); Glucose, Blood 194 mg/dL (70-99); Potassium, Blood 4.3 mmol/L (3.5-5.5); Sodium, Blood 141 mmol/L (136-145); Troponin I <0.015 ng/mL (0.000-0.040)
[2021-09-04 01:26] LABS: Influenza A, PCR NEGATIVE (NEGATIVE); Influenza B, PCR NEGATIVE (NEGATIVE); Resp Syncytial Virus, PCR NEGATIVE (NEGATIVE); SARS-Cov-2 (COVID-19) PCR, MMC NEGATIVE (NEGATIVE)
[2021-09-04 13:46] LABS: Magnesium, Blood 2.6 mg/dL (1.6-2.4); Troponin I 0.029 ng/mL (0.000-0.040)
--- NOTE | 2021-09-04 15:35 | NUR ---
ECHOCARDIOGRAM COMPLETE
[2021-09-04] MEDS ORDERED: OMEP20ER PO (15:51)
--- NOTE | 2021-09-04 17:39 | NUR ---
ARRIVES FROM E.R. ALERT. ORIENTED.ABLE TO STAND AND MOVE TO MED FLOOR BED. DENIES ANY DISCOMFORT OR PAIN. MADE AWARE OF ONE DAY STRESS TEST FOR TOMORROW AND WRITTEN ON BOARD.PLEASANT. COOPERATIVE. ABLE TO MAKE NEEDS KNOWN. TELE ON AND PER TECH AFIB AT 100. IV X 2 BILATERAL ARMS. WCTM
--- NOTE | 2021-09-05 05:49 | NUR ---
SHIFT SUMMARY PT IS AN 81 Y/O FEMALE, ADMITTED FOR SYMPTOMATIC AFIB WITH RVR. SHE IS A&O X 4, SBA IN THE ROOM. TELE SHOWED AFIB IN THE 80S. VITAL SIGNS OTHERWISE STABLE. PT WAS MEDICATED FOR A VARGAS WITH PRN TYLENOL. NO OTHER C/O ACUTE PAIN, NAUSEA OR SOB. NO OTHER ACUTE CHANGES IN PT CONDITION NOTED DURING THE NIGHT. WILL CONTINUE TO MONITOR AND TREAT PER EMAR UNTIL HAND OFF TO DAY SHIFT RN.
[2021-09-05 08:01] LABS: BASOPHILS ABSOLUTE AUTO 0.04 K/mm3 (0.00-0.23); BASOPHILS PERCENT AUTO 1 % (0-2); EOSINOPHILS ABSOLUTE AUTO 0.23 K/mm3 (0.00-0.68); EOSINOPHILS PERCENT AUTO 4 % (0-6); Hematocrit 39.2 % (33.0-51.0); Hemoglobin 12.2 g/dL (11.5-16.0); IMMATURE GRAN ABSOLUTE AUTO 0.05 K/mm3 (0.00-0.10); IMMATURE GRAN PERCENT AUTO 1 % (0-1); LYMPHOCYTES ABSOLUTE AUTO 1.98 K/mm3 (0.84-5.20); LYMPHOCYTES PERCENT AUTO 31 % (21-46); MONOCYTES ABSOLUTE AUTO 0.54 K/mm3 (0.16-1.47); MONOCYTES PERCENT AUTO 8 % (4-13); Mean Corpuscular HGB 30.1 pg (26.0-34.0); Mean Corpuscular HGB Conc 31.1 g/dL (31.5-36.5); Mean Corpuscular Volume 97 fL (80-100); Mean Platelet Volume 9.8 fL (9.1-12.4); NEUTROPHILS ABSOLUTE AUTO 3.56 K/mm3 (1.96-9.15); NEUTROPHILS PERCENT AUTO 56 % (41-73); Platelet Count 329 K/mm3 (150-400); RDW Standard Deviation 52.4 fL (35.1-46.3); Red Blood Cell Count 4.05 M/mm3 (3.80-5.20)
[2021-09-05 08:35] LABS: Bun/Creatinine Ratio 15.5 (12.0-20.0); Calcium, Blood 9.1 mg/dL (8.5-10.1); Creatinine, Blood 1.1 mg/dL (0.40-1.00); Magnesium, Blood 2.1 mg/dL (1.6-2.4); Potassium, Blood 4.5 mmol/L (3.5-5.5)
--- NOTE | 2021-09-05 10:26 | NUR ---
DAUGHTER, BORA([phone]), UPDATED ON PATIENT CONDITION. DAUGHTER TO COME IN DURING VISITING HOURS.
--- NOTE | 2021-09-05 15:28 | NUR ---
REPORT TO BETSY JOHNS IN PCU. ANSWER ALL QUESTIONS. AT THIS TIME PATIENT DENIES ANY CHEST PRESSURE OR DISCOMFORT, BUT DOES HAVE A HEADACHE AND HAS MEDICATED FOR IT. WILL BRING TO PCU.
--- NOTE | 2021-09-05 18:35 | NUR ---
PCU ARRIVAL / SHIFT SUMMARY PT BROUGHT TO PCU-01 BY WHEEL CHAIR FROM MEDICAL FLOOR @ APPROX 1545. PT A&O X4. VSS. SPO2 > 92% ON RA. MONITOR SHOWING AFIB, HR 70's-80's. PT ABLE TO INDEPENDENTLY AMBULATE FROM BED TO BSC FOR VOIDING. COLOSTOMY TO LLQ W/ SEMI FORMED BROWN STOOL, EMEPTIED UPON ARRIVAL TO UNIT. PT DENYING CP SINCE ARRIVAL TO UNIT. PT DOES REPORT PREVIOUS "HEAVINESS" TODAY WHILE AT REST THAT PT REPORTS WENT AWAY ON ITS OWN. PT CONFIRMS SHE WILL NOTIFY STAFF IF CP OR HEAVINESS RETURNS. PT ALSO REPORTS UNDERSTANDING OF PLAN FOR POTENTIAL ANGIO POSSIBLY ON THURSDAY. WILL REPORT OFF TO STEEL MANAGER RN.
--- NOTE | 2021-09-06 05:06 | NUR ---
SHIFT SUMMARY PT RESTED WELL THROUGH THE NIGHT. ALERT AND ORIENTED, ABLE TO MAKE NEEDS KNOWN. COOPERATIVE WITH PLAN OF CARE. SATS >95% ON ROOM AIR. TELE READS AFIB, RATE 70-90'S. NO C/O CHEST PAIN - DOES HAVE SCHEDULED NITRO PASTE ON CHEST. STAND BY TO BSC - VOIDED 5 TIMES THROUGH NIGHT. SELF MANAGES COLOSTOMY - UNKNOWN OUTPUT. NO WOUNDS. NO PAIN. VSS. CALL LIGHT WITHN REACH, BED IN LOWEST POSITION. WILL CONTINUE TO MONITOR.
[2021-09-06 05:07] LABS: BASOPHILS ABSOLUTE AUTO 0.03 K/mm3 (0.00-0.23); BASOPHILS PERCENT AUTO 1 % (0-2); EOSINOPHILS ABSOLUTE AUTO 0.26 K/mm3 (0.00-0.68); EOSINOPHILS PERCENT AUTO 5 % (0-6); Hematocrit 36.4 % (33.0-51.0); Hemoglobin 11.5 g/dL (11.5-16.0); IMMATURE GRAN ABSOLUTE AUTO 0.04 K/mm3 (0.00-0.10); IMMATURE GRAN PERCENT AUTO 1 % (0-1); LYMPHOCYTES ABSOLUTE AUTO 1.74 K/mm3 (0.84-5.20); LYMPHOCYTES PERCENT AUTO 30 % (21-46); MONOCYTES ABSOLUTE AUTO 0.56 K/mm3 (0.16-1.47); MONOCYTES PERCENT AUTO 10 % (4-13); Mean Corpuscular HGB 30.6 pg (26.0-34.0); Mean Corpuscular HGB Conc 31.6 g/dL (31.5-36.5); Mean Corpuscular Volume 97 fL (80-100); Mean Platelet Volume 10.6 fL (9.1-12.4); NEUTROPHILS ABSOLUTE AUTO 3.16 K/mm3 (1.96-9.15); NEUTROPHILS PERCENT AUTO 55 % (41-73); Platelet Count 339 K/mm3 (150-400); Red Blood Cell Count 3.76 M/mm3 (3.80-5.20); White Blood Cell Count 5.79 K/mm3 (4.00-11.30)
[2021-09-06 06:22] LABS: Albumin, Blood 2.6 g/dL (3.4-5.0); Anion Gap 10 mmol/L (6-16); Blood Urea Nitrogen 20 mg/dL (8-24); Bun/Creatinine Ratio 19.2 (12.0-20.0); CO2, Blood 21 mmol/L (21-32); Calcium, Blood 9.1 mg/dL (8.5-10.1); Chloride, Blood 110 mmol/L (98-108); Creatinine, Blood 1.04 mg/dL (0.40-1.00); Glomerular Filtration Rate 51 (60-); Glucose, Blood 97 mg/dL (70-99); Magnesium, Blood 1.8 mg/dL (1.6-2.4); Phosphorus, Blood 4.1 mg/dL (2.5-4.9); Potassium, Blood 4.5 mmol/L (3.5-5.5); Sodium, Blood 141 mmol/L (136-145)
--- NOTE | 2021-09-06 08:24 | NUR ---
Per chart review yesterday with Dr. Hewitt and review of stress test results, patient will need a heart cath placed. I went to visit the patient in her room yesterday afternoon. Her daughter, Sandie, was there visiting her. Patient and her daughter state she has a lot of family support at home. Patient prefers [facility] and [facility] if recommended.
--- NOTE | 2021-09-06 10:52 | NUR ---
Received referral from [facility] Airveyor Operator (Denisha Martínez) on 09/06/2021. Patient is to discharge with orders for home health and elected [facility]. Met with patient to further discuss the above. Patient is agreeable to the above. Discussed homebound status definition with patient. Patient verbalized understanding. Discussed what home health is vs what it is not (in home caregivers/housekeeping). Patient verbalized understanding. Discussed the next steps in the process of an initial assessment to determine frequency of visits. Again patient verbalized understanding. Offered a chance for patient to ask questions regarding the above of which there were none. At this time patient has no discharge orders entered. Will continue to monitor and follow for discharge. Almita Laguerre Referral Liaison
--- NOTE | 2021-09-06 17:02 | NUR ---
SHIFT SUMMARY PT IS ALERT AND ORIENTED X 4. SPO2 >90% VIA ROOM AIR. PT HAS DENIED CHEST PAIN/PRESSURE T/O SHIFT. TELE MONITORING IN PLACE, PT REMAINS IN AFIB RANGING 70'S-102 PER TELE REPORT, CHECO ON MONITORS. NO OTHER PAIN REPORTED. PT IS A SBA TO BEDSIDE COMMODE AND IS STEADY ON FEET. ACHS CBG'S ORDERED BUT NO COVERAGE WAS INDICATED DURING SHIFT. IV IN RIGHT ARM IS SALINE LOCKED. COLOSTOMY BAG LOCATED IN MID/UPPER LEFT ABD WAS CHANGED DURING SHIFT BY DATA INTEGRITY CONSULTANTNAT CURRAN DUE TO LEAKAGE. SKIN AROUND STOMA APPEARS RED AND RAW, PT REPORTS SENSITIVITY AROUND STOMA. STOMA/SKIN AROUND COLOSTOMY BAG IS NOW DRY, CLEAN. MANOLO WAS AT BEDSIDE THIS AFTERNOON. NO OTHER ACUTE CHANGES NOTED. CALL LIGHT IS IN REACH. PT WILL CALL APPROPRIATELY. BED IN LOW, WILL CONTINUE TO MONITOR.
--- NOTE | 2021-09-07 05:34 | NUR ---
shift summary pt rested well through the night. alert and oriented, able to make needs known. cooperative with plan of care. sats >95% on room air. tele reads afib - rate 87. no c/o chest pain at all - nitro paste on l chest wall. bp and hr wnl. voids to urinal, nothing out of ostomy bag overnight. npo after midnight for angio today. vss. no c/o pain. call light within reach, bed in lowest position. will continue to monitor.
--- NOTE | 2021-09-07 17:23 | NUR ---
SHIFT SUMMARY PT ALERT AND ORIENTED. VS STABLE. O2 SATS REMAIN ABOVE 90% ON RA. HR AFIB 80-90'S. PT DENIES ANY CP/PRESSURE ALL SHIFT. PLAN FOR ANGIO IN THE AM AND NPO AT MIDNIGHT. PT TOLERATING PO INTAKE. COLOSTOMY INTACT AND APPLIANCE CHANGED THIS SHIFT. PT ABLE TO VOID IN BSC. WILL CONTINUE TO MONITOR AND REPORT TO ONCOMING RN. CALL LIGHT IN REACH. PT CALLS APPROPRIATELY.
--- NOTE | 2021-09-08 06:45 | NUR ---
SHIFT SUMMARY PT IS ALERT AND ORIENTED. THERE HAVE BEEN NO ACUTE CHANGES T/O THE SHIFT. VITALS ARE STABLE AND PT IS ON ROOM AIR. PT HAS BEEN NPO SINCE MIDNIGHT. PT IS ABLE TO USE BSC AND CALLS IF NEEDING ASSISTANCE. CALL LIGHT IS WITHIN REACH.
[2021-09-08 08:31] LABS: Anion Gap 7 mmol/L (6-16); Blood Urea Nitrogen 19 mg/dL (8-24); Bun/Creatinine Ratio 18.6 (12.0-20.0); CO2, Blood 26 mmol/L (21-32); Calcium, Blood 9.4 mg/dL (8.5-10.1); Chloride, Blood 108 mmol/L (98-108); Creatinine, Blood 1.02 mg/dL (0.40-1.00); Glomerular Filtration Rate 52 (60-); Glucose, Blood 109 mg/dL (70-99); Phosphorus, Blood 3.9 mg/dL (2.5-4.9); Potassium, Blood 4.2 mmol/L (3.5-5.5); Sodium, Blood 141 mmol/L (136-145)
--- NOTE | 2021-09-08 08:48 | NUR ---
UPDATE PT TAKEN TO COMMUTER PILOT FOR PROCEDURE. WILL AWAIT RETURN
--- NOTE | 2021-09-08 10:00 | NUR ---
UPDATE PT RETURNS FROM THE [facility] [facility] DRIVER ALERT AND ORIENTED. VS STABLE. RIGHT RADIAL SITE SOFT, NONTENDER AND NO BLEEDING OR HEMATOMA. WILL CONTINUE TO MONITOR CLOSELY
[2021-09-08 10:21] LABS: Hematocrit 39.7 % (33.0-51.0); Hemoglobin 12.4 g/dL (11.5-16.0); Platelet Count 307 K/mm3 (150-400)
[2021-09-08 12:22] LABS: Influenza A, PCR NEGATIVE (NEGATIVE); Influenza B, PCR NEGATIVE (NEGATIVE); Resp Syncytial Virus, PCR NEGATIVE (NEGATIVE); SARS-Cov-2 (COVID-19) PCR, MMC NEGATIVE (NEGATIVE)
--- NOTE | 2021-09-08 14:20 | NUR ---
UPDATE ORDERS FOR TRANSFER TO [facility] INITIATED. COBRA PACKET COMPLETE. REPORT CALLED TO RENETTA JOHNS. FAMILY AT BEDSIDE AND UPDATED. TRANSPORT HERE TO GET PT. PT TAKEN BY [facility] WITH ALL OF HER BELONGINGS. TR BAND RECOVERED PER PROTOCOL PRIOR TO DISHARGE.
--- NOTE | 2021-09-09 08:32 | NUR ---
Review of patient's records today- 09/09/2021 indicates that patient was transferred to [facility]. Notified [facility] adult daycare coordinator (Ana Lilia Alcocer) of the above. No further interventions required. Almita Laguerre Referral Liaison
== END 2021-09-08 14:00 | disposition short-term general hospital (02) | DRG 281 ==
LOC: ER 23:50 → ERHOLD 23:51 → MEDS 09-04 15:28 → PCU 09-05 15:38
PROVIDERS: Family Medicine; Internal Medicine Cardiovascular Disease; Internal Medicine Endocrinology, Diabetes & Metabolism; Student in an Organized Health Care Education/Training Program; ADMIT Internal Medicine
PROC: B2111ZZ Fluoroscopy of Multiple Coronary Arteries using Low Osmolar Contrast (ICD-10-PCS; principal; 2021-09-08)
DX: I21.9 Acute myocardial infarction, unspecified (principal); I50.32 Chronic diastolic (congestive) heart failure; I82.811 Embolism and thrombosis of superficial veins of right lower extremity; I25.10 Atherosclerotic heart disease of native coronary artery without angina pectoris; I48.91 Unspecified atrial fibrillation; I11.0 Hypertensive heart disease with heart failure; G89.29 Other chronic pain; M54.9 Dorsalgia, unspecified; K21.9 Gastro-esophageal reflux disease without esophagitis; M19.90 Unspecified osteoarthritis, unspecified site; M85.80 Other specified disorders of bone density and structure, unspecified site; E78.5 Hyperlipidemia, unspecified; Z79.01 Long term (current) use of anticoagulants; Z90.49 Acquired absence of other specified parts of digestive tract; Z98.890 Other specified postprocedural states; Z95.5 Presence of coronary angioplasty implant and graft; Z66 Do not resuscitate; Z88.8 Allergy status to other drugs, medicaments and biological substances; Z79.899 Other long term (current) drug therapy; Z20.822 Contact with and (suspected) exposure to COVID-19; E83.42 Hypomagnesemia; Z53.29 Procedure and treatment not carried out because of patient's decision for other reasons
CPT/HCPCS: 0241U; 36415; 71045; 76937; 78452; 80048; 80069; 82947; 83735; 83880; 84484; 85014; 85018; 85025; 85049; 85730; 93005; 93010; 93017; 93306; 93454; 93971; 94762; 99152; 99153; 99285-25; A9270; A9500; C1769; C1894; G0378; J0706; J1644; J2250; J2370; J2785; J3010; J3475; J7030; Q9967

== ENCOUNTER → 2021-11-08 | Outpatient (CLI) | payer MEDICARE, OTHER ==
[~2021-11-08] MED LIST changes: +ATOR40TA PO; +DILTIAZEM 24HR120 M4 PO; +DILTIAZEM 24HR180 M3 PO; +METO50ER PO
== END | disposition home or self-care (01) ==
LOC: PLD 07:23
DX: C44.329 Squamous cell carcinoma of skin of other parts of face (principal)
CPT/HCPCS: 88305

== ENCOUNTER 2022-02-13 16:08 | Inpatient (IN) | payer MEDICARE, OTHER ==
[~2022-02-13] VITALS: Ht 139.7 cm; Wt 67.4 kg
[~2022-02-13 16:08] MED LIST changes: -ATOR40TA PO; -DILTIAZEM 24HR120 M4 PO; -DILTIAZEM 24HR180 M3 PO; -METO50ER PO
[2022-02-13 16:28] LABS: BASOPHILS ABSOLUTE AUTO 0.04 K/mm3 (0.00-0.23); BASOPHILS PERCENT AUTO 1 % (0-2); EOSINOPHILS ABSOLUTE AUTO 0.12 K/mm3 (0.00-0.68); EOSINOPHILS PERCENT AUTO 2 % (0-6); Hemoglobin 14.4 g/dL (11.5-16.0); IMMATURE GRAN ABSOLUTE AUTO 0.04 K/mm3 (0.00-0.10); IMMATURE GRAN PERCENT AUTO 1 % (0-1); LYMPHOCYTES ABSOLUTE AUTO 2.85 K/mm3 (0.84-5.20); LYMPHOCYTES PERCENT AUTO 38 % (21-46); MONOCYTES ABSOLUTE AUTO 0.78 K/mm3 (0.16-1.47); MONOCYTES PERCENT AUTO 10 % (4-13); Mean Corpuscular HGB 32.3 pg (26.0-34.0); Mean Corpuscular HGB Conc 32.7 g/dL (31.5-36.5); Mean Corpuscular Volume 99 fL (80-100); Mean Platelet Volume 10.7 fL (9.1-12.4); NEUTROPHILS ABSOLUTE AUTO 3.77 K/mm3 (1.96-9.15); NEUTROPHILS PERCENT AUTO 50 % (41-73); Platelet Count 222 K/mm3 (150-400); RDW Coefficient Variation 16.8 % (11.7-14.2); RDW Standard Deviation 61.4 fL (35.1-46.3); Red Blood Cell Count 4.46 M/mm3 (3.80-5.20)
[2022-02-13 16:45] LABS: Albumin, Blood 3.5 g/dL (3.4-5.0); Albumin/Globulin Ratio 0.9 (0.8-1.8); Bilirubin, Total 0.5 mg/dL (0.1-1.0); Calcium, Blood 9.4 mg/dL (8.5-10.1); Creatinine, Blood 0.86 mg/dL (0.40-1.00); Globulin, Blood 4.1 g/dL (2.2-4.0); Total Protein, Blood 7.6 g/dL (6.4-8.2)
[2022-02-13 22:12] LABS: International Normalized Ratio 1.08; Prothrombin Time Results 11.3 Sec (9.7-11.5)
[2022-02-14 05:27] LABS: BASOPHILS ABSOLUTE AUTO 0.04 K/mm3 (0.00-0.23); BASOPHILS PERCENT AUTO 1 % (0-2); EOSINOPHILS ABSOLUTE AUTO 0.15 K/mm3 (0.00-0.68); EOSINOPHILS PERCENT AUTO 2 % (0-6); Hematocrit 39.1 % (33.0-51.0); Hemoglobin 12.6 g/dL (11.5-16.0); IMMATURE GRAN ABSOLUTE AUTO 0.04 K/mm3 (0.00-0.10); IMMATURE GRAN PERCENT AUTO 1 % (0-1); LYMPHOCYTES ABSOLUTE AUTO 2.74 K/mm3 (0.84-5.20); LYMPHOCYTES PERCENT AUTO 37 % (21-46); MONOCYTES ABSOLUTE AUTO 0.71 K/mm3 (0.16-1.47); MONOCYTES PERCENT AUTO 10 % (4-13); Mean Corpuscular HGB Conc 32.2 g/dL (31.5-36.5); Mean Corpuscular Volume 99 fL (80-100); Mean Platelet Volume 10.9 fL (9.1-12.4); NEUTROPHILS ABSOLUTE AUTO 3.68 K/mm3 (1.96-9.15); NEUTROPHILS PERCENT AUTO 50 % (41-73); Platelet Count 198 K/mm3 (150-400); RDW Coefficient Variation 16.9 % (11.7-14.2); RDW Standard Deviation 62.4 fL (35.1-46.3); Red Blood Cell Count 3.94 M/mm3 (3.80-5.20); White Blood Cell Count 7.36 K/mm3 (4.00-11.30)
--- NOTE | 2022-02-14 05:29 | NUR ---
SHIFT SUMMARY/ADMIT PT TO UNIT FROM ED. AXO. ON 2LNC UPON ARRIVAL, SWITCHED TO RA, SPO2 >94%. PT IN AFIB 130'S ON DILTIAZEM GTT @ 10MG/HR UPON ATRRIVAL. PO METOIPROLOL ADMINISTERED AND PT'S HR TRENDED DOWN TO 70'S. DILT GTT TURNED OFF AND HAS BEEN ON STANDBY SINCE. HEPARIN GTT INFUSING POST ADMIT, NO INCIDENT WITH THIS. PT HAS DENIED CP/PRESSURE T/O SHIFT DESPITE RAPIDLY INCREASING TROPONINS, DOCTORS AWARE. PT NPO SINCE MIDNIGHT. PT UP TO BSC A FEW TIMES THIS SHIFT. OTHERWISE, PT RESTING QUIETELY. BED ALARM ON.
[2022-02-14 05:47] LABS: Albumin, Blood 2.8 g/dL (3.4-5.0); Albumin/Globulin Ratio 0.8 (0.8-1.8); Bilirubin, Total 0.5 mg/dL (0.1-1.0); Bun/Creatinine Ratio 21.6 (12.0-20.0); Calcium, Blood 8.9 mg/dL (8.5-10.1); Creatinine, Blood 0.84 mg/dL (0.40-1.00); Globulin, Blood 3.6 g/dL (2.2-4.0); Potassium, Blood 4.3 mmol/L (3.5-5.5); Total Protein, Blood 6.4 g/dL (6.4-8.2)
[2022-02-14 09:45] LABS: SARS-Cov-2 (COVID-19) PCR, MMC NEGATIVE (NEGATIVE)
--- NOTE | 2022-02-14 10:25 | NUR ---
AM NOTE: PATIENT ALERT AND ORIENTED X4. A LITTLE HARD HEARDING. NEURO WNL. DENIES NUMBNESS/TINGLING. PERRLA, WEARING GLASSES. ABLE TO MOVE SELF IN BED. UP WITH SBA. ON ROOM AIR SATING ABOVE 94%. LUNGS SOUNDING CLEAR. DENIES SOB. TELE SHOWING AFIB WITH HR 110-120'S THIS AM. DENIES CHEST PAIN/PRESSURE. MORN MEDS GIVEN. HEPARIN INFUSING. DENIES ABDOMINAL PAIN/NAUSEA. COLOSTOMY BAG IN PLACE. PATIENT STATES SHE CHANGED BAG 02/13. OUTPUT WNL FOR PATIENT. BROWN AND PASTY. SKIN OVERALL C/D/I. EATING BREAKFAST AT THIS TIME. CARDIOLOGY, DR. BENTLEY IN TO SEE PATIENT. MED MANAGEMENT AT THIS TIME, NO PROCEDURE TODAY. DIET ORDERED. DR. SAUNDERS UPDATED. NO NEW ORDERS AT THIS TIME. CALL LIGHT IN REACH. PASTORAL CARE VISITING PATIENT AT THIS TIME. WILL CONTINUE TO MONITOR.
--- NOTE | 2022-02-14 10:35 | NUR ---
DR. SAUNDERS BY TO SEE PATIENT. NO NEW ORDERS AT THIS TIME. THIS RN TO COMMUNICATE THROUGHOUT SHIFT ON PATIENTS HEART RATE. PATIENT CONTINUES TO DENY CHEST PAIN/PRESSURE. HR CONTINUES IN 110-120'S. ORAL CARDIAC MEDS GIVEN THIS AM. WILL WAIT TO SEE CARDIOLOGY ORDERS AND CONTINUE TO CHECK IN WITH DR. SAUNDERS.
--- NOTE | 2022-02-14 10:46 | NUR ---
Pt. is awake in bed, sunita Grossman and welcomes my visit. Pt. is unsettled with being unsure about being discharged. Listen empathetically and identify that her family lives in her home or adjecent to her property. Pt. displays evidence of engagement and trust. Establish rapport. [place] with Pt. Pt. verbalizes gratitude for the spiritual care visit.
--- NOTE | 2022-02-14 15:23 | NUR ---
UPDATE: CALL PLACED TO DR. SAUNDERS TO UPDATE ON HR. HR SUSTAINING 120-130'S. NO NEW ORDERS AT THIS TIME. WILL CONTINUE TO MONITOR.
--- NOTE | 2022-02-14 18:02 | NUR ---
SHIFT SUMMARY: SEE PREVIOUS NOTES FOR UPDATES THROUGHOUT DAY. NO ACUTE CHANGES. INCREASED DOSE OF METOPROLOL GIVEN WITH DINNER, HR TRENDING DOWN. HR 90-110'S AT THIS TIME. CONTINUES TO DENY CHEST PAIN/PRESSURE. BP ON SOFTER SIDE BUT STABLE. DENIES DIZZINESS. REMAINS ON ROOM AIR. COLOSTOMY OUTPUT WNL. UP TO BATHROOM WITH ONE PERSON ASSIST. HEPARIN DRIP INFUSING, SEE EMAR. PATIENT DENIES PAIN/NEEDS AT THIS TIME. CALL LIGHT IN REACH. WILL CONTINUE TO MONITOR AND REPORT OFF TO ONCOMING RN.
--- NOTE | 2022-02-14 21:46 | NUR ---
HEART RATE 130'S-140 PATIENT HEART RATE SUSTAINING IN 130'S-140 IN AFIB RHYTHM. CALL MADE TO DR. DOBSON AND ORDER GIVEN OF CARDIZEM 10MG IV X 1.
--- NOTE | 2022-02-14 22:22 | NUR ---
RHYTHM CHANGE CARDIZEM 10MG IV X 1 GIVEN FOR HR 130'S-140'S AND PT C/O CHEST PRESSURE. EKG COMPLETED AND SHOWED ATRIAL FLUTTER. AFTER CARDIZEM ADMINISTERED RATE DECREAED TO 70'S WITH MONITOR SHOWING ATRIAL FLUTTER.
--- NOTE | 2022-02-15 06:24 | NUR ---
SHIFT SUMMARY PATIENT HAD EPISODE OF TACHYCARDIA DURING SHIFT-REQUIRED DOSE OF CARDIZEM 10MG IV X 1. SEE PREVIOUS NURSE NOTES. AFTER ADMINISTERING THE CARDIZEM, RHYTHM CHANGED TO AFLUTTER. NO OTHER EVENTS FOLLOWING THE ABOVE. HR DID INCREASE WITH EXERTION WHEN PATIENT AMBULATED TO THE BATHROOM. OTHERWISE HR MAINTAINED BELOW 120. BP REMAINED STABLE, ALTHOUGH SOFT. THIS AM PATIENT ATTEMPTED EXITING BED TO USE BATHROOM WITHOUT NOTIFYING STAFF. BED ALARM WAS TURNED ON FOLLOWING THIS EVENT. HEPARIN REMAINS AT 9 UNTIS/KG/HR TO 20G IV IN THE LT AC. NO OTHER CHANGES DURING SHIFT.
[2022-02-15 07:57] LABS: BASOPHILS ABSOLUTE AUTO 0.05 K/mm3 (0.00-0.23); BASOPHILS PERCENT AUTO 1 % (0-2); EOSINOPHILS ABSOLUTE AUTO 0.19 K/mm3 (0.00-0.68); EOSINOPHILS PERCENT AUTO 3 % (0-6); Hematocrit 41.2 % (33.0-51.0); Hemoglobin 13.1 g/dL (11.5-16.0); IMMATURE GRAN ABSOLUTE AUTO 0.04 K/mm3 (0.00-0.10); IMMATURE GRAN PERCENT AUTO 1 % (0-1); LYMPHOCYTES ABSOLUTE AUTO 2.52 K/mm3 (0.84-5.20); LYMPHOCYTES PERCENT AUTO 36 % (21-46); MONOCYTES ABSOLUTE AUTO 0.79 K/mm3 (0.16-1.47); MONOCYTES PERCENT AUTO 11 % (4-13); Mean Corpuscular HGB 32.2 pg (26.0-34.0); Mean Corpuscular HGB Conc 31.8 g/dL (31.5-36.5); Mean Corpuscular Volume 101 fL (80-100); NEUTROPHILS ABSOLUTE AUTO 3.38 K/mm3 (1.96-9.15); NEUTROPHILS PERCENT AUTO 49 % (41-73); Platelet Count 194 K/mm3 (150-400); RDW Coefficient Variation 16.8 % (11.7-14.2); RDW Standard Deviation 63.2 fL (35.1-46.3); Red Blood Cell Count 4.07 M/mm3 (3.80-5.20); White Blood Cell Count 6.97 K/mm3 (4.00-11.30)
[2022-02-15 08:12] LABS: Magnesium, Blood 1.6 mg/dL (1.6-2.4)
[2022-02-15 08:13] LABS: Albumin, Blood 3.1 g/dL (3.4-5.0); Anion Gap 10 mmol/L (6-16); Blood Urea Nitrogen 21 mg/dL (8-24); Bun/Creatinine Ratio 22.5 (12.0-20.0); CO2, Blood 21 mmol/L (21-32); Calcium, Blood 9.3 mg/dL (8.5-10.1); Chloride, Blood 107 mmol/L (98-108); Creatinine, Blood 0.93 mg/dL (0.40-1.00); Glomerular Filtration Rate 61 (60-); Glucose, Blood 136 mg/dL (70-99); Phosphorus, Blood 3.6 mg/dL (2.5-4.9); Potassium, Blood 4.3 mmol/L (3.5-5.5); Sodium, Blood 138 mmol/L (136-145)
--- NOTE | 2022-02-15 08:53 | NUR ---
AM NOTE: PATIENT ALERT AND ORIENTED X4. NEURO WNL. ONE PERSON ASSIST WITH FWW TO BATHROOM. DENIES NUMBNESS/TINGLING. ON ROOM AIR SATING ABOVE 94%. LUNGS SOUNDING CLEAR. DENIES SOB. TELE SHOWING AFIB WITH HR 140'S THIS AM. SOME "CHEST HEAVINESS" ASSOCIATED WITH HIGH HR. DR. SAUNDERS IN TO ASSESS, CHANGES MADE TO MEDICATIONS. MORN CARDIZEM GIVEN. BP ON SOFTER SIDE WITH SBP 80-90'S. HOLDING MORN METOPROLOL AT THIS TIME. RETAKING BP Q30 MIN TO ASSESS METOPROLOL ADMINISTRATION. HEPARIN INFUSING AT 9 UNITS/KG/HOUR. VERIFIED WITH CRM BUSINESS ANALYST RN. DENIES ABDOMINAL PAIN/NAUSEA. NOT INTERESTED IN EATING MUCH BREAKFAST. COLOSTOMY BAG TO LUQ, GREEN/BROWN PASTY/LOOSE OUTPUT. PATIENT MANAGING BAG WITH RN HELP. DENIES NEEDS AT THIS TIME. WILL CONTINUE TO MONITOR HR AND BP CLOSELY. SITTING UP IN CHAIR WATCHING TV, CALL LIGHT IN REACH.
[2022-02-15 10:27] LABS: Hematocrit 41.6 % (33.0-51.0); Hemoglobin 13.2 g/dL (11.5-16.0); Platelet Count 205 K/mm3 (150-400)
--- NOTE | 2022-02-15 17:48 | NUR ---
SHIFT SUMMARY: NO ACUTE CHANGES. NEURO REMAINS UNCHANGED. ON ROOM AIR. TELE SHOWING AFIB WITH HR AVERAGING 80'S. UP TO 130'S WHEN UP MOVING AROUND AND AT TIMES DOWN TO 60'S WHEN SLEEPING. NO NEW EPISODES OF CHEST PAIN/HEAVINESS. BP ON SOFTER SIDE BUT STABLE. DENIES ANY DIZZINESS. COLOSTOMY BAG CHANGED THIS AFTERNOON. TOLERATING PO DIET. UP TO BATHROOM WITH ONE PERSON ASSIST AND FWW. HEPARIN DRIP INFUSING AT 10 UNITS/KG/HOUR. CALL LIGHT IN REACH. SITTING UP IN CHAIR AT THIS TIME EATING DINNER. WILL CONTINUE TO MONITOR AND REPORT OFF TO ONCOMING RN.
--- NOTE | 2022-02-15 21:57 | NUR ---
CARE ASSUMPTION: RECEIVED REPORT FROM COLEMAN DAS RN. PATIENT WATCHING TV IN BED. HR 60-70S, DENIES CHEST PAIN OR SOB. VERIFIED HEPARIN WITH OFF-GOING RN. AMBULATED PATIENT TO TOILET. PATIENT CHANGED OSTOMY BAG. MEDICATED PER EMAR. BED LOW WITH CALL LIGHT IN REACH.
[2022-02-16 04:08] LABS: BASOPHILS ABSOLUTE AUTO 0.04 K/mm3 (0.00-0.23); BASOPHILS PERCENT AUTO 1 % (0-2); EOSINOPHILS ABSOLUTE AUTO 0.24 K/mm3 (0.00-0.68); EOSINOPHILS PERCENT AUTO 3 % (0-6); Hematocrit 40.4 % (33.0-51.0); IMMATURE GRAN ABSOLUTE AUTO 0.04 K/mm3 (0.00-0.10); IMMATURE GRAN PERCENT AUTO 1 % (0-1); LYMPHOCYTES ABSOLUTE AUTO 2.73 K/mm3 (0.84-5.20); LYMPHOCYTES PERCENT AUTO 38 % (21-46); MONOCYTES PERCENT AUTO 11 % (4-13); Mean Corpuscular HGB 31.9 pg (26.0-34.0); Mean Corpuscular HGB Conc 32.2 g/dL (31.5-36.5); Mean Corpuscular Volume 99 fL (80-100); NEUTROPHILS PERCENT AUTO 46 % (41-73); Platelet Count 188 K/mm3 (150-400); RDW Coefficient Variation 16.5 % (11.7-14.2); RDW Standard Deviation 61.4 fL (35.1-46.3); Red Blood Cell Count 4.07 M/mm3 (3.80-5.20); White Blood Cell Count 7.15 K/mm3 (4.00-11.30)
[2022-02-16 04:39] LABS: Albumin, Blood 3.1 g/dL (3.4-5.0); Anion Gap 9 mmol/L (6-16); Blood Urea Nitrogen 20 mg/dL (8-24); Bun/Creatinine Ratio 22.1 (12.0-20.0); CO2, Blood 22 mmol/L (21-32); Calcium, Blood 9.4 mg/dL (8.5-10.1); Chloride, Blood 108 mmol/L (98-108); Creatinine, Blood 0.91 mg/dL (0.40-1.00); Glomerular Filtration Rate 63 (60-); Glucose, Blood 125 mg/dL (70-99); Magnesium, Blood 1.6 mg/dL (1.6-2.4); Phosphorus, Blood 3.5 mg/dL (2.5-4.9); Potassium, Blood 4.1 mmol/L (3.5-5.5); Sodium, Blood 139 mmol/L (136-145)
--- NOTE | 2022-02-16 05:39 | NUR ---
SHIFT SUMMARY: PATIENT MAINTAINED HR IN 90-110S MOST OF NIGHT. SUSTAINED 130-140S AROUND 0400 AND COMPLAINED OF CHEST PAIN. HOSPITALIST CALLED FOR NEW ORDERS. MEDICATED PER EMAR. HEPARIN ADJUSTED TO 11 U/KG/HR THIS AM AND RUNNING TO LEFT AC IV SITE. BED LOW WITH CALL LIGHT IN PLACE. WILL CONTINUE TO MONITOR AND REPORT TO ONCOMING RN.
--- NOTE | 2022-02-16 09:08 | NUR ---
AM NOTE: ALERT AND ORIENTED. NEURO WNL. DENIES NUMBNESS/TINGLING. ONE PERSON ASSIST WITH WALKER. ON ROOM AIR SATING ABOVE 94%. OCCASIONAL COUGHING TO CLEAR THROAT. DENIES FEELING SOB. SOB WITH UP TO BATHROOM. TELE SHOWING AFLUTTER THIS AM WITH HR 130-140'S. CHEST HEAVINESS ASSOCIATED WITH ELEVATED HR. DR. SAUNDERS IN THIS AM, CHANGES TO MEDS. CARDIAC MEDICATIONS GIVEN THIS AM, NO RELIEF IN HR YET. WILL CONTINUE TO MONITOR HR AND UPDATE DR. SAUNDERS. BP STABLE. HEPARIN DRIP STOPPED AND ELIQUIS RESTARTED. MAG AND SODIUM PHOS TO BE REPLACED. MAG INFUSING AT THIS TIME. COLOSTOMY BAG AND OUTPUT WNL. ABLE TO TURN SELF IN BED. CALLING NEEDED. EATING AT THIS TIME. WILL CONTINUE TO MONITOR.
--- NOTE | 2022-02-16 15:18 | NUR ---
TRANSFER NOTE: NOT ACUTE CHANGES. SEE PREVIOUS NOTES. TELE SHOWING AFLUTTER WITH HR 70-80'S. DENIES CHEST PAIN/PRESSURE. BP STABLE. TELE MONITOR NOTIFIED OF TRANSFER. REMAINS ON ROOM AIR. DENIES NEED FOR INSULIN ON BLOOD SUGAR CHECKS. CALL PLACED TO DAUGHTER BORA TO UPDATE. TRANSFER VIA WHEELCHAIR WITH ALL PERSONAL BELONGINGS.
--- NOTE | 2022-02-16 15:46 | NUR ---
pt arrived to 355 via wheelchair from u, a/ox3, able to transfer to bed with stand by assist, able to make her needs known, settled in bed with call light and water. no needs at this time. denies any complaints of chest pain today. call light in reach.
--- NOTE | 2022-02-16 18:05 | NUR ---
Pt has no needs, denies chest pain/pressure, no acute changes this shift. call light in reach.
[2022-02-17 04:41] LABS: BASOPHILS ABSOLUTE AUTO 0.02 K/mm3 (0.00-0.23); BASOPHILS PERCENT AUTO 0 % (0-2); EOSINOPHILS ABSOLUTE AUTO 0.17 K/mm3 (0.00-0.68); EOSINOPHILS PERCENT AUTO 3 % (0-6); Hematocrit 36.5 % (33.0-51.0); Hemoglobin 11.6 g/dL (11.5-16.0); IMMATURE GRAN ABSOLUTE AUTO 0.02 K/mm3 (0.00-0.10); IMMATURE GRAN PERCENT AUTO 0 % (0-1); LYMPHOCYTES ABSOLUTE AUTO 1.85 K/mm3 (0.84-5.20); LYMPHOCYTES PERCENT AUTO 33 % (21-46); MONOCYTES ABSOLUTE AUTO 0.67 K/mm3 (0.16-1.47); MONOCYTES PERCENT AUTO 12 % (4-13); Mean Corpuscular HGB 32.1 pg (26.0-34.0); Mean Corpuscular HGB Conc 31.8 g/dL (31.5-36.5); Mean Corpuscular Volume 101 fL (80-100); Mean Platelet Volume 10.6 fL (9.1-12.4); NEUTROPHILS ABSOLUTE AUTO 2.84 K/mm3 (1.96-9.15); NEUTROPHILS PERCENT AUTO 51 % (41-73); Platelet Count 175 K/mm3 (150-400); RDW Coefficient Variation 16.7 % (11.7-14.2); RDW Standard Deviation 62.2 fL (35.1-46.3); Red Blood Cell Count 3.61 M/mm3 (3.80-5.20); White Blood Cell Count 5.57 K/mm3 (4.00-11.30)
[2022-02-17 04:58] LABS: Albumin, Blood 2.8 g/dL (3.4-5.0); Anion Gap 8 mmol/L (6-16); Blood Urea Nitrogen 17 mg/dL (8-24); Bun/Creatinine Ratio 20.7 (12.0-20.0); CO2, Blood 25 mmol/L (21-32); Chloride, Blood 108 mmol/L (98-108); Creatinine, Blood 0.82 mg/dL (0.40-1.00); Glomerular Filtration Rate 71 (60-); Glucose, Blood 115 mg/dL (70-99); Magnesium, Blood 1.5 mg/dL (1.6-2.4); Phosphorus, Blood 4.3 mg/dL (2.5-4.9); Potassium, Blood 3.9 mmol/L (3.5-5.5); Sodium, Blood 141 mmol/L (136-145)
--- NOTE | 2022-02-17 05:28 | NUR ---
END OF SHIFT NOTE PT CALLS APPROPRIATLY TO USE THE BATHROOM. PT MANAGES OSTOMY, VSS. NO ACUTE CHANGES IN THE NIGHT. PT DENIES CP.
--- NOTE | 2022-02-17 07:53 | NUR ---
pt laying in bed watching tv, a/ox3, pleasant and cooperative with care, follows commands well, denies pain or sob, states she had a good night, lungs are clear t/o, on r/a, resp even and unlabored, no cough noted, hrirr, tele in place running aflutter per residential monitor, see strip, no edema noted, ppp+2, cap refill <3sec, vs stable, afebrile, piv site to lac site is clear and patent, btx4, abd flat soft nontender, voids without diff, skin c/w/d, maew, earle call light in reach.
--- NOTE | 2022-02-17 16:06 | NUR ---
pt complained of nausea, offered crackers and soada, she was agreeable and doesn't want medications, she said the crackers helped. no further needs. assisted her back to bed, no further needs. call light in reach.
--- NOTE | 2022-02-17 18:25 | NUR ---
pt had an uneventful day, a small amount of nausea which was controlled with food, did have some episodes of heart rate in the 140's for a short time, other blue no acute changes this shift. call light in reach.
--- NOTE | 2022-02-18 01:33 | NUR ---
PT REQUESTING IV REMOVAL AND REFUSING A NEW IV. PT STATED SHE IS BEING DISCHARGED TOMORROW AND DOES NOT WANT ONE. IF THERE IS AN EMERGENCY SHE IS OKAY WITH GETTING AN ADDITIONAL ONE PLACED. PT IS ON TELELMETRY. DR IBARRA CALLED AND IS OKAY WITH PATIENT MAKING THIS DESICION. PT IS ALERT AND ORIENTED X4.
[2022-02-18] MEDS ORDERED: ATOR40TA PO (03:44)
[2022-02-18] MEDS ORDERED: DILTIAZEM 24HR120 M4 PO (03:44)
[2022-02-18 05:34] LABS: BASOPHILS ABSOLUTE AUTO 0.02 K/mm3 (0.00-0.23); BASOPHILS PERCENT AUTO 0 % (0-2); EOSINOPHILS PERCENT AUTO 3 % (0-6); Hematocrit 36.8 % (33.0-51.0); Hemoglobin 11.7 g/dL (11.5-16.0); IMMATURE GRAN ABSOLUTE AUTO 0.02 K/mm3 (0.00-0.10); IMMATURE GRAN PERCENT AUTO 0 % (0-1); LYMPHOCYTES ABSOLUTE AUTO 1.79 K/mm3 (0.84-5.20); LYMPHOCYTES PERCENT AUTO 31 % (21-46); MONOCYTES PERCENT AUTO 12 % (4-13); Mean Corpuscular HGB 32.1 pg (26.0-34.0); Mean Corpuscular HGB Conc 31.8 g/dL (31.5-36.5); Mean Corpuscular Volume 101 fL (80-100); Mean Platelet Volume 10.8 fL (9.1-12.4); NEUTROPHILS ABSOLUTE AUTO 3.08 K/mm3 (1.96-9.15); NEUTROPHILS PERCENT AUTO 53 % (41-73); Platelet Count 183 K/mm3 (150-400); RDW Coefficient Variation 16.8 % (11.7-14.2); RDW Standard Deviation 61.8 fL (35.1-46.3); Red Blood Cell Count 3.65 M/mm3 (3.80-5.20); White Blood Cell Count 5.81 K/mm3 (4.00-11.30)
[2022-02-18 05:54] LABS: Albumin, Blood 2.9 g/dL (3.4-5.0); Anion Gap 8 mmol/L (6-16); Blood Urea Nitrogen 15 mg/dL (8-24); Bun/Creatinine Ratio 18.8 (12.0-20.0); CO2, Blood 24 mmol/L (21-32); Calcium, Blood 9.2 mg/dL (8.5-10.1); Chloride, Blood 108 mmol/L (98-108); Glomerular Filtration Rate 73 (60-); Glucose, Blood 120 mg/dL (70-99); Magnesium, Blood 1.2 mg/dL (1.6-2.4); Phosphorus, Blood 3.9 mg/dL (2.5-4.9); Potassium, Blood 3.8 mmol/L (3.5-5.5); Sodium, Blood 140 mmol/L (136-145)
[2022-02-18] MEDS ORDERED: DILTIAZEM 24HR180 M3 PO (13:40)
[2022-02-18] MEDS ORDERED: Isosorbide Mono30 MG PO (13:43)
[2022-02-18] MEDS ORDERED: METO50ER PO (13:45)
[2022-02-18] MEDS ORDERED: MULVITA PO (13:46)
--- NOTE | 2022-02-18 14:32 | NUR ---
PT DISCHARGED AT 1410 WITH DAUGHTER TO TRANSPORT. ALL PAPERWORK REVIEWED AND EDUCATIONAL MATERIAL SENT. AOX4 AND COOPERATIVE OF NO DISTRESS NOTED. PT 1 PERSON TO RESTROOM. OSTOMY BAG CHANGED. MILD BLEEDING AROUND EDGES. BAG REPLACED AND PT TOLERATED WELL. REVEIWED MED CHANGES WITH PT AND DAUGHTER. UNDTERSTANDING WAS VERABALIZED. PT ESCORTED OUT VIA WHEEL CHAIR.
== END 2022-02-18 14:19 | disposition home or self-care (01) | DRG 281 ==
LOC: ER 16:08 → PCU 21:02 → MEDS 21:09 → PCU 21:09 → MEDS 02-16 15:45
PROVIDERS: Family Medicine; Internal Medicine Cardiovascular Disease; Physician Assistant; ADMIT Internal Medicine
DX: I21.4 Non-ST elevation (NSTEMI) myocardial infarction (principal); I50.32 Chronic diastolic (congestive) heart failure; I48.92 Unspecified atrial flutter; G89.29 Other chronic pain; Z66 Do not resuscitate; Z20.822 Contact with and (suspected) exposure to COVID-19; K22.70 Barrett's esophagus without dysplasia; M85.80 Other specified disorders of bone density and structure, unspecified site; M54.9 Dorsalgia, unspecified; M19.90 Unspecified osteoarthritis, unspecified site; I25.10 Atherosclerotic heart disease of native coronary artery without angina pectoris; E78.5 Hyperlipidemia, unspecified; I11.0 Hypertensive heart disease with heart failure; I67.9 Cerebrovascular disease, unspecified; M50.30 Other cervical disc degeneration, unspecified cervical region; I48.91 Unspecified atrial fibrillation; I25.2 Old myocardial infarction; Z93.3 Colostomy status; Z79.01 Long term (current) use of anticoagulants; Z90.49 Acquired absence of other specified parts of digestive tract; Z90.89 Acquired absence of other organs; Z88.7 Allergy status to serum and vaccine; Z88.8 Allergy status to other drugs, medicaments and biological substances; Z98.890 Other specified postprocedural states; Z79.899 Other long term (current) drug therapy
CPT/HCPCS: 36415; 71046; 80053; 80069; 82947; 83735; 84484; 85014; 85018; 85025; 85049; 85610; 85730; 93005; 93010; 93308; 94762; 96365; 96375; 96376; 99285-25; A9270; J1644; J2405; J3475; J7060; U0004

== ENCOUNTER 2023-03-02 21:04 | Emergency (ER) | payer MEDICARE, OTHER ==
[~2023-03-02] VITALS: Ht 139.7 cm; Wt 63.5 kg
[~2023-03-02 21:04] MED LIST changes: +ATOR40TA PO; +DILTIAZEM 24HR120 M4 PO; +DILTIAZEM 24HR180 M3 PO; +METO50ER PO; +Roxicodone5 MG PO; +SPIRONOLACTONE25 MG PO
[2023-03-02 23:34] VITALS: BP 122/62
[2023-03-05] MEDS ORDERED: OXYC5 PO (18:33)
== END 2023-03-02 23:36 | disposition home or self-care (01) ==
LOC: ER 21:04
DX: S70.01XA Contusion of right hip, initial encounter (principal); W07.XXXA Fall from chair, initial encounter; Z88.8 Allergy status to other drugs, medicaments and biological substances; Z88.1 Allergy status to other antibiotic agents; Z79.899 Other long term (current) drug therapy; Z88.7 Allergy status to serum and vaccine
CPT/HCPCS: 73502; 93005; 93010; 99284-25